=== PATIENT | male | born 1985 | race Caucasian/White ===

== ENCOUNTER 2023-03-12 12:50 | Outpatient (RCR) | payer OTHER, SELFPAY | END 2023-04-21 11:34 | disposition home or self-care (01) | LOC: PT 12:50 | PROVIDERS: PCP Nurse Practitioner Family | DX: M50.30 Other cervical disc degeneration, unspecified cervical region (principal) | CPT/HCPCS: 20561; 97010; 97012; 97014; 97110; 97140; 97162 ==

== ENCOUNTER 2023-05-24 14:00 | Outpatient (OUT) | payer OTHER, SELFPAY ==
--- NOTE | 2023-05-24 15:53 | PM.CN ---
Consult Note: HPI Data of Consult Patient: new to practice Consult date: 05/24/23 Requesting Physician: Christina Martinez MD Primary Care Provider: RAGHAVENDRA [facility] Consult Narrative Reason for consult: Left neck, shoulder, arm pain Narrative: 37yom who presents for evaluation. worsening pain throughout left neck that radiates into left shoulder and arm. began when lifting heavy object at work, felt pain throughout left neck. has tried various conservative measures, including provider directed home exercise program >6 weeks >3x/week, with limited benefit. has been worked up by neurology, with no acute findings on brain mri. cervical mri reviewed, which shows disc herniation at c5-6, as well as spondylosis in lower cervical spine. has utilized medrol dose pack and ibuprofen, with limited benefit. cc:: CC: Christina Martinez MD Review of Systems ROS Status of ROS 10 or more systems reviewed and unremarkable except as noted in history and below Meds Home Medications and Allergies Home Medications Medication Instructions Recorded Confirmed Type celecoxib 200 mg capsule (Celebrex) 200 mg PO BID 05/24/23 05/24/23 History metoprolol tartrate 50 mg tablet 50 mg PO Q12H 05/24/23 05/24/23 History Allergies Allergy/AdvReac Type Severity Reaction Status Date / Time No Known Drug Allergies Allergy Verified 05/24/23 15:34 Exam Narrative Exam Narrative: Psych-alert and oriented x 3.? Attentive and appropriate, constitutionally normal, displays normal mood and affect per situation.? There are no obvious deficits in memory, reasoning, or intellect.? Skin-no obvious rashes, bruising, or erythema noted to the patient's area of pain.? Extremities-upper extremities are warm with minimal edema and palpable pulses. Cervical- tenderness to palpation noted in the cervical spine and paraspinal musculature.? Pain is elicited with flexion, extension, and lateral rotation of the cervical spine.? Range of motion is diminished due to pain. Facet loading maneuvers are positive. Strength-unremarkable and within normal limits with the exception to the left biceps, triceps. Sensory-no notable sensory deficits in the bilateral upper extremities to touch or pinprick with the exception to decreased sensation to the left C5, 6, 7 dermatomal distribution.? Coordination remains intact.? Gait remains non-antalgic. Assessment and Plan Assessment and Plan (1) Cervical radiculopathy: (2) Cervical stenosis of spine: (3) Cervical spondylosis: (4) Cervical disc displacement: Plan 37yom who presents for evaluation. failed conservative measures, as noted. imaging reviewed, as noted. given symptoms and imaging, prudent to attempt left c5-6, c6-7 tfesi x2 under fluoroscopic guidance. he is in agreement. may potentially be candidate for cervical medial branch blocks, given facet inflammation noted. medications reviewed. will trial celebrex 200mg bid prn. follow up after procedure.
== END 2023-05-24 14:01 | disposition home or self-care (01) ==
PROVIDERS: PCP Nurse Practitioner Family; Visit Provider Anesthesiology
DX: M54.12 Radiculopathy, cervical region (principal); M48.02 Spinal stenosis, cervical region; M47.812 Spondylosis without myelopathy or radiculopathy, cervical region; M50.20 Other cervical disc displacement, unspecified cervical region
CPT/HCPCS: G0463

== ENCOUNTER 2023-06-28 07:16 | Day surgery (SDC) | payer OTHER, SELFPAY ==
--- OUTSIDE RECORDS SUMMARY | 2023-06-28 07:19 | XMS_ITS | CCD ---
Author Name Unknown Address [address] [place] [address] Organization [facility] Care Team Providers Care Billing And Accounting Staff Assistant Name Role Phone FLOYD VILLAFANA Primary Care Unavailable PRASANNA, MADELYN Admitting Unavailable PRASANNA, MADELYN Attending Unavailable PRASANNA, MADELYN Primary Care Unavailable FREDDY, DR NAKUL Keating Consulting Unavailable ZIEBER, DR MOE Romero Consulting Unavailable PRASANNA, MADELYN Consulting Unavailable PRASANNA, MADELYN Admitting Unavailable PRASANNA, MADELYN Attending Unavailable PRASANNA, MADELYN Primary Care Unavailable SOHEILA, DR MOE Romero Consulting Unavailable PRASANNA, MADELYN Consulting Unavailable PRASANNA, MADELYN Admitting Unavailable PRASANNA, MADELYN Attending Unavailable PRASANNA, MADELYN Primary Care Unavailable PRASANNA, MADELYN Consulting Unavailable PRASANNA, MADELYN Admitting Unavailable PRASANNA, MADELYN Attending Unavailable PRASANNA, MADELYN Primary Care Unavailable Amado Valladares Admitting Unavailab Amado Go Attending Unavailab Madelyn Jeong Primary Care Unavailable DO Amado Valladares Attending Provider DONNY Mims Primary Care Provider Earle Gore Unavailable Madelyn Raymundo Unavailable Juan BRUNO, Christina Cagle Attending Unavailable Medications Current Medications Medication Drug Class(es) Dates Sig (Normalized) Sig (Original) amoxicillin 875 mg / clavulanate 125 mg oral tablet (1 source) Penicillin-class Antibacterial Start: 05-28-2023 take 1 tablet by mouth every twelve hours Amoxicillin-Pot Clavulanate 875-125 MG 1 tablet Orally every 12 hrs for 10 day(s) May, Active celecoxib 200 mg oral capsule (1 source) Nonsteroidal Anti-inflammatory Drug take 1 capsule by mouth every twenty-four hours CeleBREX 200 MG 1 capsule with food Orally Once a day Active fluticasone propionate 0.05 mg/actuat metered dose nasal spray (1 source) Corticosteroid Start: 05-28-2023 take 2 spray(s) nasal route once daily Fluticasone Propionate 50 MCG/ACT 2 sprays Nasally Once a day for 14 day(s) May, Active metoprolol tartrate 50 mg oral tablet (2 sources) beta-Adrenergic Delgado take 1 tablet by mouth every twelve hours Metoprolol Tartrate 50 MG 1 tablet with food Orally Twice a day Active Completed/Discontinued Medications Medication Drug Class(es) Dates Sig (Normalized) Sig (Original) tiZANidine 4 mg oral tablet (2 sources) Central alpha-2 Adrenergic Agonist take 2 tablets by mouth once daily at bedtime as needed tiZANidine HCl 4 MG 2 tablet as needed Orally once daily at bedtime Not-Taking/PRN Problems Active Problems Problem Classification Problem Date Documented Date Episodic/Chronic Conditions associated with dizziness or vertigo (4 sources) Benign paroxysmal vertigo, unspecified ear; Translations: [BENIGN PAROXYSMAL VERTIGO UNS EAR] Onset: 08-27-2022 Episodic Essential hypertension (2 sources) Elevated blood pressure; Translations: [Essential (primary) hypertension] Chronic Other connective tissue disease (1 source) Other symptoms and signs involving the musculoskeletal system; Translations: [Other symptoms and signs involving the musculoskeletal system] Onset: 01-01-2023 Episodic Other nervous system disorders (2 sources) Chronic pain; Translations: [Other chronic pain] Chronic Other nervous system disorders (1 source) Other chronic pain Chronic Other nervous system disorders (4 sources) Paresthesia of skin; Translations: [PARESTHESIA OF SKIN] Onset: 10-30-2022 Episodic Other upper respiratory infections (1 source) Acute sinusitis, unspecified Episodic Spondylosis; intervertebral disc disorders; other back problems (6 sources) Cervical spondylosis; Translations: [Spondylosis without myelopathy or radiculopathy, cervical region] Chronic Spondylosis; intervertebral disc disorders; other back problems (7 sources) Cervicalgia; Translations: [Cervical radiculopathy] Onset: 10-17-2022 Episodic Unclassified (1 source) Laceration without foreign body of left little finger without damage to nail, initial encounter Onset: 10-16-2018 Past or Other Problems Problem Classification Problem Date Documented Da te Episodic/Chronic Unclassified (1 source) Contact with and (suspected) exposure to covid-19 Z20.822 Results Test Name Value Interpretation Reference Range Facility COVID + FLU Quick Testingon 05-28-2023 SARS-CoV-2 (COVID-19) RNA PEDRO+probe Ql (Unsp spec) Negative [facility] Other COVID + FLU Quick Testing Negative [facility] Other XR pre/post mri xrayon 01-01 XR pre/post mri xray [facility] Main [place] [address] [place] [address] MRI Report Signed Patient: Rosaline Li MR#: [id number] 30 : 1985 Acct:[id number] Age/Sex: 37 / M ADM Date: 01/01/23 Loc: [facility] Room: Type: [facility] Attending Dr: Amado Valladares DO Copies to: Amado Valladares DO Ordering Provider: Amado Valladares DO Date of Service: 01/01/23 MR/MR cervical spine wo con: [id number] ([id number]) XR/XR pre/post mri xray: post MRI cervical MR cervical spine wo con, XR pre/post mri xray 01/01/2023 2:23 PM SIGNS AND SYMPTOMS: Bilateral upper extremity weakness, neck swelling PROTOCOL: Lateral and bilateral oblique radiographs of the cervical spine. Multiplanar multisequence MR images of the cervical spine were obtained without IV contrast COMPARISON: None. FINDINGS: Radiographs of the cervical spine: There is straightening of the normal cervical lordosis. This preservation vertebral body heights and intervertebral discs. The prevertebral soft tissues are within normal limits. No significant neural foraminal stenosis. MRI cervical spine: There is mild straightening of the normal cervical lordosis. There is mild facet edema bilaterally at C6, left greater than right. There is preservation of vertebral body heights and intervertebral disc spaces. The marrow signal is within normal limits, otherwise. The cord is normal in signal. No epidural or paraspinous fluid collection is appreciated. The visualized paraspinous soft tissues are within normal limits. The prevertebral soft tissues are within normal limits. At C2-C3: There is a normal disc, central canal, and neural foramen. At C3-C4: There is a normal disc, central canal, and neural foramen. At C4-C5: There is a normal disc, central canal, and neural foramen. At C5-C6: There is a normal disc, central canal, and neural foramen. At C6-C7: There is a broad-based disc bulge with facet hypertrophy. There is minimal spinal canal narrowing with minimal bilateral neural foraminal narrowing. At C7-T1: There is a normal disc, central canal, and neural foramen. MR/MR cervical spine wo con IMPRESSION: No fracture or subluxation. No cord compression or cord signal abnormality. At C6-C7: There is a broad-based disc bulge with facet hypertrophy. There is minimal spinal canal narrowing with minimal bilateral neural foraminal narrowing. Impression dictated by: Bean Hill M.D.01/01/2023 3:26 PM Dictation Location: [place] [address] Transcribed By: [facility] 01/01/23 1526 Dictated By: Bean Hill II, MD 01/01/23 1523 Signed By: 01/01/23 1526 [facility] CTA NECK WO W CONon 10-31-19 CTA NECK WO W CON EXAMINATION: CTA NECK WO W CON HISTORY: Paresthesia , headaches, neck swelling, arm numbness COMPARISON: No relevant comparison available. TECHNIQUE: Multiplanar CT imaging without and with IV contrast. Multi-planar/3-D imaging to optimize visualization of vascular anatomy. Percent stenosis is based on NASCET criteria. Dose reduction techniques were achieved by using automated exposure control and/or adjustment of mA and/or kV according to patient size and/or use of iterative reconstruction technique. FINDINGS: RIGHT INTERNAL CAROTID: No hemodynamically significant stenosis or dissection. EXTERNAL CAROTID: No hemodynamically significant stenosis or dissection. COMMON CAROTID: No hemodynamically significant stenosis or dissection. VERTEBRAL: No hemodynamically significant stenosis or dissection. LEFT INTERNAL CAROTID: No hemodynamically significant stenosis or dissection. EXTERNAL CAROTID: No hemodynamically significant stenosis or dissection. COMMON CAROTID: No hemodynamically significant stenosis or dissection. VERTEBRAL: No hemodynamically significant stenosis or dissection. OTHER: Slight reversal of normal lordotic curvature of the cervical spine; positioning versus muscle spasm. The visualized soft tissues of the neck are also unremarkable. IMPRESSION: 1. Normal CT angiography of the neck. Electronically authenticated by: MOE PARNELL Date: 2022-10-30 09:17 Normal [facility] MRI BRAIN WO W CONon 023 MRI BRAIN WO W CON EXAMINATION: MRI BRAIN WO W CON HISTORY: Paresthesia , acute facial numbness, dizziness, tinnitus COMPARISON: No relevant comparison available. TECHNIQUE: A variety of imaging planes and parameters were utilized for visualization of suspected pathology. Images were performed without and with ml Dotarem contrast. FINDINGS: CEREBRUM: No edema, hemorrhage, mass, acute infarction, or inappropriate atrophy. CEREBELLUM: No edema, hemorrhage, mass, acute infarction, or inappropriate atrophy. BRAINSTEM: No edema, hemorrhage, mass, acute infarction, or inappropriate atrophy. CSF SPACES: Ventricles, cisterns, and sulci are appropriate for age. No hydrocephalus, subarachnoid hemorrhage, or mass. SKULL: No mass or other significant visible lesion. SINUSES: Limited views demonstrate no significant mucosal thickening or fluid. ORBITS: Limited views are unremarkable. OTHER: No abnormal meningeal or parenchymal enhancement. IMPRESSION: 1. No abnormal or suspicious findings of the brain. Electronically authenticated by: MOE PARNELL Date: 2022-10-28 09:35 Normal [facility] XR CSPINE 2_3 VIEWSon 2022 XR CSPINE 2_3 VIEWS EXAMINATION: XR CSPINE 2_3 VIEWS HISTORY: Paresthesia COMPARISON: No relevant comparison available. FINDINGS: BONES: Loss of normal lordosis. No significant spondylosis, scoliosis, fracture, or visible bony lesion. DISC SPACES: Normal. No significant disc height narrowing, subluxation, or endplate abnormality. PARASPINOUS: Negative. No paraspinous abnormality is seen. OTHER: Negative. IMPRESSION: Loss of normal lordosis Electronically authenticated by: NAKUL HAYES Date: 2022-10-28 07:46 Normal [facility] XR FOREIGN BODY EYEon 2022 XR FOREIGN BODY EYE EXAMINATION: XR FOREIGN BODY EYE HISTORY: Foreign body in eye COMPARISON: No relevant comparison available. FINDINGS: ORBITS: Negative for a metallic foreign body. OTHER: Negative. IMPRESSION: No metallic foreign body in the orbits Electronically authenticated by: NAKUL HAYES Date: 2022-10-28 07:43 Normal [facility] JULIAN DIRECTon 10-19-2022 JULIAN Direct Negative Normal Negative [facility] Comment on above: Performed By: #### A NAD ####[facility] [id number] [place] [address]Dr. Carl Gama ANTISTREPTOLYSIN O AB (ASO)o n 10-18-2022 Antistreptolysin O Ab 86.9 IU/mL Normal 0.0-200.0 [facility] Comment on above: Performed By: #### A SOAB #### [facility] [address] [place] [address] [address] Carl Gama RHEUMATOID FACTORon 10-19-19 RA Latex Turbid. <10.0 Normal <14.0 [facility] Comment on above: Performed By: #### R F ####[facility] [id number] [place] [address]Dr. Carl Gama CBC AUTO DIFFon 10-17-2022 BASO # 0.0 103/ul Normal 0.0-0.1 [facility] Comment on above: Performed By: #### C BC #### [facility] [address] [place] [address] Dr. Carl Gama Basophils/100 WBC (Bld) 0.6 % Normal 0.2-2.0 [facility] Comment on above: Performed By: #### C BC #### [facility] [address] [place] [address] Dr. Carl Gama EO # 0.1 103/ul Normal 0.0-0.7 [facility] Comment on above: Performed By: #### C BC #### [facility] [address] [place] [address] Dr. Carl Gama Eosinophils/100 WBC (Bld) 2.1 % Normal 0.9-7.0 [facility] Comment on above: Performed By: #### C BC #### [facility] [address] [place] [address] Dr. Carl Gama Erythrocyte distribution width (RBC) [Ratio] 13.2 % Normal 11.0-15.0 [facility] Comment on above: Performed By: #### C BC #### [facility] [address] [place] [address] Dr. Carl Gama Hematocrit (Bld) [Volume fraction] 44.9 % Normal 42.0-54.0 [facility] Comment on above: Performed By: #### C BC #### [facility] [address] [place] [address] Dr. Carl Gama Hemoglobin (Bld) [Mass/Vol] 15.2 g/dL Normal 14.0-18.0 [facility] Comment on above: Performed By: #### C BC #### [facility] [address] [place] [address] Dr. Carl Gama IG # 0.02 10e3/ul Normal 0.00-0.03 [facility] Comment on above: Performed By: #### C BC #### [facility] [address] [place] [address] Dr. Carl Gama IG % 0.4 % Normal 0.0-0.5 [facility] Comment on above: Performed By: #### C BC #### [facility] [address] [place] [address] Dr. Carl Gama LYMPH # 1.5 103/ul Normal 1.2-3.8 [facility] Comment on above: Performed By: #### C BC #### [facility] [address] [place] [address] Dr. Carl Gama Lymphocytes/100 WBC (Bld) 32.2 % Normal 20.5-60.0 [facility] Comment on above: Performed By: #### C BC #### [facility] [address] [place] [address] Dr. Carl Gama MANUAL DIFF REQ NO Normal [facility] Comment on above: Performed By: #### C BC #### [facility] [address] [place] [address] Dr. Carl Gama MCH (RBC) [Entitic mass] 28.4 pg Normal 25.9-34.0 [facility] Comment on above: Performed By: #### C BC #### [facility] [address] [place] [address] Dr. Carl Gama MCHC (RBC) [Mass/Vol] 33.9 g/dL Normal 29.9-35.2 [facility] Comment on above: Performed By: #### C BC #### [facility] [address] [place] [address] [address] Carl Gama MCV (RBC) [Entitic vol] 83.9 fL Normal 80.0-94.0 [facility] Comment on above: Performed By: #### C BC #### [facility] [address] [place] [address] [address] Carl Gama MONO # 0.4 103/ul Normal 0.3-0.8 [facility] Comment on above: Performed By: #### C BC #### [facility] [address] [place] [address] Dr. Carl Gama Monocytes/100 WBC (Bld) 9.0 % Normal 1.7-12.0 [facility] Comment on above: Performed By: #### C BC #### [facility] [address] [place] [address] Dr. Carl Gama NEUT # 2.7 103/ul Normal 1.4-6.5 [facility] Comment on above: Performed By: #### C BC #### [facility] [address] [place] [address] Dr. Carl Gama Neutrophils/100 WBC (Bld) 55.7 % Normal 43.0-75.0 [facility] Comment on above: Performed By: #### C BC #### [facility] [address] [place] [address] [address] Carl Gama Platelet mean volume (Bld) [Entitic vol] 8.6 fL Critically low 9.5-13.5 [facility] Comment on above: Performed By: #### C BC #### [facility] [address] [place] [address] Dr. Carl Gama PLT 321 103/ul Normal 150-450 [facility] Comment on above: Performed By: #### C BC #### [facility] [address] [place] [address] Dr. Carl Gama RBC 5.35 106/ul Normal 4.70-6.10 [facility] Comment on above: Performed By: #### C BC #### [facility] [address] [place] [address] [address] Carl aGma WBC 4.8 103/ul Normal 4.0-11.0 [facility] Comment on above: Performed By: #### C BC #### [facility] [address] [place] [address] Dr. Carl Gama CRPon 10-17-2022 CRP [Mass/Vol] mg/L Normal <=1.0 [facility] Comment on above: Performed By: #### U TIBURCIO, CMP, CRP #### [facility] [address] [place] [address] Dr. Carl Gama GLYCOHEMOGLOBIN A1Con 2022 ADA RECOMMENDATION SEE BELOW Normal [facility] Comment on above: Result Comment: ADA RECOMMENDED LIMIT 4.0 - 6.0 ADA THERAPEUTIC TARGET < 7.0 ACTION SUGGESTED > 7.0 Performed By: #### A 1C #### [facility] [address] [place] [address] Dr. Carl Gama HbA1c (Bld) [Mass fraction] 5.7 % Normal 4.5-6.2 [facility] Comment on above: Performed By: #### A 1C #### [facility] [address] [place] [address] Dr. Carl Gama PROF 14(COMP METB)on 023 Albumin [Mass/Vol] 3.8 g/dL Normal 3.4-5.0 [facility] Comment on above: Performed By: #### U TIBURCIO, CMP, CRP #### [facility] [address] [place] [address] Dr. Carl Gama Albumin/Globulin [Mass ratio] 1.1 {ratio} Normal [facility] Comment on above: Performed By: #### U TIBURCIO, CMP, CRP #### [facility] [address] [place] [address] Dr. Carl Gama ALP [Catalytic activity/Vol] 58 U/L Normal 46-116 [facility] Comment on above: Performed By: #### U TIBURCIO, CMP, CRP #### [facility] [address] [place] [address] [address] Carl Gama ALT [Catalytic activity/Vol] 72 U/L Critically high 16-63 [facility] Comment on above: Performed By: #### U TIBURCIO, CMP, CRP #### [facility] [address] [place] [address] [address] Carl Gama Anion gap [Moles/Vol] 13.2 mmol/L Normal [facility] Comment on above: Performed By: #### U TIBURCIO, CMP, CRP #### [facility] [address] [place] [address] [address] Carl Gama AST [Catalytic activity/Vol] 30 U/L Normal 15-37 [facility] Comment on above: Performed By: #### U TIBURCIO, CMP, CRP #### [facility] [address] [place] [address] [address] Carl Gama Bilirubin [Mass/Vol] 0.6 mg/dL Normal 0.2-1.0 [facility] Comment on above: Performed By: #### U TIBURCIO, CMP, CRP #### [facility] [address] [place] [address] [address] Carl Gama Calcium [Mass/Vol] 8.5 mg/dL Normal 8.5-10.1 [facility] Comment on above: Performed By: #### U TIBURCIO, CMP, CRP #### [facility] [address] [place] [address] [address] Carl Gama Chloride [Moles/Vol] 107 mmol/L Normal 98-107 [facility] Comment on above: Performed By: #### U TIBURCIO, CMP, CRP #### [facility] [address] [place] [address] [address] Carl Gama CO2 [Moles/Vol] 25.7 mmol/L Normal 21.0-32.0 [facility] Comment on above: Performed By: #### U TIBURCIO, CMP, CRP #### [facility] [address] [place] [address] [address] Carl Gama Creatinine [Mass/Vol] 0.95 mg/dL Normal 0.70-1.30 [facility] Comment on above: Performed By: #### U TIBURCIO, CMP, CRP #### [facility] [address] [place] [address] [address] Carl Gama EGFR-AF BURUNDIAN >60 Normal >=60 [facility] Comment on above: Performed By: #### U TIBURCIO, CMP, CRP #### [facility] [address] [place] [address] [address] Carl Gama EGFR-NON AF BURUNDIAN >60 Normal >=60 [facility] Comment on above: Performed By: #### U TIBURCIO, CMP, CRP #### [facility] [address] [place] [address] [address] Carl Gama Globulin (S) [Mass/Vol] 3.4 g/dL Normal [facility] Comment on above: Performed By: #### U TIBURCIO, CMP, CRP #### [facility] [address] [place] [address] Dr. Carl Gama Glucose [Mass/Vol] 117 mg/dL Normal [facility] Comment on above: Performed By: #### U TIBURCIO, CMP, CRP #### [facility] [address] [place] [address] [address] Carl Gama Performed By: #### A 1C #### [facility] [address] [place] [address] [address] Carl Gama Potassium [Moles/Vol] 3.9 mmol/L Normal 3.5-5.1 [facility] Comment on above: Performed By: #### U TIBURCIO, CMP, CRP #### [facility] [address] [place] [address] Dr. Carl Gama Protein [Mass/Vol] 7.2 g/dL Normal 6.4-8.2 [facility] Comment on above: Performed By: #### U TIBURCIO, CMP, CRP #### [facility] [address] [place] [address] [address] Carl Gama Sodium [Moles/Vol] 142 mmol/L Normal 136-145 [facility] Comment on above: Performed By: #### U TIBURCIO, CMP, CRP #### [facility] [address] [place] [address] [address] Carl Gama Urea nitrogen [Mass/Vol] 7.0 mg/dL Normal 7.0-18.0 [facility] Comment on above: Performed By: #### U TIBURCIO, CMP, CRP #### [facility] [address] [place] [address] [address] Carl Gama Urea nitrogen/Creatinine [Mass ratio] 7.4 mg/mg Normal [facility] Comment on above: Performed By: #### U TIBURCIO, CMP, CRP #### [facility] [address] [place] [address] [address] Carl Gama URIC ACID SERUMon 10-17-2022 Urate [Mass/Vol] 5.2 mg/dL Normal 3.5-7.2 [facility] Comment on above: Performed By: #### U TIBURCIO, CMP, CRP #### [facility] [address] [place] [address] [address] Carl Gama Semen An/Cnton 02-03-2021 Crista/Transport Prob No Problems Normal [facility] Comment on above: Performed By: #### 1 [id number] #### [facility] [address] [place] [address] Collect. Meth Masturbation Normal [facility] Comment on above: Performed By: #### 1 [id number], [id number] #### [facility] [address] [place] [address] Days Abstained 3 day(s) Normal 2-5 [facility] Comment on above: Performed By: #### 1 [id number], [id number] #### [facility] [address] [place] [address] Graded Motility 2 Abnormal [facility] Comment on above: Result Comment: 0 - Non-Motile 1 - Very sluggis, no forward progression 2 - Forward progression present, but very slow 3 - Good forward progression with tail movements visualized 4 - Rapid forward progression with tail movements difficult to visualize Performed By: #### 1 [id number], [id number] #### [facility] [address] [place] [address] Motile Sperm 13 % Low 60-100 [facility] Comment on above: Result Comment: A lo w motility result of <30% may be the result of non-viable or non-motile sperm. Viability testing is not performed. Further viability assessment may be indicated. Decreased motility may be due to either Non-viable or Non-motile sperm. A low motility result of <30% may be the result of non-viable or non-motile sperm. Viability testing is not performed. Further viability assessment may be indicated. Decreased motility may be due to either Non-viable or Non-motile sperm. Performed By: #### 1 [id number], [id number] #### [facility] [address] [place] [address] Semen Viscosity 810 minute(s) High <=29 [facility] Comment on above: Performed By: #### 1 [id number], [id number] #### [facility] [address] [place] [address] Spec. Container Steril Container Normal [facility] Comment on above: Performed By: #### 1 [id number], [id number] #### [facility] [address] [place] [address] Spec. Temp 23 DegC Normal 20-37 [facility] Comment on above: Performed By: #### 1 [id number], [id number] #### [facility] [address] [place] [address] Sperm Count 24 Million/mL Normal >=20 [facility] Comment on above: Result Comment: A Co ncentration Technique is used to evaluate all sperm counts <20 million. Performed By: #### 1 [id number], [id number] #### [facility] [address] [place] [id number] Sperm pH 8.0 No Units Normal 7.2-8.9 [facility] Comment on above: Performed By: #### 1 [id number] #### [facility] [address] [place] [address] Volume Semen 3.3 mL Normal 0.7-6.5 [facility] Comment on above: Performed By: #### 1 [id number] #### [facility] [address] [place] [address] WBC Semen 1 - 3 Invalid Interpretation Code [facility] Comment on above: Performed By: #### 1 [id number] #### [facility] [address] [place] [address] Sperm Morphon 02-03-2021 Sperm Morph <20% abnormal sperms identified. Invalid Interpretation Code [facility] Comment on above: Order Comment: Order Added by Discern Expert. Performed By: #### 1 [id number], [id number] #### [facility] [address] [place] [address] Coding Summary.on 01-31-2021 Coding Summary. CD:[id number]:[id number] RDl0cLp+PGhlYWQ+PE1 VVCRuY30zzYSslT2GG7 sKZD1XYWZVMHKEMK3UB L1hvOZ2RNxeH4TnmgYe EduqyLCxCM58BNe3SHN 5iXvnEWhclC5keAKfR6 z7InUyCU68wY96VIqbX GOeUyV3EnWbjusefYOn P3xmKtRclHWnHut+PHR hYmxlIHdpZHRoPScxMD DvAmLtmCpqWJ0jCx2dH GVyLWNvbGxhcHNlOiBj n8uwCEWqASwaPA6ldMf kR9LitUC4VPDbi5d0Ni 48dHI+KKRbUQL0eYvbF Mdoa732NjLav7ocSDC4 uYZwSGoqYXR4K00wu0U 4DRYdMUDmBIW6aBU0hX 9paNpzezspX5MyhLZvK pQ9RNS7eVGbfM6mnCap lqnmiW5oDww+U57RXO7 SXWZFQH4OTmw1W0BcSc wvdHI+OU92OBBrXF97l OLnuULye6sczJi0HaTa KTZvUHY5xOubTHsxj9U wRFWdO14xoGPdt4C7JN JruKudjNAfJaIetDZ9w P0hJQjdexefn2pywwml Qicok6truo50pL92B30 pWRvsCMYfMPP8AKUfBE QryGylzq9ciG3bKo1+I Mdfy9kon8lohTd8PeSr AKWcpuThsFlqUMZ1i0S tQb50U3IgvTtkr6XlKe d3sk29nQBtf7W9aWW7Q AdrZBMkgR6qIQgcJfM6 PUPmQeIlgQ59xLUaTTm iFh5uxJchwLraQF9kSQ MycksmERXwsA1jURBtm XGvwAgjDI5eLUOudhyh t820ImFsMEE0DDLwtXU eQ9YxjC0qBmYcCNKuEN StH9IgsPIiLIeiI496O UlgUxR5QNRvuuVoE4Rc SZJxpEusWlP4c4W2Wf4 Sp6ZeskflNLQ8QDkgTA W5CaIlZsKnCcS7B9WfT rh3AMPlySkoZT6nE1Jd AAPvfldkxsyabBL3RMJ zZPDxmT08eYVpLZakWr 9qt4A9l064DMGkOJQcs S25Uq3oaRmpKFNufXZB kD3cezqvs7shichnWdL fVHXwSBy6GSd5AFIakO qwMjHbQEW4QqQ8BRA5b FJutT8xdKdhbthsqV5n Oyc+E81wdF0aNYJ7RIO 1dldvDVPofuBxRS68KB 69A1MlMfrroCHenWB+P MJcucLujCgjCV8bGaTo l3kqn7UfZGiaM4PkCTZ jOFdzUbt7LTGmZLR0bY J1fH3wSUPtYQbxl1W8j ZX5D1RlheMxgl9nt7ij VDPoEWbaA36wlXAva0T 4IPKbqQE9JMDkfGqhFu JjyU11Pzk+PGNvbGdyb 5PkSbnni1dxh5htfKp1 IjMwJSIgdmFsaWduPSJ 5y5HqPr56H09nJUcsMT RoPSIxNSUiIHZhbGlnb h8xdR5xHp1+PGNvbCB3 fPA8zF9nIGGqAvD8NXq fP591EzCubGEqGdgzm6 ati7xpfJh1UeWtZJHuh gVwdKlpGIW3l5FaXy44 F97jOTloISEqGDEpRRH bXFOegBglfi2xxX9bCc 8+OU4yd3ujce62uE53h HI+NKRxWIN3kHguZGkm UQEjxD7fPRarMnX3OPE vZwTblC38aANmOBglWw 0vxTlwrHhvYV2xMGJhp zskq425UnYsk0efAKAa cZRyEQogZVA0Z25rx2P 9LHZiZZGaRCE3lZQ3uP 1hbGlnbjogbGVmdDsgd kDmfWnvJZqqQFeiF760 IHRvcDsnPlBhdGllbnQ sWxEeLHu5O5HxJti9YR UplJrrLZ2zqPXgBNttJ k9fbWyltGovGD8tJFNs tlomh641JqBjk2kqAEE esLMcYXjiSKF3B16qh7 M1QQJaLNFhQBO4zRR5m R5tcLlnwzuoyBCcoDfv zcCreJyiCSpqLMxqM75 6IHRvcDsnPkJpcnRoIE EaiQV4IP39DL62fDPxp 9Z1zYB8X6JfZYJvxtew cbxduSL7XGWnUQUnxN7 2Pc4vuGbpSc1fLJLpBS S7IMIuuESjB0OkjE2qE kKeYFGePXJqM3EefDFe JAnrY081ZYusDnB0SQG nkzHwX2SdWCEurLdwUe R6u6R8Ma0BH5R2OI92Y R44yNUqh3A9oXQ6B6Ah CJJucjyudlgshJF5XHN zLLPjeH94Bs5tgJnfYi 5yMPSrALY4TLTsdXWfQ 8XjqO0dFnPdBOPcWIJk N4QoxQYeKVviN847BUg rHyW4UJInbdLkW8UiTK SvqKwcRpT8u3O1Uy2SC Cz8PL85CD78iLDgp6Q6 mXO3L1PzRBRegvjcmup xyVD1KVElGZDkrI68Zt 4ejXecJk7nYNInGET4S VXmhPPyQ3HzfC0eVjVy YZEfCOLqT1RxlXDdJNt rN441JRkuXcP5TYJtxj DpD6AwKLPzqUsuTjZ7c 8T0Hn5KKDYqJX30IYX5 rIA8VY34SS69D8FlQoc vdGFibGU+PHRhYmxlIH dpZHRoPScxMDAlJyBzd AtuHT1lCx0aRVMjYTHl pUlncISyVsFax3dzZGL kTYyoAS8wzUxzJ4KcbC D5CAQhc6h2Zs28D79mG 3JvdXA+OWJyiHK5zOU8 tC6kZmVbCaJ7YKvgE59 5OyWbhNQjCxjov8zod0 lkaFt9DuB4AFKlctGhi KpoUOX0f0TcFp72S25a IHdpZHRoPSIxNSUiIHZ ysTdxkm6fvD3iQk7+PG OiwXL2gWQ6sW5wNoUrA sP2CLwkO647XcYcwHOk Moagh8bmj1pgjLm9WbZ uXHLnwiLatXxgJME9d5 JhJg62M4TgaRign5OtD pa2qx36dCAqh0E4cOR8 S1NpARUhjxlmeRAcgHq sQH6nAZQrtccvBQQqlF 7yTSAxH7b3XlDeIzI4N YntA5RuvpG8GACcxNJa ELtsSID1C78mw2N4XRG cQMXhHKQ9wBT8vW1fhT lnbjogbGVmdDsgdmVyd NtvPMyhYVynP128SWHi wFsvZXCxkO3uWRZnuEP gdIuxZR1oFTGykynvRe xYH3IBTYowFZpEULP2C 5LmRip4JXWvpKtnAR7s vXZqFElhXv5ksUvjfDv iEN9hUANvkeqtXFRrxB 1iMFBjaBBzfHciFQ4gK QEbmvrjn770GmMbERB7 AKYpePQeE5ThdO0eAbM mKJQcJXKqB5AbsEVfNN wnM810JQesFlN1PRCvj bNqZ0PuYDTksHybIqI4 m7L8Wl4qBj7jLu8iCNr 2RS14LJ16gFWka2Z5jO A0G9RkNKZyvsgffkipg GH0DERiVIZnoN66cJBw BGpaAf2ob7S4g469NEJ oSPPhvJ70Ue2dkXbyTS OqsEWAgZ3qbwbbm1zoz dnkVzPkRHPfHVl1HLu1 BQCulOziOmMbMWL2XzI 9KQG5vXIypI9ybAkpft fjoZ4uMeo+MzMgWWVhc aN4L4UhAyo3KGEzrUat NV4vdEIgZOyeXn5nsNg lbRmvCL9sPHHhlmqxZA DbbS3jSFTsdMNfmCguH K5qYDYzigchs897AaOk WQA2RRSznECzI1EjeQ5 iRkFuJDGfKIOpU2TnvC KlYLckO731GNziJqK2Q XVdurPuJ8FxZFWcuMgc DdX2i5Y5Cm3GGAgdDO7 0OO25jJQej2R7gSL4Z3 SeFOBdhttcnoiqcRV1V QSuIZYsrR81mDOkQEou Ue7lh9K9u098UNLxFYH dhS15Ld2miVscWWFhuT LZzF0jnlwjv0evgqfeU yEtVOVaYSe6MPf2ZSYn bDqtKuVhGUE9KxF3GEE 6dGIjfQ6nnRbwxdsiyJ 9wOyc+O3I2rCT8wPOsr DwvdGQ+OT33oi82R5Wb TlgaOuj8QXJnFHR0hQU 1wO1eRZBjVQknm0H6bE G4Z3AuwwSftx1qr2zuS REoPHjgW46ebJNrd9C7 QMRacAK3DOSiiTczKyX mmN37Eyp+PGNvbGdyb3 RsAuzby2wsj6hdwDc7X jMwJSIgdmFsaWduPSJ0 u8McQh05O75rQBsbYRH oPSIzMCUiIHZhbGlnbj 4tpX9sDy7+LFXzjMY8n FO9zG1hAnXlAgP2QWhd T794LmTfqBYtOebrt0s ox2pqfKr0LpHjOKIrhi MmaKzjHDW1z7PwBc67B 4VmwPnin5OaWbz4af55 uIKyl3U3qHD4R1JcXQV klltwiGQxiYtlJD8iKP MvmsadSAByzE7yFVBiH 6g6IyCfOjO2BOswL3Nx agC1UTHkfDHaCTVimVK TjN2dlpyas0abmkyyLy NbYJIoCXt1YYz5UWIep AkxJeRpYLM1VgW7CRQ6 qOAqaM4zlRpkeiretB0 wOyc+JDp2q7kgsDRyDP 2mkJA1PH04IM43zOVnw 1Z6gZV3X8IrRTPputii pysitJE3NROwFLXemI0 5Sc1ysDoxNp4bVLUmTU K1FLSkbAObV9NqzK8qZ eCaXFUwJXYgR4HzhQCq VMmeG453AZcaAmZ2NPV stdKmG9HzIZBymVqwDo B0k8N0Km0KFG11ZQ72O T69aKRwh4H3kJG4K2Cl OJUbreiefgpaaJL2UAE kUCAhnZ98Oy5gaPjmIu 3tZSFqRYI0FMXklXVcR 7GcdU7kGhGoLTToFNDw G6VpqOEeVQdsU032UDe zDsD0ZZKfysVxY5SeQZ OhnDtaOuV6m7R9Ut6HH k60VO70VS24fNSja1F8 lFW1B7ZfYECgqglymsw toOA2GLFlIFOcoB11Hy 6ivXhsPl2rKFOlHVG2L KXezLFlZ1GstG0dIxDq XFCnRNHoB2XawYFqZNu eQ203LRdsNqB0YTGdta JgN6XuDZSzrHwaVgJ7j 4J4Vz8LTGumokq6V0Kz PjwvdHI+UV08TRWuJW2 6rUBjmSBle3zxnWm9Su JzPUSzKRO7nLiuBYolm 0HoLYPrI00djHTcm9Z1 IGNv (more content not included)... Normal [facility] and [facility] 01-31-2021 Follitropin Qn 6.4 m[IU]/mL Invalid Interpretation Code 1.5-12.4 [facility] Comment on above: Result Comment: Perf ormed at: [facility] [id number] [place], [place] [id number] PhD Vivian Bass Performed By: #### 1 [id number] #### [facility] [address] [place] [address] Lutropin Qn 10.4 m[IU]/mL High 1.7-8.6 [facility] Comment on above: Performed By: #### 1 [id number] #### [facility] [address] [place] [address] Testosterone F&Ton Testosterone [Mass/Vol] 287 ng/dL Invalid Interpretation Code 264-916 [facility] Comment on above: Result Comment: Adul t male reference interval is based on a population of healthy nonobese males (BMI <30) between 19 and 39 years old. katelynn Thompson.al. JCEM 2017,102;4130-3027. PMID: 63009353. Performed By: #### 1 [id number], [id number] #### [facility] [address] [place] [address] Testosterone Free [Mass/Vol] 7.1 pg/mL Low 8.7-25.1 [facility] Comment on above: Result Comment: Perf ormed at: [facility] [address] [id number] PhD Vivian Bass Performed at: [facility] [address] [id number] MD Josef Almazan Performed By: #### 1 [id number], [id number] #### [facility] [address] [place] [address] Consent for Treatmenton Consent for Treatment [id number]#1.00CD:127 Normal [facility] Physician Orderon 01-27-2021 Physician Order [id number]#1.00CD:127 Normal [facility] Prolactinon 01-27-2021 Prolactin [Mass/Vol] 9.62 ng/mL Normal 2.64-13.13 [facility] Comment on above: Performed By: #### 1 [id number] #### [facility] [address] [place] [address] TSHon 01-27-2021 TSH Qn 2.00 m[IU]/L Normal 0.34-5.60 [facility] Comment on above: Performed By: #### 1 [id number], [id number] #### [facility] [address] [place] [address] [place] [address] Coding Summary.on 11-11-2020 Coding Summary. CD:[id number]:[id number] PBk1nIn+PGhlYWQ+PE1 EEAFaG74owFBmkK8PE1 yQMX6HNVEGOXEUUF4EL Q2gyAL8QYknC8LrnoXo ZwmxvDDsVI44BMm7EQN 8jLlnDBamyQ6stBLyL1 k7KwVrVC20qR74CAczW XJyAjN2ZpYeflqylSGf B8tvAlJesMDdDzq+PHR hYmxlIHdpZHRoPScxMD KyXpJgkKctUY9wGw1rK GVyLWNvbGxhcHNlOiBj c2enBBUuSDifBL4osFz yY0WjqOP5BRBts1i5Si 48dHI+AYPpXTF8oUmuY Cbwa331CgPoq8ltVFP3 oGZnKHqfRVW0I06lo6K 2AXCdMTAiNDF9wLU9wR 1zcDwncxohV8VljXWpW dQ7KFT7bWQndH9ynJgm sstfrM0kZck+G45QFT1 HPHYUMO5MZvl5K8BoRd wvdHI+HB01SJVaTV68p DMfzWGna5kzgMs2UxIs WCKmTUW4iTrnGPbwy6T kUGEdW36bcUQvi9Y4BL CokDgyjHOdWuBuhQS2j F1sLUjqsixbf0vagvky Bhydr5lawt68fF74D20 vYEjeWFIvPXB9YBCyNO VaqDbnzh9rfH4oZr4+I Reyn2khb6nlvGi6CvTn KWWkofWrcJnrITB8s7R tUc83L1PpdUfsc8BwFp m1lv13wXArd8V1kOB1K MtdWPVmvQ4qNSzkCrN3 KCKjTnWlrI18jZNoCJs bCd5ppFjuzOqsSP5kWT PwrifzABRyiJ5iOGMfi UYzhKsqFU6qNWOqnuxt q919ThVkPFA6QVWfeMA iH7BjaO8mSjKiKZKbYE MeK5PubFYsYAjsC127I IifHtP8QWWjuaDyC1Yr UJYfqRkbDuP2h1X6Lk0 Xv7KcksncFHX8WXgsXB T4WvS1PyKyEyM1P7MdG ge2DPRujGuuVC9vW7Lw DFKvwpvwagfyfFY7QWQ tJAVkpF03vVJlSUzeQm 1jn7I8m665EXVxXQEvf T27Ky2rvZyuBYGhaVBP pG8dejjge5gvgiopPeU dPXLjRKj1KOi3ICXguZ ykNoFbNDK9ZtI1FDF4t XEfqX3qnSvommpvoW3p Oyc+V02exT4mQPC1CYD 2nqrcIVDbsrWuBH91QW 11T4IxGcyqlMZdaJE+P EHwmjHadDucGO7vUsIh l0ufy7BrCWvgM1YiYQX vJTjyJun7JNGcZAB1bH W9jY7oHGEnGYpfr3L4w BJ3F2QmzlRoov1dj7iv OIAwGSieT79ojFXfo4B 3HUYcuGB7FLDacUwrMu CoyW80Sqj+PGNvbGdyb 5PeJbtwv6oia6opvXf6 IjMwJSIgdmFsaWduPSJ 4z4XpJh16J77eKLcfDC RoPSIxNSUiIHZhbGlnb o5peX7bUz9+PGNvbCB3 vNI1bO8vVUMfTtM5QNx uZ072EnWeyAXkZyxtx5 eid2qtiZx8MuZaCBQiu rRnoIqcFCS7c3GyKi29 P79kEEcyMOBvVFGjQIE xFGLszJdlry4gcI8aLu 8+IR3fq7aosn31kE76h HI+UKMrDPM4jYjeFJmj ODZvbD2vOGfkHaS1DIL gAePhdR75eRLxKRcdZg 3rjTejlBlqVT8nUQJdf ucvc528GvSve2dkZHNb pSZiECbsCVQ6L09qp8K 5VXSoLCHsCCX6aRS5uW 1hbGlnbjogbGVmdDsgd uUdgQhgKWtkMTpgQ405 IHRvcDsnPlBhdGllbnQ qIhTdTKn5U0BiDam5DW JwhHhvSU6jbZJpFPydB t4lmYtikDjxMJ9qPROn bjqii975ZwSpd0geGUH mtRTfAOggKTJ8S47ai1 T9ANZlKTIiOTE1fIX7c Y8ynKnyypxjpLQpmVkv gcNwxWrhQOkbIQvyM23 6IHRvcDsnPkJpcnRoIE NywIO1HV16NH92fTTmj 8A5nGH7F2GjWOOnvpls trdprYV6DINrDWLkpZ9 3Bv0dnJiyYi4nAOFdHO F2SBAhfHUbY7OmlO4uN oQpTPEoARNiI0BukYGt OPqfX746ICjwIsE7SRE llvTwF6McJNSxdIhiMa V7m8K9Di8WL7N0PA60U V59mFBap9Y0qNB1G2Vh PIJoudjbofaimCT9CIU uLBXowC88Bd0tmZzwFy 5vAIFcLJM5OQUahLXwN 8UhpX0yGzFhGCVrEWDy O5XvdKDoMVzzM231GVn yAyU2XXBibcEeG9KkMQ YthPwxFgQ7u9H5Jo4SJ Jp6AH86YF98uSGne9T2 uMS4O9OnKZNgjndgwsp bqLI1OJGrMSElcZ89Xd 4rgIthGp0cJCRhKKK8Q FCijXEgV9AzqH9oQjDn GPVzDFSdK7NwcACuDYg dQ642YRavRpH5WDIfsp ZsU5KkLYRjrRhrYhO7u 9R3Wn1ROWEiAR88ENS5 cWP3SG21JE67L6LoTfv vdGFibGU+PHRhYmxlIH dpZHRoPScxMDAlJyBzd UfgTR0zOs4iSQMaFLAc bOrtrEAeHyMvq2fsGJN pZLqoIV6hbGedD4ZrtG R0EFGyr6d3Cn36P73rN 3JvdXA+PTTzcQK9vHE8 jL7hTcRqOnB8TFfxB93 2ZiPnwWHqEuzug5lef6 tpdSg5FmJ8IAMyyqAvh AoiIWF2v2ZdUu58K66x IHdpZHRoPSIxNSUiIHZ fgPdkhh2svK5lEi0+PG HruNG2fXN2lZ9qHkDfG yD0EVmnF824JqUrvCZr Qkbxo0dbl5mzbWk1XoV lSNXznjYjlWinFDB8f7 IfRr82U6DdpQzfm8KaO ye4mf62iFIfx6V5tJQ8 Q3HzAYRtpnmsnPLdxPq nMP3aRNHflhkyLNShgT 1kIQEnU9a8ZbFaPwY7L QwcP7LkvaQ3YGWbwJLy STxdHJD6S41va6F9PSD eMIFtUUS3cPZ9nU6qxF lnbjogbGVmdDsgdmVyd YotCOeuWErtG401UPIj kAsaXLNbiG2bVSUdhVF mrKppLR8wGPGqkbtyXp nUZ5IBJIswVJrOQLF0V 5DuCap8YKTlbRgwMP7y qMMyKAwtOf0nkFiakXr eHZ7fWCUslbdvWRHvdP 1hFHAlgDMbwRqfCR5iS MZkjmupl261XkXmZGW8 DDLvmAJzP6EkiU9bVzJ iHLRjKJWzT6YpuZBbLQ qaS129JJceXhD8VXSyf hJuM9BkYRAatZzyXsJ9 s3N7Db0zAq8xAa0lSTx 3XD79NG40kCSll4C2jZ X9B4HiQLFpinhmhbnvk QK3CEJrBXRkfB35nAPc AHfrWt5ny1V4x141PFU pXJFxoS32Gv2ofGxoDL DwyWAByE8sasjbo4azp rtnHbJmVWUbJQk2HAd9 XWXemTqqRzVjDEO3KnS 3TVT7sFIirB2hnAtcwe uzaO4gYqy+MzMgWWVhc hM5W7WtAsj4DFTlcOcw KW0msQHaUAlcXv6xzZt chJcvMZ1jEQAtbxykPX IwbO9eQYMeoDAuyUvaP C7sSUNlnqrmm530FsIg TKJ5ADEdxULuS7NszL4 cMcFvIXSuIXVdE5EmtB RoJNnzT131IBljSjO0X FVuiqLnH1RbUOLdiUtx ImU2b4H1Ay8BOPjiVS0 2OC88fOMfu8J4bXN0F9 XnKGAbfqwgbdjodMB3H LPtJTNdoE55fCZeOYev Jn6qi2N1l985JMStKEM liK53Qb4vkDnjKFTyeI JXtJ0wyppzd4vxdtmbS mIyRPMdTQu9QPc8ERVa gRkbYdNvDXO1VmN5JGV 8rUXvzD7ikMjvspxenS 9wOyc+OYXlGDJff7Ajj 9VnON08FB17I6XrUjcm dGFibGU+PHRhYmxlIHd pZHRoPScxMDAlJyBzdH qyYM0yEd5bMVClTBImu OwxiVNjUgCax6yzWYKm XBtvMA2axYxsJ2DetON 8KIGuj4e8Ds92V39uW4 JvdXA+ZDKyxIC6zPM8r H6pCtZyKdK9QLetT804 KnRzuAEkAmetn4byw7z mgJb8RpAcDNNgccTavB rjLNR3c0ZzWy35C08eF HdpZHRoPSIyMCUiIHZh mEeizk3grS6qFe1+PGN dnEJ1yWY6gJ1qRtAmJb A0UFrxL980WwIjjOOjJ eiyZ65nP2TvnIB+PHRy Xxf1DJZzuKcwFW0pqSZ zDVuzIe9hPOU7FyPhDy UeGBjqT4SoSUEzvnzin qceiSV2ZLMdKESkqL52 At2ikMbeAz4nRIIvDLW 8KVXzmBJqY7WekV7oBg NhIJYtJJGwJ1EjsPHiN NhgG647GOzhOuQ7UYAj dbNeT3PuYCJqcFjsMzF 7m1Q6Xf0WoVqlxNUtZU 8sZlFyAKp1A7LoIhr6O URrsBsgCI3ivTKnRIdj Zu4ckVxcxMfrGD2cQGX zccydc300YhIkh3pbXN TkyMJtBWkeQUA7E33dn 9W0XVIqKUZuUFT7vML5 eE5qsSnmvkeidIZqkLr gdmVydGljYWwtYWxpZ2 10EOKnyYdoBuNFIhn1H 5RcJxo2BMUrzZvhBW6y xUUgHWbtKf8ghJnyeCe xZX3hVFEdypeuv543Sx Fgr0azBRSfyDJiGAroZ CL8I02mh0C4MTNePXGz UFE1kQN9pZ6geTosgjo gbGVmdDsgdmVydGljYW ozRXdvW670BTPftPcnO f1LJvp7G2HtAxe0RSNi xDobRE0enIGgNUkzKi7 sdAygvMagYQ9gBSJhlb pfi502CkFxr0taEZDfc YEwRCgrCZJ1S52rc2H8 MWLvHUCwAXS4vQO5yN1 hbGlnbjogbGVmdDsgdm SuoRvpKQhhIVsyK855E HRvcDsnPlBheWVyOjwv dGQ+CX57sg95I6FwQvi zFeg0ZDTfULY4oYP7mE 8kXSXkUVznz8A9xRD2T 4WeiqZofw4aa3fvWSXa ZTog (more content not included)... Normal [facility] Semen An/Cnton 11-05-2020 Crista/Transport Prob No Problems Normal [facility] Comment on above: Performed By: #### 1 [id number] ####[place] [address] Collect. Meth Masturbation Normal [facility] Comment on above: Performed By: #### 1 [id number], [id number] ####[place] [address] Days Abstained 4 day(s) Normal 2-5 [facility] Comment on above: Performed By: #### 1 [id number], [id number] ####[address] [address] Graded Motility 3 Normal [facility] Comment on above: Result Comment: 0 - Non-Motile 1 - Very sluggis, no forward progression 2 - Forward progression present, but very slow 3 - Good forward progression with tail movements visualized 4 - Rapid forward progression with tail movements difficult to visualize Performed By: #### 1 [id number], [id number] ####[address] [place] [address] Motile Sperm 44 % Low 60-100 [facility] Comment on above: Performed By: #### 1 [id number], [id number] ####[facility] [id number] [place] [address] Semen Viscosity MAXIM Normal <=29 [facility] Comment on above: Performed By: #### 1 [id number], [id number] ####[address] [place] [address] Spec. Container Steril Container Normal [facility] Comment on above: Performed By: #### 1 [id number], [id number] ####[address] [place] [address] Spec. Temp 21 DegC Normal 20-37 [facility] Comment on above: Performed By: #### 1 [id number], [id number] ####[place] [id number] Sperm Count 33 Million/mL Normal >=20 [facility] Comment on above: Result Comment: A Co ncentration Technique is used to evaluate all sperm counts <20 million. Performed By: #### 1 [id number], [id number] ####[address] [address] Sperm pH 8.0 No Units Normal 7.2-8.9 [facility] Comment on above: Performed By: #### 1 [id number], [id number] ####[address] [address] Volume Semen 0.9 mL Normal 0.7-6.5 [facility] Comment on above: Performed By: #### 1 [id number], [id number] ####[address] [address] WBC Semen 0 - 2 Invalid Interpretation Code [facility] Comment on above: Performed By: #### 1 [id number], [id number] ####[address] [address] Sperm Morphon 11-05-2020 Sperm Morph <20% abnormal sperms identified. Invalid Interpretation Code [facility] Comment on above: Order Comment: Order Added by Discern Expert. Performed By: #### 1 [id number], [id number] #### [facility] [address] [place] [id number] Physician Orderon 10-31-2020 Physician Order [id number]:127 Normal [facility] Vital Signs Date Time Vital Sign Value Performing Clinician Facility 05-28-2023 15:45-0500 Body height 177.8 cm Madelyn Raymundo [facility] Other 05-28-2023 15:45-0500 Body mass index (BMI) [Ratio] 32.85 kg/m2 Madelyn Hammmond [facility] Other 05-28-2023 15:45-0500 Body temperature 98.6 [degF] Madelyn Hammmond [facility] Other 05-28-2023 15:45-0500 Body weight 103.87 kg Madelyn Hammmond [facility] Other 05-28-2023 15:45-0500 Diastolic blood pressure 111 mm[Hg] Madelyn Hammmond [facility] Other 05-28-2023 15:45-0500 Respiratory rate 18 /min Madelyn Raymundo [facility] Other 05-28-2023 15:45-0500 SaO2% (BldA) [Mass fraction] 99 % Madelyn Hammmond [facility] Other 05-28-2023 15:45-0500 Systolic blood pressure 156 mm[Hg] Madelyn Hammmond [facility] Other 02-08-2023 15:00-0400 Body height 177.8 cm Earle Gore [facility] Other 02-08-2023 15:00-0400 Body mass index (BMI) [Ratio] 32.91 kg/m2 Earle Gore [facility] Other 02-08-2023 15:00-0400 Body weight 104.06 kg Earle Gore [facility] Other 02-08-2023 15:00-0400 SaO2% (BldA) [Mass fraction] 100 % Earle Gore [facility] Other Encounters Encounter Date Encounter Type Care Provider Facility Start: 05-28-2023 End: 05-28-2023 ambulatory Madelyn Raymundo [facility] Start: 05-28-2023 Office outpatient vi sit 15 minutes Madelyn Raymundo [facility] Start: 05-24-2023 End: 05-25-2023 ambulatory Christina Martinez MD Facility:[facility] Start: 02-08-2023 End: 02-08-2023 ambulatory Earle Richterky [facility] Other Start: 02-08-2023 Office consultation new/estab patient 60 min Earle Gore [facility] Start: 01-01-2023 End: 01-01-2023 ambulatory Amado Valladares Facility:[facility] Start: 01-01-2023 End: 01-01-2023 ambulatory MACHINE WORKER-C Madelyn Mims Work Phone: [facility] Work Phone: Start: 01-01-2023 End: 01-01-2023 Patient encounter procedure MACHINE WORKER-C Madelyn iMms Work Phone: [facility] [address] Work Phone: Start: 10-30-2022 End: 10-31-2022 ambulatory MADELYN MIMS Facility:[facility] Start: 10-28-2022 End: 10-29-2022 ambulatory MADELYN MIMS Facility:[facility] Start: 10-17-2022 End: 10-18-2022 ambulatory MADELYN MIMS Facility:[facility] Start: 08-27-2022 End: 09-17-2022 ambulatory MADELYN MIMS Facility:[facility] Start: 10-16-2018 End: 10-16-2018 Emergency department patient visit FLOYD Lisette VILLAFANA [facility] Procedures Date Procedure Procedure Detail Performing Clinician Start: 01-01-2023 XR pre/post mri xray MACHINE WORKER Yessy Mims Work Phone: Start: 01-01-2023 MRI of cervical spin e without contrast MACHINE WORKERAdelaidaC Madelyn Mims Work Phone: Start: 10-16-2018 ED NURSING COMMUNICATION FLOYD DAYAMOSTED Payers Date Payer Category Payer Self-pay 2022 Unknown 1985 Unknown [id number] 2.16.8 [id number] 1987 Unknown [id number] 2.16.84 [id number] 1987 Unknown [id number] 2.16.84 [id number] 1987 Unknown [id number] 2.16.84 [id number] 1987 Unknown [id number] 2.16.84 [id number] 1987 Unknown [id number] 2.16. [id number] 1959 Unknown [id number] Unknown [id number] 2.16.8 [id number] Social History Date Type Detail Facility Tobacco smoking status NHIS Unknown if ever smoked [facility] Work Phone: Start: 1985 Sex Assigned At Male F [facility] Sex Assigned At Sex Assigned At Bir [facility] [employer] Other Evaluation note 05-28-2023 Note Date & Type Note Facility 05-28-2023 Evaluation note Encounter Date Diagnosis Assessment Notes May, Contact with and (suspected) exposure to covid-19 (ICD-10 - Z20.822) May, Acute sinusitis, recurrence not specified, unspecified location (ICD-10 - J01.90) Drink plenty fluids, get plenty of rest. Continue home medications as prescribed. Take the amoxicillin with clavulanate as prescribed until gone. Use the fluticasone nasal spray until your symptoms improve. Take Tylenol or Motrin as needed for aches pains or fevers. Follow-up with your family physician for reevaluation of your elevated blood pressure and also if no improvement in 2 to 3 days May, Elevated blood pressure reading with diagnosis of hypertension (ICD-10 - I10) [facility] Other Evaluation note 02-08-2023 Note Date & Type Note Facility 02-08-2023 Evaluation note Encounter Date Diagnosis Assessment Notes Jan, Cervical radiculopathy (ICD-10 - M54.12) 37 year old male presents with complaints of neck pain with radiation into the anterior aspect of the left shoulder as well as tingling in the left bicep. He states pain started approximately 9 months ago, however more constant since August of this year. During his episodes of pain he experiences confusion, dizziness and blurry vision. Prior to examining the patient I reviewed recent progress notes from the referring provider, Dr. Valladares. I independently reviewed his recent cervical spine MRI which shows mild disc bulging at C6-7 along with facet arthropathy. History, physical examination and available images are consistent with cervical degenerative disc disease and cervical spondylosis. Anatomy of spine discussed in detail with patient in regards to patients condition. Clinically this patients symptoms do not match his imaging. I do not recommend interventional treatment options for him. I would recommend he continue to follow with neurology. Jan, Chronic pain (ICD-10 - G89.29) I recommend he continue with neurology. Jan, Cervical spondylosis (ICD-10 - M47.812) Stable. No interventional options at this time. Jan, DDD (degenerative disc disease), cervical (ICD-10 - M50.30) Follow up with neurology. Please evaluate for other conditions such as TIA or atypical migraines due to intermittent tingling and numbness in his face as well as vertigo and dizziness. Jan, Other Medical decision making shows a new problem to me with further workup planned or suggested with the potential for extensive treatment options that were considered with the most applicable given this patient's situation as noted above. Treatment options considered include a combination of physical therapy approaches, pharmacologic management, and interventional procedures. Those most applicable to the patient were discussed at this time. Risk of complications and/or morbidity and mortality is high given that acute and chronic pain poses a threat to life and bodily function if undertreated, poorly treated or with failure to maintain adequate treatment and timely followup. Given the serious and fluctuating nature of pain with extensive consideration for whenever pain changes, there always remains the possibility of prolonged functional impairment requiring constant patient reassessment and high-level medical decision making. The amount and complexity of data reviewed is high given that patient labs, radiology reports, and other test were obtained, reviewed and summarized as applicable from the physician portal and/or outside medical records. Pertinent positive and negative findings were considered in medical decision-making. [facility] Other Evaluation note Note Date & Type Note Facility Evaluation note No assessment information [facility] Work Phone: History general Narrative - Reported Note Date & Type Note Facility History general Narrative - Reported Type Medical History GERD [facility] Other Summary Purpose Family History No Family History Records FoundNo Family History Records FoundNo Family History Records FoundNo Family History Records FoundNo Family History Records Found Advance Directives No Advanced Directives Records Found Advance Directive Response Recorded Date/ Time Advance Directives No December 18 4:11pm Chief Complaint and Reason for Visit Chief Complaint R29.898 Additional Source Comments (unrecognized sect ion and content) No Status Records FoundNo Status Records FoundNo Status Records FoundNo Status Records FoundNo Status Records Found INFORMATION SOURCE (unrecogn ized section and content) DATE CREATED AUTHOR [facility] DATE CREATED AUTHOR AUTHOR'S ORGANIZ ATION [facility]/03/2021 [facility] DATE CREATED AUTHOR AUTHOR'S ORGANIZ ATION 11/02/[address] [facility] DATE CREATED AUTHOR AUTHOR'S ORGANIZ ATION 01/07/2023 [facility] DATE CREATED AUTHOR AUTHOR'S ORGANIZ ATION 06/04/2023 [facility] Care Teams (unrecognized sec tion and content) Team Status: Active Member Role Status Dates DONNY Ewing Primary Care Provider Active Team Status: Inactive Member Role Status Dates Amado Valladares , Attending Provider Active Madelyn Mims NP-C Primary Care Provider Active Goals (unrecognized section and content) Goals may be documented in a n alternate sectionNo InformationNo Information REASON FOR VISIT (unrecogniz ed section and content) Referred by Dr. Valladares for cervical painSINUS CONGESTION, EARACHE, COUGH, FEVER FOR RECORDS PERTAINING TO PATIENTS WHO ARE OR HAVE BEEN ENROLLED IN A CHEMICAL DEPENDENCY/SUBSTANCEABUSE PROGRAM, SOME INFORMATION MAY BE OMITTED. This clinical summary was aggregated from multiple sources. Caution should be exercised in using it in the provision of clinical care. This summary normalizes information from multiple sources, and as a consequence, information in this document may materially change the coding, format and clinical context of patient data. In addition, data may be omitted in some cases. CLINICAL DECISIONS SHOULD BE BASED ON THE PRIMARY CLINICAL RECORDS. [employer] provides no warranty or guarantee of the accuracy or completeness of information in this document.
[2023-06-28 07:41] VITALS: BP 140/94; PULSE 80; RESP 16; TEMP 37.4; O2SAT 97
[2023-06-28] MEDS: LIDOCAINE HCL 2% PF 100 MG/5 ML VIAL INJ (08:15)
[2023-06-28] MEDS: BUPIVACAINE HCL 0.25% PF 25 MG/10 ML VIAL INJ (08:15)
[2023-06-28] MEDS: IOHEXOL 240 MG/ML - 10 ML VIAL INJ (08:15)
[2023-06-28] MEDS: DEXAMETHASONE SOD PHOS 10 MG/ML VIAL INJ (08:15)
[2023-06-28 08:23] VITALS: BP 128/87; PULSE 70; RESP 16; O2SAT 96
[2023-06-28 08:26] VITALS: BP 129/88; PULSE 68; RESP 18; O2SAT 96
--- NOTE | 2023-06-28 08:30 | P.ON_ITS ---
Date of procedure: 06/28/23 Pre-op diagnosis: Cervical radiculopathy Post-op diagnosis: same as pre-op Procedure: Procedure: Left C5-6, 6-7 transforaminal epidural steroid injection Medications: Bupivacaine 0.25% 2cc, dexamethasone 10mg The patient was seen and examined in the preoperative holding area.? Informed consent was obtained and placed on the chart.? Patient was brought to the medical procedure unit and placed in the prone position where a timeout was completed verifying the correct patient, procedure site, position, and planned special equipment using sterile aseptic technique.? Under direct fluoroscopic visualization a 25-gauge Quincke tipped spinal needle was advanced to the designated neural foramen where contrast dye was injected to show adequate spread.? The needle was inserted at level left C5-6. There was no evidence of vascular or adverse uptake.? Epidural spread was appreciated.? The above- mentioned injectate was then placed in a 1.5 mL aliquot preceded by negative aspiration.? The needle was removed. The needle was inserted and the procedure repeated at level left C6-7.? The surgery site was covered.? Patient was taken to the postprocedural recovery area and monitored for an appropriate length of time before found suitable for discharge in the accompaniment of a responsible adult. Anesthesia: Local Surgeon: Christina Martinez Pathology: none sent Condition: stable Disposition: no change
== END 2023-06-28 08:32 | disposition home or self-care (01) ==
PROVIDERS: PCP Nurse Practitioner Family; Visit Provider Anesthesiology
DX: M54.12 Radiculopathy, cervical region (principal)
CPT/HCPCS: 64479; 64480; J0665; J1100; Q9966

== ENCOUNTER 2023-07-12 06:35 | Day surgery (SDC) | payer OTHER, SELFPAY ==
--- OUTSIDE RECORDS SUMMARY | 2023-07-12 06:38 | XMS_ITS | CCD ---
Author Name Unknown Address [address] [place] [address] Organization [facility] Care Team Providers Care Treasury Specialist Name Role Phone FLOYD VILLAFANA Primary Care [...] Care Unavailable DO Amado Valladares Attending Provider [phone] DONNY Mims Primary Care Provider Earle Gore [...] (COVID-19) RNA PEDRO+probe Ql (Unsp spec) Negative [facility] Other COVID + FLU Quick Testing Negative [facility] Other XR pre/post mri xrayon 01-01 XR pre/post mri xray [facility] Main [facility] [address] [place] [address] MRI Report Signed Patient: Rosaline Li MR#: [id number] 30 : 1985 Acct:[id number] Age/Sex: 37 / M ADM Date: 01/01/23 Loc: [facility] Room: Type: [facility] Attending Dr: Amado Valladares DO Copies to: Amado Valladares DO Ordering Provider: Amado Valladares DO Date of Service: 01/01/23 MR/MR cervical spine wo con: [id number] ([id number]) XR/XR pre/post mri xray: post MRI cervical [...] Bean Hill M.D.01/01/2023 3:26 PM Dictation Location: [place] [address] Transcribed By: [facility] 01/01/23 1526 Dictated By: Bean Hill II, MD 01/01/23 1523 Signed By: 01/01/23 1526 [facility] CTA NECK WO W CONon 10-31-19 CTA [...] MOE PARNELL Date: 2022-10-30 09:17 Normal [facility] MRI BRAIN WO W CONon 023 MRI [...] MOE PARNELL Date: 2022-10-28 09:35 Normal [facility] XR CSPINE 2_3 VIEWSon 2022 XR CSPINE [...] NAKUL HAYES Date: 2022-10-28 07:46 Normal [facility] XR FOREIGN BODY EYEon 2022 XR FOREIGN BODY EYE EXAMINATION: XR FOREIGN BODY EYE HISTORY: Foreign body in eye COMPARISON: No relevant comparison available. FINDINGS: ORBITS: Negative for a metallic foreign body. OTHER: Negative. IMPRESSION: No metallic foreign body in the orbits Electronically authenticated by: NAKUL HAYES Date: 2022-10-28 07:43 Normal [facility] JULIAN DIRECTon 10-19-2022 JULIAN Direct Negative Normal Negative [facility] Comment on above: Performed By: #### A NAD ####[facility] [id number] [place] [address]Dr. Carl Gama ANTISTREPTOLYSIN O AB (ASO)o n 10-18-2022 Antistreptolysin O Ab 86.9 IU/mL Normal 0.0-200.0 [facility] Comment on above: Performed By: #### A SOAB #### [facility] [address] [place] [address] [address] Carl Gama RHEUMATOID FACTORon 10-19-19 RA Latex Turbid. <10.0 Normal <14.[address] [facility] Comment on above: Performed By: #### R F ####[facility] [id number] [place] [address]Dr. Carl Gama CBC AUTO DIFFon 10-17-2022 BASO # 0.0 103/ul Normal 0.0-0.1 [facility] Comment on above: Performed By: #### C BC #### [facility] [address] [place] [address] Dr. Carl Gama Basophils/100 WBC (Bld) 0.6 % Normal 0.2-2.0 [facility] Comment on above: Performed By: #### C BC #### [facility] [address] [place] [address] Dr. Carl Gama EO # 0.1 103/ul Normal 0.0-0.7 [facility] Comment on above: Performed By: #### C BC #### [facility] [address] [place] [address] Dr. Carl Gama Eosinophils/100 WBC (Bld) 2.1 % Normal 0.9-7.0 [facility] Comment on above: Performed By: #### C BC #### [facility] [address] [place] [address] Dr. Carl Gama Erythrocyte distribution width (RBC) [Ratio] 13.2 % Normal 11.0-15.0 [facility] Comment on above: Performed By: #### C BC #### [facility] [address] [place] [address] Dr. Carl Gama Hematocrit (Bld) [Volume fraction] 44.9 % Normal 42.0-54.0 [facility] Comment on above: Performed By: #### C BC #### [facility] [address] [place] [address] Dr. Carl Gama Hemoglobin (Bld) [Mass/Vol] 15.2 g/dL Normal 14.0-18.0 [facility] Comment on above: Performed By: #### C BC #### [facility] [address] [place] [address] Dr. Carl Gama IG # 0.02 10e3/ul Normal 0.00-0.03 [facility] Comment on above: Performed By: #### C BC #### [facility] [address] [place] [address] Dr. Carl Gama IG % 0.4 % Normal 0.0-0.5 [facility] Comment on above: Performed By: #### C BC #### [facility] [address] [place] [address] Dr. Carl Gama LYMPH # 1.5 103/ul Normal 1.2-3.8 [facility] Comment on above: Performed By: #### C BC #### [facility] [address] [place] [address] Dr. Carl Gama Lymphocytes/100 WBC (Bld) 32.2 % Normal 20.5-60.0 [facility] Comment on above: Performed By: #### C BC #### [facility] [address] [place] [address] Dr. Carl Gama MANUAL DIFF REQ NO Normal [facility] Comment on above: Performed By: #### C BC #### [facility] [address] [place] [address] Dr. Carl Gama MCH (RBC) [Entitic mass] 28.4 pg Normal 25.9-34.0 [facility] Comment on above: Performed By: #### C BC #### [facility] [address] [place] [address] Dr. Carl Gama MCHC (RBC) [Mass/Vol] 33.9 g/dL Normal 29.9-35.2 [facility] Comment on above: Performed By: #### C BC #### [facility] [address] [address] [address] Carl Gama MCV (RBC) [Entitic vol] 83.9 fL Normal 80.0-94.0 [facility] Comment on above: Performed By: #### C BC #### [facility] [address] [place] [address] [address] Carl Gama MONO # 0.4 103/ul Normal 0.3-0.8 [facility] Comment on above: Performed By: #### C BC #### [facility] [address] [place] [address] Dr. Carl Gama Monocytes/100 WBC (Bld) 9.0 % Normal 1.7-12.0 [facility] Comment on above: Performed By: #### C BC #### [facility] [address] [place] [address] Dr. Carl Gama NEUT # 2.7 103/ul Normal 1.4-6.5 [facility] Comment on above: Performed By: #### C BC #### [facility] [address] [place] [address] Dr. Carl Gama Neutrophils/100 WBC (Bld) 55.7 % Normal 43.0-75.0 [facility] Comment on above: Performed By: #### C BC #### [facility] [address] [address] [address] Carl Gama Platelet mean volume (Bld) [Entitic vol] 8.6 fL Critically low 9.5-13.5 [facility] Comment on above: Performed By: #### C BC #### [facility] [address] [place] [address] Dr. Carl Gama PLT 321 103/ul Normal 150-450 [facility] Comment on above: Performed By: #### C BC #### [facility] [address] [place] [address] Dr. Carl Gama RBC 5.35 106/ul Normal 4.70-6.10 [facility] Comment on above: Performed By: #### C BC #### [facility] [address] [address] [address] Carl Gama WBC 4.8 103/ul Normal 4.0-11.0 [facility] Comment on above: Performed By: #### C BC #### [facility] [address] [place] [address] Dr. Carl Gama CRPon 10-17-2022 CRP [Mass/Vol] mg/L Normal <=1.0 [facility] Comment on above: Performed By: #### U TIBURCIO, CMP, CRP #### [facility] [address] [place] [address] Dr. Carl Gama GLYCOHEMOGLOBIN A1Con 2022 ADA RECOMMENDATION SEE BELOW Normal [facility] Comment on above: Result Comment: ADA RECOMMENDED LIMIT 4.0 - 6.0 ADA THERAPEUTIC TARGET < 7.0 ACTION SUGGESTED > 7.0 Performed By: #### A 1C #### [facility] [address] [place] [address] Dr. Carl Gama HbA1c (Bld) [Mass fraction] 5.7 % Normal 4.5-6.2 [facility] Comment on above: Performed By: #### A 1C #### [facility] [address] [place] [address] Dr. Carl Gama PROF 14(COMP METB)on 023 Albumin [Mass/Vol] 3.8 g/dL Normal 3.4-5.0 [facility] Comment on above: Performed By: #### U TIBURCIO, CMP, CRP #### [facility] [address] [place] [address] Dr. Carl Gama Albumin/Globulin [Mass ratio] 1.1 {ratio} Normal [facility] Comment on above: Performed By: #### U TIBURCIO, CMP, CRP #### [facility] [address] [place] [address] Dr. Carl Gama ALP [Catalytic activity/Vol] 58 U/L Normal 46-116 [facility] Comment on above: Performed By: #### U TIBURCIO, CMP, CRP #### [facility] [address] [address] [address] Carl Gama ALT [Catalytic activity/Vol] 72 U/L Critically high 16-63 [facility] Comment on above: Performed By: #### U TIBURCIO, CMP, CRP #### [facility] [address] [address] [address] Carl Gama Anion gap [Moles/Vol] 13.2 mmol/L Normal [facility] Comment on above: Performed By: #### U TIBURCIO, CMP, CRP #### [facility] [address] [address] [address] Carl Gama AST [Catalytic activity/Vol] 30 U/L Normal 15-37 [facility] Comment on above: Performed By: #### U TIBURCIO, CMP, CRP #### [facility] [address] [address] [address] Carl Gama Bilirubin [Mass/Vol] 0.6 mg/dL Normal 0.2-1.0 [facility] Comment on above: Performed By: #### U TIBURCIO, CMP, CRP #### [facility] [address] [address] [address] Carl Gama Calcium [Mass/Vol] 8.5 mg/dL Normal 8.5-10.1 [facility] Comment on above: Performed By: #### U TIBURCIO, CMP, CRP #### [facility] [address] [address] [address] Carl Gama Chloride [Moles/Vol] 107 mmol/L Normal 98-107 [facility] Comment on above: Performed By: #### U TIBURCIO, CMP, CRP #### [facility] [address] [address] [address] Carl Gama CO2 [Moles/Vol] 25.7 mmol/L Normal 21.0-32.0 [facility] Comment on above: Performed By: #### U TIBURCIO, CMP, CRP #### [facility] [address] [address] [address] Carl Gama Creatinine [Mass/Vol] 0.95 mg/dL Normal 0.70-1.30 [facility] Comment on above: Performed By: #### U TIBURCIO, CMP, CRP #### [facility] [address] [address] [address] Carl Gama EGFR-AF SURINAMESE >60 Normal >=60 [facility] Comment on above: Performed By: #### U TIBURCIO, CMP, CRP #### [facility] [address] [address] [address] Carl Gama EGFR-NON AF SURINAMESE >60 Normal >=60 [facility] Comment on above: Performed By: #### U TIBURCIO, CMP, CRP #### [facility] [address] [address] [address] Carl Gama Globulin (S) [Mass/Vol] 3.4 g/dL Normal [facility] Comment on above: Performed By: #### U TIBURCIO, CMP, CRP #### [facility] [address] [place] [address] Dr. Carl Gama Glucose [Mass/Vol] 117 mg/dL Normal [facility] Comment on above: Performed By: #### U TIBURCIO, CMP, CRP #### [facility] [address] [address] [address] Carl Gama Performed By: #### A 1C #### [facility] [address] [address] [address] Carl Gama Potassium [Moles/Vol] 3.9 mmol/L Normal 3.5-5.1 [facility] Comment on above: Performed By: #### U TIBURCIO, CMP, CRP #### [facility] [address] [place] [address] Dr. Carl Gama Protein [Mass/Vol] 7.2 g/dL Normal 6.4-8.2 [facility] Comment on above: Performed By: #### U TIBURCIO, CMP, CRP #### [facility] [address] [address] [address] Carl Gama Sodium [Moles/Vol] 142 mmol/L Normal 136-145 [facility] Comment on above: Performed By: #### U TIBURCIO, CMP, CRP #### [facility] [address] [address] [address] Carl Gama Urea nitrogen [Mass/Vol] 7.0 mg/dL Normal 7.0-18.0 [facility] Comment on above: Performed By: #### U TIBURCIO, CMP, CRP #### [facility] [address] [address] [address] Carl Gama Urea nitrogen/Creatinine [Mass ratio] 7.4 mg/mg Normal [facility] Comment on above: Performed By: #### U TIBURCIO, CMP, CRP #### [facility] [address] [address] [address] Carl Gama URIC ACID SERUMon 10-17-2022 Urate [Mass/Vol] 5.2 mg/dL Normal 3.5-7.2 [facility] Comment on above: Performed By: #### U TIBURCIO, CMP, CRP #### [facility] [address] [address] [address] Carl Gama Semen An/Cnton 02-03-2021 Crista/Transport Prob No Problems Normal [facility] Comment on above: Performed By: #### 1 [id number], [id number] #### [facility] [address] [place] [address] Collect. Meth Masturbation Normal [facility] Comment on above: Performed By: #### 1 [id number], [id number] #### [facility] [address] [place] [address] Days Abstained 3 day(s) Normal 2-5 [facility] Comment on above: Performed By: #### 1 [id number], [id number] #### [facility] [address] [place] [address] Graded Motility 2 Abnormal [facility] Comment on above: Result Comment: 0 - Non-Motile 1 - Very sluggis, no forward progression 2 - Forward progression present, but very slow 3 - Good forward progression with tail movements visualized 4 - Rapid forward progression with tail movements difficult to visualize Performed By: #### 1 [id number], [id number] #### [facility] [address] [place] [address] Motile Sperm 13 % Low 60-100 [facility] Comment on above: Result Comment: A [...] or Non-motile sperm. Performed By: #### 1 [id number], [id number] #### [facility] [address] [place] [address] Semen Viscosity 810 minute(s) High <=29 [facility] Comment on above: Performed By: #### 1 [id number], [id number] #### [facility] [address] [place] [address] Spec. Container Steril Container Normal [facility] Comment on above: Performed By: #### 1 [id number], [id number] #### [facility] [address] [place] [address] Spec. Temp 23 DegC Normal 20-37 [facility] Comment on above: Performed By: #### 1 [id number], [id number] #### [facility] [address] [place] [address] Sperm Count 24 Million/mL Normal >=20 [facility] Comment on above: Result Comment: A Co ncentration Technique is used to evaluate all sperm counts <20 million. Performed By: #### 1 [id number], [id number] #### [facility] [address] [id number] Sperm pH 8.0 No Units Normal 7.2-8.9 [facility] Comment on above: Performed By: #### 1 [id number], [id number] #### [facility] [address] [place] [address] Volume Semen 3.3 mL Normal 0.7-6.5 [facility] Comment on above: Performed By: #### 1 [id number], [id number] #### [facility] [address] [place] [address] WBC Semen 1 - 3 Invalid Interpretation Code [facility] Comment on above: Performed By: #### 1 [id number], [id number] #### [facility] [address] [place] [address] Sperm Morphon 02-03-2021 Sperm Morph <20% abnormal sperms identified. Invalid Interpretation Code [facility] Comment on above: Order Comment: Order Added by Discern Expert. Performed By: #### 1 [id number], [id number] #### [facility] [address] [place] [address] Coding Summary.on 01-31-2021 Coding Summary. CD:[id number] GQw7iHx+PGhlYWQ+PE1 NQVRhC04jsEAwdG1XP3 rHEA0QTPEPXWWETC6GD F9ctGA7HFbxW4ZwxhIe WksseITqAS86JCo3EFB 9oMdrLQjexA7vdERyY9 v3HeUsZI95jA02QOdaV XOgEhV6XaKmqaejxMEf O8jaSdZluAVjYbf+PHR hYmxlIHdpZHRoPScxMD IyAlXzzPpfWZ3lZs6cJ GVyLWNvbGxhcHNlOiBj m0xgZFQdKHfjXK0jsFo hO2ZyzTK2WOJgy3r2Tf 48dHI+PYApDQL4kYnyA Peir772VvVcn9mnLWW8 vCPwSKotAHT6N50gp0C 3XHDtYROvTPJ7sYG8rF 5mnWmsnpnzB2SrtUUoF bM2PWG2qHOasQ8vkXyj ejpjfG1cZny+J79GPT3 AJJPIEV0TXin6F2TzRr wvdHI+HH53RVQuIO99i NVruFPjq2fkqQo4OgPb VFLcOTB4sRtxQXstz8T sTRDuE87nbAPpe2N7UQ BneCcooOPcVbEmdBQ2k S2aDHplmtqiw0dgscrc Lnyln2jduo45tR80I26 hAGhmSWYnGRN1EVTwYI RboKzpgw5zcF1aMh5+I Sjbz8hqp6omqCi2FwKw TFMqvxSriHeuDMJ9z9A zUe28C4FtoAvnu9UdBq c7oi38kCVat0D5cLA4E BtnGSVnjS2bDPqbJwP4 ABUrIyLifZ40uSDzOVq zCl6esJzwkDxvNP5oXB NfqftjUDFooT7vFEDfz OGqtQpgBK4sJIHuvecr i327JeCvFYF5YYSggAH uC0IxqU7bXhKhOPLnCI JhL0YrqCQjTJafJ348N QpbCsQ4PCFpirQrQ2By HGBwpXrfXnA3j9H2Kv6 Nr5WogpulSIA8WIsuJH Y1JsCpPyGeTxF2G4ZuJ pc8APHocTsgOM0cF6Ic TTUokgqtycteyFQ8PCH oSGIphT15iAXpUEjuVq 8xo0P8a520NCPgDFZoh K54Ya5vlZqrFRZmmMGR rM7kbnghy5fnvlrjDqY mBPJiWNz0HCb9OFGavF gkHoGhZCS3ZaY8JLC5r NWfoG8kbPslmpokaY4a Oyc+E14ylD7vNXF1IAO 4zasgIFJmqkXcMA34EA 36S9OwXtlzcKIsiGK+P NSmmtBixPlbWB6hNxNc k1ocz0PfJJvrZ1LtOEF zFJxtFot2NYBuVNA7wP J4eH8tLPYlSTnee0U4a OJ9D3FgdhNsqp1ro9ky JGLiHEetS31vqDHyn6P 9HCSzzJY9OZRgcTbiRf QbqE75Xpe+PGNvbGdyb 8XmNbjum4owj2iajUe1 IjMwJSIgdmFsaWduPSJ 8q3PwPh20V83aJAlfXW RoPSIxNSUiIHZhbGlnb y5cuA3cJe9+PGNvbCB3 pBU4hO6xPBVaNsM5HBe dO683BqHzxXMeEvevg6 sdv2ugvXm5OfJvCXZlu hLzkWcfJFY7h6AhWa30 X29sSQgqOSFsQICtCSZ gOMHhhNwskm4ebC9qJn 8+PM8gc5nhhd69lF19i HI+HMTeQRA9rLjdRHdl AXIffI7mPHihEaK6BZS sPiDjmB25eHZdQBfkNn 1jgEpokTkqKI0cCBWgu yyrs128VeWdp1uyIAAe hRBvQLjzHTP2V17uq9I 1XPPfZIZfQSV1aMI7uK 1hbGlnbjogbGVmdDsgd pQaiRzdWRzzUDbzR974 IHRvcDsnPlBhdGllbnQ dYjPpPRe9C6JtNto1FY ZeyPptAF3wkLFbBDzmN g6shGlhqOtbSK2jPZRa qrxto369DbCbl3rkCQY upUBiDBuaLPF7H79js2 S2DRUbFODmNFC8lTC6x A3psErsmcpjqWQffHna hvEokJysEYjcPMphX96 6IHRvcDsnPkJpcnRoIE WxiKZ2VE29TB52mKZgr 0M7cMH8S9TzSMXuseni ywyvtMA9YTHkRBSdfQ7 3Km4uyOevRk3wPEZmYF J3PSAdoRXiI3YffR1xL dDcYVOrNKZhD0NdkLTj NUdcF383MPogBrZ3HCQ bkhChD3HcBOXcoSgcXy B0y1Z4Am9SV1A4CL58U L41lIXsz6I7mZY5B1Nq DXVhnuzdqctvmAL6YCI pBYBcoQ09Yo5scHnwWz 7vIGJyRZJ8LBOazJRvJ 6ZrbT8qQzVkDSJbCBMr N4NgvDOoWZwwU739TCv eAcI7GIOzzaAuA4WaFM IjqHmuNqA1b7H9Do6LG Ud3HF66MF85gFHht2M9 cMS8E4TeUWCjbpswgji emQP1EZCmULRgmF58Rn 1zaQdrEu5tRLXqVQS5R JCwvHPtE2BqoB5hHlDx KUAuVTKgA3KegCDtQFq hL970DWhwGcQ1ABSedg XhK2CoNBHtnZjyQgX8r 8U3Ra0SQIHhTO02ZPJ9 eFH4JL70QI71F9HyMsm vdGFibGU+PHRhYmxlIH dpZHRoPScxMDAlJyBzd UzvFG5nXq2pPAVyKJQv mJvrrGSqNpFtz6nrXEC kXMmlDB9vhIicR8BgwW V8YWLes7k2Zh51R84yV 3JvdXA+XFEtuXJ9fGU9 jN1rXeGbRvH9RNpkC58 4SwDnfZDdWahgp3oow1 uavLa6MjH3JNVuorRcx IyaJCN9t2WnGp54X93r IHdpZHRoPSIxNSUiIHZ tyFyzyi7ozY7bFa8+PG MyrRT9tAM2bK2tXeRjK uD9GTrbE650OfDynCPa Euwzi3cas3dgoMy6KsR oHZBvgiXwoQqoCEH0v8 VyEa28Q6FtkPymk0VxK qq5li09vYKir1X2oPI1 C3UaMAWvnyskhXXnpGs cHP7xAZLokrtqYOQafB 0eZFEkR8o5MdDiMbM1K KpkJ5BxhgA3DJYvjTXj ORiwXEL0Y64qd8H0NDQ bBYZtNGB3oVM9pT9saC lnbjogbGVmdDsgdmVyd BwiKAbgZGahO030BDRp eRspEUFaxG8kMUAmsFT ehEkvQH3gDMZnxlteNs xZS8IJYQreGFpTVRT0R 9JwAlt2ZCGdoEknFA3r cXWrXTyrIz0abPjcpJx tIH5cRJVehnqpXWAffX 8oIVBqpQEpzOyiJJ9kM AGopxsoj137OsCrASV8 LBUtlMUpZ5YpoC0pVuB tLKOhFOMdC6TxbSNvUI qnS980MIeyDjL1GQTsr tQwN3LpVQIpiNslDfN3 m1E1Zc9lCr3zZz8jGTh 5LW75TL83zLDkv1P5rE U9W9BsCCTymdpteyogz JU1KZEmROLtnU92sZFu QJqaSu2ee1N4h116XKI jAKJwqQ71Nc5ekFklTN MbrTXTfK7pemove2knt axmUpNbKHYgWWb6QTc9 NEIxcKuqPtCfCLS0TeU 2NSY1jVWuhM4ioKxtka wuiT8lPtb+MzMgWWVhc iE5D3CaZvk0ZWNmhWsy ZS7kzEBhAYatYm7hbZg cdQyrYT1zMZEbwtuySB BhzN8lPCYsnNObkMqzJ L0vDPBqgvauc104ZvFr ETS6MHGyvUSpR1JuzU1 nMuPiIRXhYJVcR4YaaT JtLMhmM671EXoxPeE5D BWmnsDzQ1FfUXXhnMrq InU7v5I3Bv0GCDebID9 2UM85nTCib5Q8rAZ2M9 OtKOPuxfyhxadogQL2Y ZIyRPMcaU54dRWcFIxk Vn0wh3P4m726ZDPgJZG ldO00Se1isLkkEAXnxF CFwX4fylbfx8ihxwhbU sNzUIMyKOi5AMe1QCRn jCyxAlFvFHZ6TcD6JFV 7eMCwkA1pcAjwqlyrmR 9wOyc+Y3H6zAH5wYNrf DwvdGQ+WU19bd87I6Qu KyboGrt9LTMkAWA6eNJ 1rM6uZWGaTDkdj6N0sX E4T2XvrjZjfc8bz5gaE GEgBHbxC57wkQWox0B7 CRHanKR8MRBhqDkzFlG qdI21Zte+PGNvbGdyb3 BcZhdzd3nkt0vxtJp1Y jMwJSIgdmFsaWduPSJ0 o4LgGa25W81iQEgkZEH oPSIzMCUiIHZhbGlnbj 2ltE1hRz0+PGGblFU8j FT0xK8pEtUwPhL8TIeb X037CbOyoEZkTlmes0s je4lkvCx3LgBeIBBrzd SpyVfnKGC1s3HqSv73P 7PreHkzc1ZoHrz2fz89 nYIhb1G1fHF0I9TkBPG ebjgxgMJbiUgbUI0bKZ HskyqzHTJouK6uJSFlC 7a5UmJiErY1NJtoN5Ml lyK6YXSuwCIvWEJkvWQ MqC5eqclfc7eujivcHe FkZIUkVRg7IEp2XRXei GaaVcNdHPY7PvW5TWB1 tJUsrU9trIcmntberN2 wOyc+WIl2d3rmyWHeQB 9nwMP7HR82QK07bAMud 1N1eSC7S3XkBQJzfjua djzffZG6FUBxIXWwvG0 4Pt8puZdiFu2qEDTiGN W1DFCvrSTdE9MehE6yN eIsOZHlVCFtV4YylFLa PQntR466IHxiYmS6SUW cwtKgQ1AlYZGieJryGx N9z8Y7Wc8PKF03XG58Q M29lOFch3U9oNV6D4Ez FCBetzfoojpjrXG7EXN uZNXqaP04Se6qoAczCk 3zTEDxAME5VWQkoOXzU 9HueS5zLwCcPZEsDZJr Z9QhiZJsNNdlP346KGn dMyL8PMSdubRiS8MeDG MrqCokRkW3n1A8Ma2JP c62NO70UQ19cNFhy9E3 iFY5Y2ZgQJDzadydtnw vqYE2ATXsKNPrkO34Dv 5phHioHr4gOCSnYEN8I QCbxMZsP4DqsN3eCyBy GDSsCDSyJ5VjvXExOUy lC312DJasSlP5JRCndr EfS0LwKIKdlXhmXyW2o 4T1Wh2YFIebqjw5X0Vj PjwvdHI+ZF67ASOvYM7 6lRElyTMkj5vthBw6Pa YeZHJhTRK9fQdjRLols 4VfABZbM63mlVQev8N4 IGNv (more content not included)... Normal [facility] FSH and LHon 01-31-2021 Follitropin Qn 6.4 m[IU]/mL Invalid Interpretation Code 1.5-12.4 [facility] Comment on above: Result Comment: Perf ormed at: [facility] [id number] [place], [place] [id number] PhD Vivian Bass Performed By: #### 1 [id number], [id number], [id number], [id number] #### [facility] [address] [place] [address] Lutropin Qn 10.4 m[IU]/mL High 1.7-8.6 [facility] Comment on above: Performed By: #### 1 [id number], [id number], [id number], [id number] #### [facility] [address] [place] [address] Testosterone F&Ton Testosterone [Mass/Vol] 287 ng/dL Invalid Interpretation Code [id number] [facility] Comment on above: Result Comment: Adul t male reference interval is based on a population of healthy nonobese males (BMI <30) between 19 and 39 years old. katelynn Thompson.al. JCEM 2017,102;9471-2934. PMID: 43546569. Performed By: #### 1 [id number], [id number], [id number], [id number] #### [facility] [address] [place] [address] Testosterone Free [Mass/Vol] 7.1 pg/mL Low 8.7-25.1 [facility] Comment on above: Result Comment: Perf ormed at: [facility] [address] [id number] PhD Vivian Bass Performed at: [facility] [address] [id number] MD Josef Almazan Performed By: #### 1 [id number], [id number], [id number], [id number] #### [facility] [address] [place] [address] Consent for Treatmenton Consent for Treatment [id number]#[id number]:127 Normal [facility] Physician Orderon 01-27-2021 Physician Order [id number]#1.00CD:127 Normal [facility] Prolactinon 01-27-2021 Prolactin [Mass/Vol] 9.62 ng/mL Normal 2.64-13.13 [facility] Comment on above: Performed By: #### 1 [id number], [id number], [id number], [id number] #### [facility] [address] [place] [address] TSHon 01-27-2021 TSH Qn 2.00 m[IU]/L Normal 0.34-5.60 [facility] Comment on above: Performed By: #### 1 [id number], [id number], [id number], [id number] #### [facility] [address] [place] [address] [place] [address] Coding Summary.on 11-11-2020 Coding Summary. CD:[id number] XXn8lLa+PGhlYWQ+PE1 SDDWeF92bbWMvjA1GR4 eBXJ8XCHCNXVLMBJ3BS P2arLF1DQllP2JuurFq MojabWGpQC51MAe3QIX 1yMwkAIgumQ0bnYZaY0 q1AfRnCT29bU28MBfdN CWiItK7FpVuggrhhJFk C4vbOzZgjITeFiu+PHR hYmxlIHdpZHRoPScxMD XdVrRjmHsbML3mYi7pA GVyLWNvbGxhcHNlOiBj g4taURNzSHyrUD3eqCp sR6NazEJ4KHEgy0w8Vu 48dHI+BJZaLFX0oOzoB Ngng005RvXar9ovWIH0 zNZxQNvlYUM9B34vu9O 1JPPuJIQhKHY4sDA3iD 6noYhsylziS2DxrHRdT hX4CLD3hKKuqQ0iuVtn bifzeH0oHib+N88OEA9 TBFUOFM4CYyl8F3QbNp wvdHI+DY71YXIaSN57y DRqkQUnq4anmOp3YwXb USQuWXZ2oMzfBUbjd6G cFVHcN76hnVAnm7Z9JK MxeCffrNZcEqDpzHI9z E6hKMxsxrlfs2xwrgsk Msxma1ivhu18rO67I08 lXMozRYItYJB9VWHoAN NiyQrysb9viJ3vIt1+I Vstn9mvt4zbdQd1VoYb CBVcqnZqsMicHST3a7H dZd15Y8AebKrfq5RgFc o0xz37aSQkj9U4jIY2H GrsWRHlsS5ySWhvYwM4 HAPhMyDugZ41nOWqPGx hOh0kgBaeuBjsVR2kEY VhpqvpBCSdqC2mRZEct VYglMhbEV3xMOUzltvv z889NtFlREX0YJHcsNF gZ9NjkH3gZoDdGMAwVM VyI2HjiMAgDQdxR175Y GfwYnI5HCDnixKcI0Uj WSRxeJcqOcC9w1R8Wh6 Uj4PtekmqHVR5RIweRX E2MbC4QbOuBzP0T0JuL vt6MELoiZrfOP9tC2Tk TMNkwhkfyqwhoWA9LRT xSYNllG11mCAfQAvgQz 0nc6V7b370ROKkUISbn B61Ig1ufLkdODHjvECJ rX0xajhfz9wlwohgZlL aVAIjNIh3YYr9XTYnwL lwYeCyQHM9JjQ6PMX7y YWuvO9noVpiejzvmL1q Oyc+H80yaN7pCVV9VTP 9ntwkSUVmuqAzQD68XY 07K1QpFzsyyUOqbBU+P UJuybVzpYimRA1zCtYk j8ine3BnSSsbO7XgWHC eZHgeWye7WQVcVCO2mS V5aR7iNXQmUYknn5X1j US3Z3LhufNoqe7za7zn BXPoFGcpK87tzBOej0L 4TTOdxBE6TBQioPykLc KivJ00Jvs+PGNvbGdyb 5ArImkhl2hjo6ykvJx3 IjMwJSIgdmFsaWduPSJ 3p0HxQc72C24sXGnsVA RoPSIxNSUiIHZhbGlnb w2ixZ2yGa5+PGNvbCB3 bAQ6cD3gCTQpJaG1RJp bE877TgLkvGEsQjjgd9 dik0aefWb2DzDuQSRzr lAxeJyfXTC0n5YwMx83 X10vGMxsAZOtUCUsUKZ hKJFhpOcnqg5hbI8lFb 8+KE7fy8jtxd75mS78m HI+MIMrZSJ5gWuwNChu FLYevH1dRCliEvY9BGB mKzHovE26jVFtINnaAj 7kcRkdbNhtCJ4aJCEst mtux743MiZtc4zuEYYp fIRcAYosHYF8S34ws0Z 7QGZrKTAuZIP4uFO0aF 1hbGlnbjogbGVmdDsgd tFtfGtfGHqhHDovO764 IHRvcDsnPlBhdGllbnQ qJyEkSFd7B6QvSfb6IH TdlOabHN9xnMPhNXaqO e0heQzwnTnuMF6cAVQm lwtae758VoZyd8svYYN htBNwXXolKSH1B06fu7 D6CNEbBKMnOOG8xCZ6r V5nxFlgzfrhaKOdiQso rqXecUbxYRyoOEcgU05 6IHRvcDsnPkJpcnRoIE HvhXD6MQ48MJ11pXFtk 3T2aKX9F8SqYPQilpqv rwuojAD1YDPnXIAisL3 2Yp6pvDthEe7oLKZnUD D5HRBujHMtI2OfmD6rS tHaOZDdXTTrI1HrjMGx IAhjZ694URikGpA0BPJ okwDfU3LpRHAfoVxcPg N0s6Q7Km5AE7S9LG33S T58iFQjz9D8wPL4A6Wk SGMuxgnctlcxeJM7RXP fYKUvyS62Lg5mbEdqKq 6zMCYwEBF0YGDivILjT 7PpiR7lLnEgXZIkLPXw D2MgyUMmJEttV351ZSb vJvV8FKMtlcMiI1XrSH SniEhpNvZ2b6P7Xd7QM Ci0JY05WF77rOYyj8Z1 iFJ3S0SmPWPqgkhgrgz qtGN2LFCtFZYlbY61Qc 3gvFzcQd8uJKCfNKD7B CKqvWRgH4FmnR1xBaZa CPWqUBCmC4MkrGCwAKx uL519WJomNaW5OVEpgn MzJ7IoTRIcmRtyGfM2e 3C9Jc2PTHGtGX60XMH2 rUY5RL83QA69U8WsNtu vdGFibGU+PHRhYmxlIH dpZHRoPScxMDAlJyBzd SkjFS6fGs7tJOWlQDPh fJvzxNWjQtWaj4guESA tJHdvTO7pdAqkB6SeiW E6AMRhv7v1Pn76E08pK 3JvdXA+UOGegZQ0iAP8 wK8lTwLfQnB7QZjrH81 7FiVyiUEgTwqvw9jwm9 nwlKd3DkW5ZZAmfdGia KbcEZC4x7FtTv46B20r IHdpZHRoPSIxNSUiIHZ ehTlotd9nhC9rJa3+PG JrnLV6uDB5yD4mWsCtV gP7IQahY915DeMzgQBj Lgcli9yfh1izwIi2NhZ qNYUznoAerQszHLX9o5 BdYq77K6PcdYgon6NaH tp0hy41rMUys9Z9ySO3 V3IrRKLhrpwniOQxnUm tUW3rBCCnoxeoKUIkpQ 3rIIPyQ4d1HgRgKfN3M YmpV7NeobI0STRsnLQl CRfoDVI7W45ns3H7ZJG oKGArWTN0hQH9gW9nwE lnbjogbGVmdDsgdmVyd NmkQQfqDJtaG984NTIh qHxeLWNayY2oLWHolTH ndApkZR2kXIKpybonOy xDX2JBPPqyFRxMEIC7W 2EjEdl5UXOvjLfgSS5y jIFyJCcsTt5gnMwlqBp vQT2qKZEqwwscEZExbV 2pSOZmaVXybPlsRI3yY UXkqyqdx257StAdQQV9 PHFctJBgG1HsvJ6hNcR mJLAfWQRmQ8ChvGLkJU utX117FSqdXeP7QTYnr ySnM6YuCYImvVjcCsE9 x8H0Dj0wEl2mCf3mZWs 5SY75VX44dZBvx1I2fJ V4V3VoUAAjdkfwybfwk FM6OLFnCJCxzI22pBYn VFwsSf0pr6Q2f267JFW aTUCtzL85Dy3tnEqzWF WfxGGCuF2sfqklj0acb izsOrKvPALsPYz0AZa4 ZCEzgNybVvLfULF8QxN 0XUA5fLKszM8ioXhzwm kppS0zUzl+MzMgWWVhc fR0Z2CrYfm9AAQovOcf AV6qbCPbACkiLf5gkEx caApkUJ1gQIQhvocmKP IelI9zDSWsjAIdnGdkT A9kBDNfcuxnj507OfQc AKV8ZGGqxKJgP3YdzP0 xVuMzFFDkWQImE8XetL MfWJqrR921EKibIhK3A YYtuyBdO0EwZMMomUob GqS9c8P2Xi2WALycBS8 6ZW54eNTib7Q6tQN9P7 JoQOQdbhywbqpyfCX4G HLxDNMgpS29uDPnBClv Tr0pv6Y4f984PLTrLWW pqY41Os7ywFcbBFQxmT DXfV5qzkjqj2fbmhbyW jIfXTZxESn0WFu0CYYs aZymZrXjSLT8XjT2OJL 1mCTonW0hjNveboddkH 9wOyc+ZLZfQKVfk7Nwj 9LwBG54BP38D5XbPpas dGFibGU+PHRhYmxlIHd pZHRoPScxMDAlJyBzdH ruPA3kZn1dZMFgKNIus TribQIxCnXzg5boBQLk VKdmZP0dqXobF9TbqYN 1LQDxd7c3Jx18K14kQ6 JvdXA+AYDpbQX7iTH5m M6nPkIyZxT4DHwiE516 DjZckQPmJuofi7ccz9b nlPw2SqWkDFTxahNscX esMRW0b7OvXa55U07nT HdpZHRoPSIyMCUiIHZh fYzfdh8efQ5gQt7+PGN qmEH0gNF7lL2kYdMmGr I1IOojK392HwOonKUuO ekmA41bT7IgbOK+PHRy Uba8AXXrfYgaAB9wqVZ hLFvmYj8tXRN2ObFtAb HgYDteG7OyQNYhtarab vbsbPN8PQXuOIFodS63 Kp7psRkpSi9rZUSzFON 4BHHplNLuD2JncG9xSq JkNSHsBUDdO7QpbFLqV GidL626OAxuAfQ6XQNh qmXyR8VcJJRujJypKdW 0h2Z5Zo9BeKgkvEVmXH 7aKyApGEv3B0AnHay5A EYtaWoyFQ1kmMFaXHnp Ec3mxJzxyNnrVB8aWJD dtcynp797RdSah4jkZN GpbIBiBRyaHTH9B48oq 6J1XJIcUFAbBKP0xZB8 iQ3ceMfhclesiOQcnVs gdmVydGljYWwtYWxpZ2 31LXHoxUhgZzAZSom4Q 8ZhVuk2SDBzrVwvUV2o gQSyDRkyQm7wvUuayFq rWW5yYDPwngbmf615Ln Vtt5cgGBSeaSJcWLijH HN8S41zu0J4UJBsFPCl DWH4pYI9yB1ydKogtcs gbGVmdDsgdmVydGljYW aaIOubR288LMDvlIajL e5WZhj2K7EcEku5LHYh yCqcIY4pxLMyHQjwVx1 seRvauWslOP6ySDGhbi uvz722IeIap3eyWVHjt SFzREefBDV2O36tm4W0 VNOnGRZkPSH4nOH2uW1 hbGlnbjogbGVmdDsgdm KotHwlIWrbBOpxA042B HRvcDsnPlBheWVyOjwv dGQ+NN82id46D7MaMio eQkz5JRXhQWQ0oNN8gO 4oEZIeYSkmn9V4jPQ7F 3TdudMngf4je3kzEYZb ZTog (more content not included)... Normal [facility] Semen An/Cnton 11-05-2020 Crista/Transport Prob No Problems Normal [facility] Comment on above: Performed By: #### 1 [id number], [id number] ####[place] [address] Collect. Meth Masturbation Normal [facility] Comment on above: Performed By: #### 1 [id number], [id number] ####[place] [address] Days Abstained 4 day(s) Normal 2-5 [facility] Comment on above: Performed By: #### 1 [id number], [id number] ####[address] [address] Graded Motility 3 Normal [facility] Comment on above: Result Comment: 0 - Non-Motile 1 - Very sluggis, no forward progression 2 - Forward progression present, but very slow 3 - Good forward progression with tail movements visualized 4 - Rapid forward progression with tail movements difficult to visualize Performed By: #### 1 [id number], [id number] ####[address] [place] [address] Motile Sperm 44 % Low 60-100 [facility] Comment on above: Performed By: #### 1 [id number], [id number] ####[facility] [id number] [place] [address] Semen Viscosity MAXIM Normal <=29 [facility] Comment on above: Performed By: #### 1 [id number], [id number] ####[address] [place] [address] Spec. Container Steril Container Normal [facility] Comment on above: Performed By: #### 1 [id number], [id number] ####[address] [place] [address] Spec. Temp 21 DegC Normal 20-37 [facility] Comment on above: Performed By: #### 1 [id number], [id number] ####[place] [id number] Sperm Count 33 Million/mL Normal >=20 [facility] Comment on above: Result Comment: A Co ncentration Technique is used to evaluate all sperm counts <20 million. Performed By: #### 1 [id number], [id number] ####[address] [address] Sperm pH 8.0 No Units Normal 7.2-8.9 [facility] Comment on above: Performed By: #### 1 [id number], [id number] ####[address] [address] Volume Semen 0.9 mL Normal 0.7-6.5 [facility] Comment on above: Performed By: #### 1 [id number], [id number] ####[address] [address] WBC Semen 0 - 2 Invalid Interpretation Code [facility] Comment on above: Performed By: #### 1 [id number], [id number] ####[address] [address] Sperm Morphon 11-05-2020 Sperm Morph <20% abnormal sperms identified. Invalid Interpretation Code [facility] Comment on above: Order Comment: Order Added by Discern Expert. Performed By: #### 1 [id number], [id number] #### [facility] [address] [place] [address] Physician Orderon 10-31-2020 Physician Order [id number] Normal [facility] Vital Signs Date Time Vital Sign Value Performing Clinician Facility 05-28-2023 15:45-0500 Body height 177.8 cm Madelyn Raymundo Other [facility] Other 05-28-2023 15:45-0500 Body mass index (BMI) [Ratio] 32.85 kg/m2 Madelyn Hammmond Other [facility] Other 05-28-2023 15:45-0500 Body temperature 98.6 [degF] Madelyn Hammmond Other [facility] Other 05-28-2023 15:45-0500 Body weight 103.87 kg Madelyn Hammmond Other [facility] Other 05-28-2023 15:45-0500 Diastolic blood pressure 111 mm[Hg] Madelyn Hammmond Other [facility] Other 05-28-2023 15:45-0500 Respiratory rate 18 /min Madelyn Raymundo Other [facility] Other 05-28-2023 15:45-0500 SaO2% (BldA) [Mass fraction] 99 % Madelyn Hammmond Other [facility] Other 05-28-2023 15:45-0500 Systolic blood pressure 156 mm[Hg] Madelyn Hammmond Other [facility] Other 02-08-2023 15:00-0400 Body height 177.8 cm Earle Gore Other [facility] Other 02-08-2023 15:00-0400 Body mass index (BMI) [Ratio] 32.91 kg/m2 Earle Gore Other [facility] Other 02-08-2023 15:00-0400 Body weight 104.06 kg Earle Gore Other [facility] Other 02-08-2023 15:00-0400 SaO2% (BldA) [Mass fraction] 100 % Earle Gore Other [facility] Other Encounters Encounter Date Encounter Type Care Provider Facility Start: 05-28-2023 End: 05-28-2023 ambulatory Madelyn Raymundo Other [facility] Other Start: 05-28-2023 Office outpatient vi sit 15 minutes Madelyn Raymundo [facility] Start: 05-24-2023 End: 05-25-2023 ambulatory Christina Martinez MD Facility:[facility] Start: 02-08-2023 End: 02-08-2023 ambulatory Earle Richterky Other [facility] Other Start: 02-08-2023 Office consultation new/estab patient 60 min Earle Gore [facility] Start: 01-01-2023 End: 01-01-2023 ambulatory Amado Valladares Facility:[facility] Start: 01-01-2023 End: 01-01-2023 ambulatory PBX MANAGER-C Madelyn Mims Work Phone: [facility] Work Phone: Start: 01-01-2023 End: 01-01-2023 Patient encounter procedure PBX MANAGER-C Madelyn Mims Work Phone: [facility] [address] Work Phone: Start: 10-30-2022 End: 10-31-2022 ambulatory MADELYN MIMS Facility:[facility] Start: 10-28-2022 End: 10-29-2022 ambulatory MADELYN MIMS Facility:[facility] Start: 10-17-2022 End: 10-18-2022 ambulatory MADELYN MIMS Facility:[facility] Start: 08-27-2022 End: 09-17-2022 ambulatory MADELYN MIMS Facility:[facility] Start: 10-16-2018 End: 10-16-2018 Emergency department patient visit FLOYD Lisette VILLAFANA [facility] Procedures Date Procedure Procedure Detail Performing Clinician Start: 01-01-2023 XR pre/post mri xray PBX MANAGER Yessy Mims Work Phone: Start: 01-01-2023 MRI of cervical spin e without contrast PBX MANAGERAdelaidaC Madelyn Mims Work Phone: Start: 10-16-2018 ED NURSING COMMUNICATION FLOYD DAYAMOSTED Payers Date Payer Category Payer Self-pay 2022 Unknown 1985 Unknown [id number] 2.16.8 [id number] 1987 Unknown [id number] 2.16.84 [id number] 1987 Unknown [id number] 2.16.84 [id number] 1987 Unknown [id number] 2.16.84 [id number] 1987 Unknown [id number] 2.16.84 [id number] 1987 Unknown [id number] 2.16. [id number] 1959 Unknown [id number] Unknown [id number] 2.16.8 [id number] Social History Date Type Detail Facility Tobacco smoking status NHIS Unknown if ever smoked [facility] Work Phone: Start: 1985 Sex Assigned At Male F [facility] Sex Assigned At Sex Assigned At Bir [facility] Other Evaluation note 05-28-2023 Note Date & [...] with diagnosis of hypertension (ICD-10 - I10) [facility] Other Evaluation note 02-08-2023 Note Date & [...] negative findings were considered in medical decision-making. [facility] Other Evaluation note Note Date & Type Note Facility Evaluation note No assessment information [facility] Work Phone: History general Narrative - Reported Note Date & Type Note Facility History general Narrative - Reported Type Medical History GERD [facility] Other Summary Purpose Family History No Family [...] and content) DATE CREATED AUTHOR 10/19/2018 [facility] DATE CREATED AUTHOR AUTHOR'S ORGANIZ ATION 02/03/2021 [facility] DATE CREATED AUTHOR AUTHOR'S ORGANIZ ATION 11/02/2022 [facility] DATE CREATED AUTHOR AUTHOR'S ORGANIZ ATION 01/07/2023 [facility] DATE CREATED AUTHOR AUTHOR'S ORGANIZ ATION 06/04/2023 [facility] Care Teams (unrecognized sec tion and [...] BE BASED ON THE PRIMARY CLINICAL RECORDS. [employer] provides no warranty or guarantee of the accuracy or completeness of information in this document.
[2023-07-12 06:50] VITALS: BP 137/92; PULSE 67; RESP 16; TEMP 36.7; O2SAT 97
[2023-07-12 07:34] VITALS: BP 126/81; PULSE 62; RESP 18; O2SAT 98
[2023-07-12 07:37] VITALS: BP 127/83; PULSE 60; RESP 18; O2SAT 98
[2023-07-12] MEDS: IOHEXOL 240 MG/ML - 10 ML VIAL 12 MG INJ (07:39)
[2023-07-12] MEDS: BUPIVACAINE HCL 0.25% PF 25 MG/10 ML VIAL INJ (07:39)
[2023-07-12] MEDS: DEXAMETHASONE SOD PHOS 10 MG/ML VIAL INJ (07:39)
--- NOTE | 2023-07-12 07:39 | P.ON_ITS ---
Date of procedure: 07/12/23 Pre-op diagnosis: M54.12 Post-op diagnosis: same as pre-op Procedure: Procedure: Left C5-6, 6-7 transforaminal epidural steroid injection Medications: Bupivacaine 0.25% 1cc, lidocaine 2% 1cc, dexamethasone 10mg The patient was seen and examined in the preoperative holding area.? Informed consent was obtained and placed on the chart.? Patient was brought to the medical procedure unit and placed in the prone position where a timeout was completed verifying the correct patient, procedure site, position, and planned special equipment using sterile aseptic technique.? Under direct fluoroscopic visualization a 25-gauge Quincke tipped spinal needle was advanced to the designated neural foramen where contrast dye was injected to show adequate spread.? The needle was inserted at level left C5-6. There was no evidence of vascular or adverse uptake.? Epidural spread was appreciated.? The above- mentioned injectate was then placed in a 1.5 mL aliquot preceded by negative aspiration.? The needle was removed. The needle was inserted and the procedure repeated at level left C6-7.? The surgery site was covered.? Patient was taken to the postprocedural recovery area and monitored for an appropriate length of time before found suitable for discharge in the accompaniment of a responsible adult. Anesthesia: Local Surgeon: Christina Martinez Pathology: none sent Condition: stable Disposition: no change
[2023-07-12] MEDS: LIDOCAINE HCL 2% PF 100 MG/5 ML VIAL 2 ML INJ (07:40)
== END 2023-07-12 07:41 | disposition home or self-care (01) ==
PROVIDERS: PCP Nurse Practitioner Family; Visit Provider Anesthesiology
DX: M54.12 Radiculopathy, cervical region (principal)
CPT/HCPCS: 64479; 64480; J0665; J1100; Q9966

== ENCOUNTER 2023-07-29 14:02 | Outpatient (OUT) | payer OTHER, SELFPAY ==
--- OUTSIDE RECORDS SUMMARY | 2023-07-29 14:07 | XMS_ITS | CCD ---
Author Name Unknown Address [address] [facility] [address] [place] [address] Organization [facility] Care Team Providers Care Animal Keeper Name Role Phone FLOYD VILLAFANA Primary Care Unavailable PRASANNA, MADELYN Admitting Unavailable PRASANNA MADELYN Attending Unavailable PRASANNA, MADELYN Primary Care Unavailable FREDDY, DR NAKUL Keating Consulting Unavailable RTUHEBTHOMAS, DR MOE Romero Consulting Unavailable PRASANNA, MADELYN Consulting Unavailable PRASANNA, MADELYN Admitting Unavailable PRASANNA, MADELYN Attending Unavailable PRASANNA, MADELYN Primary Care Unavailable SOHEILA, DR MOE Romero Consulting Unavailable PRASANNA, MADELYN Consulting Unavailable PRASANNA, MADELYN Admitting Unavailable PRASANNA, MADELYN Attending Unavailable PRASANNA, MADELYN Primary Care Unavailable PRASANNA, AMDELYN Consulting Unavailable PRASANNA, MDAELYN Admitting Unavailable PRASANNA, MADELYN Attending Unavailable PRASANNA, MADELYN Primary Care Unavailable Amado Valladares Admitting Unavailab Amado Go Attending Unavailab Madelyn Jeong Primary Care Unavailable DO Amado Valladares Attending Provider DONNY Mims Primary Care Provider Earle Gore Unavailable Madelyn Raymundo Unavailable Juna BRUNO, Christina Cagle Attending Unavailable Gijeff BRUNO, Christina Cagle Attending Unavailable Juan BRUNO, Christina Cagle Attending Unavailable [...] (COVID-19) RNA PEDRO+probe Ql (Unsp spec) Negative [facility] Other COVID + FLU Quick Testing Negative [facility] Other XR pre/post mri xrayon 01-01 XR pre/post mri xray [facility] Main [place] [address] [place] [address] MRI Report Signed Patient: Andreas Hernandes MR#: [id number] [birth year] : 1985 Acct:[id number] Age/Sex: 37 / M ADM Date: 01/01/23 [facility] Room: Type: [facility] Attending Dr: Amado Valladares DO Copies to: Amado Valladares DO Ordering Provider: Amado Valladares DO Date of Service: 01/01/23 MR/MR cervical spine wo con: [id number] ([id number]) XR/XR pre/post mri xray: post MRI cervical [...] Bean Hill M.D.01/01/2023 3:26 PM Dictation Location: [place] [address] Transcribed By: [facility] 01/01/23 152 Dictated By: Bean Hill II, MD 01/01/23 152 Signed By: 01/01/23 1526 [facility] CTA NECK WO W CONon [...] by: MOE PARNELL Date: 2022-10-30 09:17 Normal [facility] MRI BRAIN WO W CONon 023 MRI [...] MOE PARNELL Date: 2022-10-28 09:35 Normal [facility] XR CSPINE 2_3 VIEWSon 2022 XR [...] by: NAKUL HAYES Date: 2022-10-28 07:46 Normal [facility] XR FOREIGN BODY EYEon 2022 XR FOREIGN BODY EYE EXAMINATION: XR FOREIGN BODY EYE HISTORY: Foreign body in eye COMPARISON: No relevant comparison available. FINDINGS: ORBITS: Negative for a metallic foreign body. OTHER: Negative. IMPRESSION: No metallic foreign body in the orbits Electronically authenticated by: NAKUL HAYES Date: 2022-10-28 07:43 Normal [facility] JULIAN DIRECTon 10-19-2022 JULIAN Direct Negative Normal Negative [facility] Comment on above: Performed By: #### A NAD ####[facility] [address] [place] [address]Dr. Carl Gama ANTISTREPTOLYSIN O AB (ASO)o n 10-18-2022 Antistreptolysin O Ab 86.9 IU/mL Normal 0.0-200.0 [facility] Comment on above: Performed By: #### A SOAB #### [facility] [address] [place] [address] Dr. Carl Gama RHEUMATOID FACTORon 10-19-19 23 RA Latex Turbid. <10.0 Normal <14.0 [facility] Comment on above: Performed By: #### R F ####[facility] [address] [place], [place] [address]Dr. Carl Gama CBC AUTO DIFFon 10-17-2022 BASO # 0.0 103/ul Normal 0.0-0.1 [facility] Comment on above: Performed By: #### C BC #### [facility] [address] [place] [address] Dr. Carl Gama Basophils/100 WBC (Bld) 0.6 % Normal 0.2-2.0 [facility] Comment on above: Performed By: #### C BC #### [facility] [address] [place] [address] Dr. Carl aGma EO # 0.1 103/ul Normal 0.0-0.7 [facility] Comment on above: Performed By: #### C BC #### [facility] [address] [place] [address] Dr. Carl Gama Eosinophils/100 WBC (Bld) 2.1 % Normal 0.9-7.0 [facility] Comment on above: Performed By: #### C BC #### [facility] [address] [place] [address] Dr. Carl Gama Erythrocyte distribution width (RBC) [Ratio] 13.2 % Normal 11.0-15.0 [facility] Comment on above: Performed By: #### C BC #### [facility] [address] [place] [address] Dr. Carl Gama Hematocrit (Bld) [Volume fraction] 44.9 % Normal 42.0-54.0 [facility] Comment on above: Performed By: #### C BC #### [facility] [address] [place] [address] Dr. Carl Gama Hemoglobin (Bld) [Mass/Vol] 15.2 g/dL Normal 14.0-18.0 [facility] Comment on above: Performed By: #### C BC #### [facility] [address] [place] [address] Dr. Carl Gama IG # 0.02 10e3/ul Normal 0.00-0.03 [facility] Comment on above: Performed By: #### C BC #### [facility] [address] [place] [address] Dr. Carl Gama IG % 0.4 % Normal 0.0-0.5 [facility] Comment on above: Performed By: #### C BC #### [facility] [address] [place] [address] Dr. Carl Gama LYMPH # 1.5 103/ul Normal 1.2-3.8 [facility] Comment on above: Performed By: #### C BC #### [facility] [address] [place] [address] Dr. Carl Gama Lymphocytes/100 WBC (Bld) 32.2 % Normal 20.5-60.0 [facility] Comment on above: Performed By: #### C BC #### [facility] [address] [place] [address] Dr. Carl Gama MANUAL DIFF REQ NO Normal [facility] Comment on above: Performed By: #### C BC #### [facility] [address] [place] [address] Dr. Carl Gama MCH (RBC) [Entitic mass] 28.4 pg Normal 25.9-34.0 [facility] Comment on above: Performed By: #### C BC #### [facility] [address] [place] [address] [address] Carl Gama MCHC (RBC) [Mass/Vol] 33.9 g/dL Normal 29.9-35.2 [facility] Comment on above: Performed By: #### C BC #### [facility] [address] [place] [address] [address] Carl Gama MCV (RBC) [Entitic vol] 83.9 fL Normal 80.0-94.0 [facility] Comment on above: Performed By: #### C BC #### [facility] [address] [place] [address] Dr. Carl Gama MONO # 0.4 103/ul Normal 0.3-0.8 [facility] Comment on above: Performed By: #### C BC #### [facility] [address] [place] [address] Dr. Carl Gama Monocytes/100 WBC (Bld) 9.0 % Normal 1.7-12.0 [facility] Comment on above: Performed By: #### C BC #### [facility] [address] [place] [address] Dr. Carl Gama NEUT # 2.7 103/ul Normal 1.4-6.5 [facility] Comment on above: Performed By: #### C BC #### [facility] [address] [place] [address] Dr. Carl Gama Neutrophils/100 WBC (Bld) 55.7 % Normal 43.0-75.0 [facility] Comment on above: Performed By: #### C BC #### [facility] [address] [place] [address] Dr. Carl Gama Platelet mean volume (Bld) [Entitic vol] 8.6 fL Critically low 9.5-13.5 [facility] Comment on above: Performed By: #### C BC #### [facility] [address] [place] [address] Dr. Carl Gama PLT 321 103/ul Normal 150-450 [facility] Comment on above: Performed By: #### C BC #### [facility] [address] [place] [address] Dr. Carl Gama RBC 5.35 106/ul Normal 4.70-6.10 [facility] Comment on above: Performed By: #### C BC #### [facility] [address] [place] [address] Dr. Carl Gama WBC 4.8 103/ul Normal 4.0-11.0 [facility] Comment on above: Performed By: #### C BC #### [facility] [address] [place] [address] Dr. Carl Gama CRPon 10-17-2022 CRP [Mass/Vol] mg/L Normal <=1.0 [facility] Comment on above: Performed By: #### U TIBURCIO, CMP, CRP #### [facility] [address] [place] [address] Dr. Carl Gama GLYCOHEMOGLOBIN A1Con 2022 ADA RECOMMENDATION SEE BELOW Normal [facility] Comment on above: Result Comment: ADA RECOMMENDED LIMIT 4.0 - 6.0 ADA THERAPEUTIC TARGET < 7.0 ACTION SUGGESTED > 7.0 Performed By: #### A 1C #### [facility] [address] [place] [address] Dr. Carl Gama HbA1c (Bld) [Mass fraction] 5.7 % Normal 4.5-6.2 [facility] Comment on above: Performed By: #### A 1C #### [facility] [address] [place] [address] Dr. Carl Gama PROF 14(COMP METB)on 023 Albumin [Mass/Vol] 3.8 g/dL Normal 3.4-5.0 [facility] Comment on above: Performed By: #### U TIBURCIO, CMP, CRP #### [facility] [address] [place] [address] Dr. Carl Gama Albumin/Globulin [Mass ratio] 1.1 {ratio} Normal [facility] Comment on above: Performed By: #### U TIBURCIO, CMP, CRP #### [facility] [address] [place] [address] Dr. Carl Gama ALP [Catalytic activity/Vol] 58 U/L Normal 46-116 [facility] Comment on above: Performed By: #### U TIBURCIO, CMP, CRP #### [facility] [address] [place] [address] [address] Carl Gama ALT [Catalytic activity/Vol] 72 U/L Critically high 16-63 [facility] Comment on above: Performed By: #### U TIBURCIO, CMP, CRP #### [facility] [address] [place] [address] [address] Carl Gama Anion gap [Moles/Vol] 13.2 mmol/L Normal [facility] Comment on above: Performed By: #### U TIBURCIO, CMP, CRP #### [facility] [address] [place] [address] [address] Carl Gama AST [Catalytic activity/Vol] 30 U/L Normal 15-37 [facility] Comment on above: Performed By: #### U TIBURCIO, CMP, CRP #### [facility] [address] [place] [address] [address] Carl Gama Bilirubin [Mass/Vol] 0.6 mg/dL Normal 0.2-1.0 [facility] Comment on above: Performed By: #### U TIBURCIO, CMP, CRP #### [facility] [address] [address] [address] Carl Gama Calcium [Mass/Vol] 8.5 mg/dL Normal 8.5-10.[address] [facility] Comment on above: Performed By: #### U TIBURCIO, CMP, CRP #### [facility] [address] [address] [address] Carl Gama Chloride [Moles/Vol] 107 mmol/L Normal 98-107 [facility] Comment on above: Performed By: #### U TIBURCIO, CMP, CRP #### [facility] [address] [address] [address] Carl Gama CO2 [Moles/Vol] 25.7 mmol/L Normal 21.0-32.0 [facility] Comment on above: Performed By: #### U TIBURCIO, CMP, CRP #### [facility] [address] [place] [address] [address] Carl Gama Creatinine [Mass/Vol] 0.95 mg/dL Normal 0.70-1.30 [facility] Comment on above: Performed By: #### U TIBURCIO, CMP, CRP #### [facility] [address] [place] [address] [address] Carl Gama EGFR-AF YEMENI >60 Normal >=60 [facility] Comment on above: Performed By: #### U TIBURCIO, CMP, CRP #### [facility] [address] [place] [address] [address] Carl Gama EGFR-NON AF YEMENI >60 Normal >=60 [facility] Comment on above: Performed By: #### U TIBURCIO, CMP, CRP #### [facility] [address] [address] [address] Carl Gama Globulin (S) [Mass/Vol] 3.4 g/dL Normal [facility] Comment on above: Performed By: #### U TIBURCIO, CMP, CRP #### [facility] [address] [address] [address] Carl Gama Glucose [Mass/Vol] 117 mg/dL Normal [facility] Comment on above: Performed By: #### U TIBURCIO, CMP, CRP #### [facility] [address] [place] [address] Dr. Carl Gama Performed By: #### A 1C #### [facility] [address] [address] [address] Carl Gama Potassium [Moles/Vol] 3.9 mmol/L Normal 3.5-5.1 [facility] Comment on above: Performed By: #### U TIBURCIO, CMP, CRP #### [facility] [address] [address] [address] Carl Gama Protein [Mass/Vol] 7.2 g/dL Normal 6.4-8.2 [facility] Comment on above: Performed By: #### U TIBURCIO, CMP, CRP #### [facility] [address] [place] [address] Dr. Carl Gama Sodium [Moles/Vol] 142 mmol/L Normal 136-[address] [facility] Comment on above: Performed By: #### U TIBURCIO, CMP, CRP #### [facility] [address] [address] [address] Carl Gama Urea nitrogen [Mass/Vol] 7.0 mg/dL Normal 7.0-18.0 [facility] Comment on above: Performed By: #### U TIBURCIO, CMP, CRP #### [facility] [address] [address] [address] Carl Gama Urea nitrogen/Creatinine [Mass ratio] 7.4 mg/mg Normal [facility] Comment on above: Performed By: #### U TIBURCIO, CMP, CRP #### [facility] [address] [place] [address] [address] Carl Gama URIC ACID SERUMon 10-17-2022 Urate [Mass/Vol] 5.2 mg/dL Normal 3.5-7.2 [facility] Comment on above: Performed By: #### U TIBURCIO, CMP, CRP #### [facility] [address] [address] [address] Carl Gama Semen An/Cnton 02-03-2021 Crista/Transport Prob No Problems Normal [facility] Comment on above: Performed By: #### 1 [id number], [id number] #### [facility] [address] [place] [address] Collect. Meth Masturbation Normal [facility] Comment on above: Performed By: #### 1 [id number], [id number] #### [facility] [address] [place] [id number] Days Abstained 3 day(s) Normal 2-5 [facility] Comment on above: Performed By: #### 1 [id number], [id number] #### [facility] [address] [place] [address] Graded Motility 2 Abnormal [facility] Comment on above: Result Comment: 0 - Non-Motile 1 - Very sluggis, no forward progression 2 - Forward progression present, but very slow 3 - Good forward progression with tail movements visualized 4 - Rapid forward progression with tail movements difficult to visualize Performed By: #### 1 [id number], [id number] #### [facility] [address] [place] [address] Motile Sperm 13 % Low 60-100 [facility] Comment on above: Result Comment: A lo [...] or Non-motile sperm. Performed By: #### 1 [id number], [id number] #### [facility] [address] [place] [address] Semen Viscosity 810 minute(s) High <=29 [facility] Comment on above: Performed By: #### 1 [id number], [id number] #### [facility] [address] [place] [address] Spec. Container Steril Container Normal [facility] Comment on above: Performed By: #### 1 [id number], [id number] #### [facility] [address] [place] [address] Spec. Temp 23 DegC Normal 20-37 [facility] Comment on above: Performed By: #### 1 [id number], [id number] #### [facility] [address] [place] [address] Sperm Count 24 Million/mL Normal >=20 [facility] Comment on above: Result Comment: A Co ncentration Technique is used to evaluate all sperm counts <20 million. Performed By: #### 1 [id number], [id number] #### [facility] [address] [id number] Sperm pH 8.0 No Units Normal 7.2-8.9 [facility] Comment on above: Performed By: #### 1 [id number], [id number] #### [facility] [address] [place] [address] Volume Semen 3.3 mL Normal 0.7-6.5 [facility] Comment on above: Performed By: #### 1 [id number], [id number] #### [facility] [address] [place] [address] WBC Semen 1 - 3 Invalid Interpretation Code [facility] Comment on above: Performed By: #### 1 [id number], [id number] #### [facility] [address] [place] [address] Sperm Morphon 02-03-2021 Sperm Morph <20% abnormal sperms identified. Invalid Interpretation Code [facility] Comment on above: Order Comment: Order Added by Discern Expert. Performed By: #### 1 [id number], [id number] #### [facility] [address] [place] [address] Coding Summary.on 01-31-2021 Coding Summary. CD:[id number] QOx2cTy+PGhlYWQ+PE1 ROJFeQ37axJLedJ7GI7 dNUK9PEGNQHOLORR2PZ L3kzUT3TIokR1BjdfRe OgluqIQyPD78XIs8GRZ 8oXavQNhqvU6kwRLfD6 v9CzGfWE90hY80VZggS AIrLjH5WzGnroqblNFf I1ldWlFheGOtMly+PHR hYmxlIHdpZHRoPScxMD FkRlYgcNfiUK8yOt9mH GVyLWNvbGxhcHNlOiBj w4itFABjVNciBI5enMz uM0EipXK5APKgh0b6Kc 48dHI+XTUpICG1uSegQ Cwtf324ByJjr9dgJCF9 bYNfKMhnWIA8Y90hy4Q 8TNJaHMHxGSO9dUU8oN 5xvEotnhouT1RdbIFnV fT7HWJ9yXNjzN2xuRtv forlrY6tXoc+P41WMY8 BSOEVLS4BLdj0S0LxGa wvdHI+WD78IMPbZI37j QPlkSRjq6yrcGt1ZlQi MEFpJOX9dYrgQJntl5M iPTNqC65hySJzo6S5OT JnxWbmiOJpXpMgoXF7x H7hHReduwwwk2glllkc Dnxkn9vpxe24kQ62W14 vXWsvRZGgFHK7ISUtVR VgxRweef1wjJ4kSv1+I Kulm5lkm6wooAt3XuQj DRJokbMlkPgdJZJ6u5E mBk39C8OgtJyqp5NkPm k9nf57dWYld2C1rYZ0U OhbWLUyuM7zLKppDvO2 CQXhRqCvcY66kFGqBPd jRy5jwJedlGovEG6kWV WmoizcJLTjaC0jVLWvw QPboAhhNU0tVDEjgnoa l352WyUpKNX4MWYlbOR cM5JseD0mWvHgDFKwRY RqD6KvbAPsVFvcX367G GooLaC1HXVblyKfE6El RGAhyRfoDdM0r6N7Ap5 Dw6CdhzyrHQU5CPbkYR J8PfXbPjGmSaE0O4GhR dq2DFYemVhdBB8hH1Bt HRAohieketuksYO5OYA yEIWwaH34aPYmIKigQt 4sv4U6o660OQDyVGShg W04Ts4vgXnxUMNfvWLO qF3fievtg3szdmneDfR yVKEbQLk2TVo5DUIzbY icSbHyHQU4EvJ5MYN4u TFpqQ9hgIavublbpF1k Oyc+R84ebT1pXDQ6MYM 3rbbgZVCvmeApKE98LU 58T5PuMdhleUSnxPC+P LAxbdFbpVkyXT0qLqRz l9reu5GaBPzeZ9JuOMX dDRznJlk9OKZvUHJ6bB V3sZ1iAJVyUPzhu2K7z RL4V3KmenIkos1ep6xr RJUmMGcwV82qcYFfa1J 3VNVvjDU3LIEtkQjdBb BwsS51Btw+PGNvbGdyb 7ZfIypzm8hnh2hhzXf5 IjMwJSIgdmFsaWduPSJ 2t5NgUb99G55yGAvlHJ RoPSIxNSUiIHZhbGlnb p5plN1jLr9+PGNvbCB3 zRT5tT8zPNHwOyS9IQy rO198ZoRjxAUmPbuhq8 mmo8vgeUn7LeUvKSCzt eExbZwjTTF4g3RsPn86 N41vQOtuLRByRNIcIMK bOVCejGwbee2alH7qVc 8+JO7jh0bxzo13vW69v HI+QGPyXIZ8xYsxJTfs IFQbxA2tWBijSzW5HAH yLoOacX77uIHfWIrhPd 7laWjffStrMW8bCHCfv kwxa618MpAep2nvJFZc lEGtMMezXXG3M75to6E 5JESfIWPzRKW6bFH2mR 1hbGlnbjogbGVmdDsgd nFohRubCLujKYwsT997 IHRvcDsnPlBhdGllbnQ pMmIuZOt3V3ZhYci9RE MmuIjhUX4ihTUoFFgpT a8wkJscxHmtPI8mFHSn gcyfk439CeQdr2bdWVR ebZMhTIkvMVT9H04wv5 D5QMXmDZGlLSK7lQN9u F9pnLaiufcsyIQgxKpq caWdhTfjOZuoJEdlO93 6IHRvcDsnPkJpcnRoIE ZxaBG9HR53EM45xWNoc 5R2gIZ6P3HgBHNfhtyz acugxSF0EYCxOGNnfK8 0Fw0ukCbiVh2gSBOtYJ B0VRQjdVCgM0LqvZ1vH dQnRMFoLZNxD4WetWEn HFlzR362LKmkHeF3YXN baoLkD0JpDACkmKjcAi L7p9B0Kr0FA3M8IK73M W99jBWbv8D0vEY6E6Ho OLJckzqfknlyjDU8VNM vRRKzmW73Lb4qoTmkSm 3xGWZvKTY1ZUXmtUWcI 1KceL6gTvBmBKXpIKXk E6FgvQAkETbdZ868DZe aLqV0GKHypoRfD9ZzJF QuhIhwMqI4s7X7Td5UN Cl3YB08LI46xVSnd6Q4 pYA0X3LtMBVxmeulsji shPV3DQPjQLJrhL24Hj 7phIssTz8oHUMkDUX9U GUtnCRuF9GuvY6dBjLe PKAhSBDhG8GbcVIrZXy yY665MBhyJjU3PXXudx XdS6RvFCAolDrpEoO5m 7H1Yf2FDQNaZH12JDA9 yRS5OH18GO53M2WyMgn vdGFibGU+PHRhYmxlIH dpZHRoPScxMDAlJyBzd TfcQL2dIl7oVHNhIXYc iQjsjNBiMqSng8myAYD pCYheNT8xmKnoL8WacP B9STZuc6l7Xa10S23gM 3JvdXA+CSCorAW0nBW6 aV1mDbIgTbC3EAsdZ08 3RsBobQOzXkyqb3ncb7 shqAa6LvW1JPTydeLsc QteALB4g8KnWo86M39q IHdpZHRoPSIxNSUiIHZ eqQberp1odQ9mCp2+PG ItoEG4wDU4pJ4hOpEwF aW3ERvmC665RtFbdVTv Fghlu5mrv4ajrPu0RvE uKGYxcsWkyZnuGRS4o7 GpFp37A4JztDwkc8EqO nr1fi82eFLsq2X4rBN7 X1FvCYUfslcqpHCnzUl nKZ0rPTIoyqtdNTOktB 8cJZZjC4l8TqQtUoP3B LzrR3VgzbU8ULXwfRXd FCnwSFM5M17wv7G6HVM cYJKqCWD9gUU8mE1smE lnbjogbGVmdDsgdmVyd CkbYVobDGguE526NLMe qMzlGHDtrH6pXYZalAH mkIejOQ6cVWPctefdLt sHU7RJFXquASkKRZT5C 0YrDrn2ISJhuFguRU2z kEFrIHngWn4jjElbmDv rTX4gBPLotnabWBOpwR 3sKDVawHMqpVveYA7bQ XTxfoxei472UvOqYEX5 QPOvwAAkF1DdmW2hXzK bCKEvKBArH0TuzZLkKH zvR887XKzwTnC6EPYkq lIcR4GwUDAkqBuwIjE9 z0F3Yr7jXj3eJs2gMGb 5MX82KC93nEMdr7V5fT T2K0OoOLXgmpdosvehx TJ7IMJoSVYzpM88bEBf ACgeUp9oo8Y0j534GRF uXEKbyN37Yj0mwXfdIB DnbDMUeV6qbvozx1snu vytGpReXYLjTAn9JTj8 NPUpjYasPoQmSEZ1JkC 2MGQ2bLZyrU8apZedfp abbW0yQix+MzMgWWVhc uD1R7WxLyy9SWBtrMkd KA3abOJyPYljPu9ogSy fpDtrEA4nISXuxypjDA ZbhW5kNWAnpVMenCleX U2hBUCprgaqh530IvGp XKO2AFWtyCQaA0DssT9 cScNmOJBcJLTsS4SamU HuWVtfU228HZlmUfD1J IHrxpCsG4QeIIKobGpo BzL9e7P6Qx1IAVvlOR8 2XP20pTLub3H1oNE0I0 PbVPDuvnilunxykEC8X GDoXEQdaB94nDZnFSqi Rp1ds5Q6t669BWXcXAT eqM43Po1sgLzfBWYigB SEmX1esmwhd6voyorrB iHdFOYiHHw6AZo9BFGu nVueKzLlAHB5EsO9JOH 3jRSkcX2vlEdgunnafL 9wOyc+J8G0sRC4rLFdp DwvdGQ+II06kf09J2Fl CwjeEqe3HMKjFZP5fDF 6gX4wCBUaGHooq9B5hS H0T0FlkxActb6um6zdA RQwIQpkA13agJZwo7L2 BEWviRC3EYBwrXuuKaT cmN81Bdm+PGNvbGdyb3 KgBaybi1oil7ttuZy5B jMwJSIgdmFsaWduPSJ0 t5ExZv25K91yQMktCXZ oPSIzMCUiIHZhbGlnbj 0dnK6nXp8+ZEDfnUV6r AV7xP9zFoYxKtZ8UXda R391UzLuiUTtHfwip7w kk1johIf9JuDbOBBorx RrhOluKWS5w8AgMv48B 0BnsKcgb5SlDjb2op76 hUHtd9U6aAL3M9WiVEQ qmxvecZAktEamQJ7sKA OzqgqdNYMocR8cXCZzU 2q3HfBpFaC6PScqM5Te xjV9DFXhzYSvGQUscOV YjR3lqflcu8tvsxrxYl PeNBKaCPf1SYx5YJSng SsvItYaPPZ0VbC5PQH4 dTDydK1yrRaotanufQ8 wOyc+UWx9i6aylUBkFG 1knNO4HI18OU15mAFur 4P0yJZ1R1OfMBTbaowh udaeoYM4OSRsPYCqxY5 9Mb1sbZlpSw0uWUQvLJ H5GTMevMSmJ3NmqK2dO tVeECStILKcA8ZnfGNk JVktN483GUvgZiZ5FFT mtmNwH3UmDGKipWflSx W6w5P7Mq6TZB04QE83I E85zPJul9B2lIB1X8Vz PLDnqiuunjcbmUO0UAW aAKGnxD32Pv1rnHhbVu 4uPAVuOWU7ZGBomWViB 5RqiY0fEtSsLHFaOMBo H3HjnZNpEMmyY765RNk bEsN2CWSuotSiW3ZoBD TctCrqYiH4b8S4Oi2NY p43RG61MW50eEPkv1N8 oLI0M8VyZMIzmdmegrj qaUY0NHKoLMKjlJ46Gf 0msFxpFy4mUAAvJUG0R UBzxNYfT6JsaV9jQeVm JRVnZOVoN0GmlUZqRUp tQ191CBezAwD5IYVlym ShV7JqSVJufIiiVeQ2n 0Y0Si2DOWudshb2T8Lj PjwvdHI+YC87YXVgBS5 6xHMdmWDmq2fnzGt5Bn BaTJBnODQ8iKcdLUjvr 2KcBKRrF26ndKKav7L4 IGNv (more content not included)... Normal [facility] 01-31-2021 Follitropin Qn 6.4 m[IU]/mL Invalid Interpretation Code 1.5-12.4 [facility] Comment on above: Result Comment: Perf ormed at: [facility] [address] [place], [place] [id number] PhD Vivian Bass Performed By: #### 1 [id number] #### [facility] [address] [place] [id number] Lutropin Qn 10.4 m[IU]/mL High 1.7-8.6 [facility] Comment on above: Performed By: #### 1 [id number] #### [facility] [address] [place] [address] Testosterone F&Ton Testosterone [Mass/Vol] 287 ng/dL Invalid Interpretation Code 264-916 [facility] Comment on above: Result Comment: Adul t male reference interval is based on a population of healthy nonobese males (BMI <30) between 19 and 39 years old. katelynn Thompson.al. JCEM 2017,102;4529-5147. PMID: [id number]. Performed By: #### 1 [id number] #### [facility] [address] [place] [address] Testosterone Free [Mass/Vol] 7.1 pg/mL Low 8.7-25.1 [facility] Comment on above: Result Comment: Perf ormed at: [facility] [address] [id number] PhD Vivian Bass Performed at: [facility] [address] [id number] MD Josef Almazan Performed By: #### 1 [id number], [id number] #### [facility] [address] [place] [address] Consent for Treatmenton Consent for Treatment [id number]#[id number]:127 Normal [facility] Physician Orderon 01-27-2021 Physician Order [id number]#[id number]:127 Normal [facility] Prolactinon 01-27-2021 Prolactin [Mass/Vol] 9.62 ng/mL Normal 2.64-13.[address] [facility] Comment on above: Performed By: #### 1 [id number] #### [facility] [address] [place] [address] TSHon 01-27-2021 TSH Qn 2.00 m[IU]/L Normal 0.34-5.60 [facility] Comment on above: Performed By: #### 1 [id number], [id number], [id number], [id number] #### [facility] [address] [place] [address] Coding Summary.on 11-11-2020 Coding Summary. CD:[id number] NSr7qYu+PGhlYWQ+PE1 WKVGoD05ahDMitH9PB7 yYEK0LJWWAHEHSJK6IQ K2laVM5OGyrK7GygmIa AmqseKNcBC73JZj8PHG 0mIjyCPjynO1uwTMkB6 s4PnBaPI18lB40CWlkS LXxTfT6AhBljtauxHDa D6ugPsIjrSVpTer+PHR hYmxlIHdpZHRoPScxMD DeLjQvbKcdBD1gQc2iG GVyLWNvbGxhcHNlOiBj g4rbMCUtBQlqSY4gcKz fZ4RyeDW9KPUki8j7Wt 48dHI+MSHkGPO5qHfvO Jmnz340AwSfz7caYEB3 nXUqOHevAJZ3N65nq0Y 5CCLlZQMtCUX1xOP6gU 2qdOwoekzeC6BonPZaQ aB2JQB9kJYocV5dvIsk nqehmW7wXxd+X65QTU3 RUSFYKF3EGiy2P1QbXw wvdHI+PM64UKHnYG33d XXqvZKkq6nrgLc2PySo TEEvIAP8oGbfZYjdl8Q aPHPsG68hzPFpb5U8NN DhhFdppCOzDvKsjSB2s X2cZIufqbuhn6oduchc Gblje7akqa36eP43O75 iKUjzPFNiTVB0DAYlNX EeeSurld8adF9jLd0+I Xfhr6gam3nluOi6QqDd RYNmppYdhTgoZQN2y1Q wVx50K3IpqFxzk4MgAy o0sk83vWIje5N6fBA5R DmgROGupD2cVBbjCrB8 ZYRxYoQpkC85qKNcNLg rXw5krTzbrXrdFH3jGT MpidklNBBemJ8iVJXlx PKiyUurMI2mZJRlalye e988ZpEgZSH0UZKixAJ sW1VksW3sTjAyITTvNX CjT1TlgGUdRZsiT442U VvaZgJ2WQEosrXvO1Mf BTOxxEaaIaY5l7P2Pw3 Fr4MxtkvbDNG2LNreQA J2IlB4KkBsOhF3Y5ZhK vz7FYGseCmzZR3aW7Yu MRWnlhbasosksFH1WWT fXELqnY79aNKwETvcDa 5ks8X4i755KXQbRUYzl K58Xg8vgPmqLBFgpWOL bY1enhjsn4bdoslvOvH cNFTyHCh2LAg7QPPcsH bsHbUlTYA2PdE6ZWE1r SNnnF1exJjqartpuT4p Oyc+M30zgU1cTDA6THJ 6qspjJFNacvCjCJ30NC 42P8AcQlvlnKBjsFL+P RKcytNubXmwDG2fNoEk r3lhm1SeGFudL8PqNDP vCMdhLvm1VVFdPRC7wP S4cV2xIZGzZXgpj8O0a EY6T4OlatLzoe9zc8zt RSIaNUkzI38niDPqa0M 9XCNjdTE2STGmzCetMv QlhD32Zjw+PGNvbGdyb 1GqIuatq6pdc9gaoPz5 IjMwJSIgdmFsaWduPSJ 1d4PdKf30Q31kZSjbUG RoPSIxNSUiIHZhbGlnb i0ubG6uOi2+PGNvbCB3 mTL2yW6qQQIcBhP3AGi qV496CeNaxHMlNcczu3 pbn3bvdBx2YcHsFELrw eKzfHrhYGC4l8AjNk62 B52dGUxmKMEyBBVeMVR aFWMygYdvyk3yvB1xHt 8+YI9on9fido37aF70i HI+CRXyIZU0mSzsWOso OFGtvV8qMLmzKpC9VKX xEbZqsQ25uUTwOTxrGh 0bzEjzgHiaLZ1xGHEss dtsa544WmBph9mnJCIv bMXcMPotSZR2O54vo6M 7NFXiISDhVAO5vXT7dG 1hbGlnbjogbGVmdDsgd sTegYtpSHipAClcY713 IHRvcDsnPlBhdGllbnQ nOrRwQHv3E6OeZnq4KR IpzNxkIT6brRUkVFolM a9gpLrfuEuhYM8eBVQm qxukr938GyDxc1zlOIQ pdVZzHYytYAB3B89wb7 V5IQAnVFFtATK1jVT4i J8nlUyxaylndAYtgUjx kiQtqInnHIkkEQxkP38 6IHRvcDsnPkJpcnRoIE HilRV9JA33SQ33pKFok 0M0qZK7T4VpWGJttlhs bogsnNN2NMZjTDDyzW0 3Dh5uqVwqJr3wDODrAV R6EIXffPLoO9WuvE5dY rChXIIuLOMgH4NfqFKp AOgyY327IShfIzT7KCN toaKgK8HmYCPctRgxXw Y0s3V3Dh6IQ7T7BJ58L U13tRKhk0W6pYU2Z2Ob VMApqhosaqhdoFC4AWH jOSSduV97Tk3qnMaaCp 1vMCXnUGZ7IFOndEBiD 8VwzR7yFnKwONFlAINj S4TgbRDhJFdoW936GMy tJqP3GNTdfbKzT3WeZD IykRjqByX0t6C4Ik5WJ Hy7FE44FH05fPFwl3B8 eUF1N6IsUYFpcedcyej dnGR1XDEtNPKlpG99Dc 3dnWijOf9aASJsJLQ8X YHybHOaO6KiqZ6vIlBu MHWaUBZoP4ArvUStLWg dV028PHwzXnG1XDJjrn WfR1QoVKRsfClwToV2s 9V8Ab9SJXZdXJ30ZMZ6 oHJ1RD07UA71Z6SfMgt vdGFibGU+PHRhYmxlIH dpZHRoPScxMDAlJyBzd XhwXY9fVd4rWGEjLGIb oOghvAIyMqLye3qoZLJ qIUiqQQ6bhGtjV8WksK J9VTGiw1t5Wc66F73zR 3JvdXA+UHYolFT1oFQ6 wE3eWtQjKxC4BHpgG44 5TjOgtGFaLlshq8hoe3 vfdYt6YiB6VGVnveFpn SjeURZ8x3LnLu86A91n IHdpZHRoPSIxNSUiIHZ nsSbcbs0ejT3vTf6+PG MrvYI3qQM4vF1gChSpC tM5LSmmH002AgOutOCw Rfati6eyy9hnxBr7DuN xINAnaqYrpElzHRU7y3 AfWy35O0BisDigx3QkQ re7iz91kXRxe3V5zUS8 A6UdMDPrjaeirAZrqTw wMS5hDYMbqvyeDYMffF 2cRKEnV2a8QcAzWaY4Q TpxL1DfwrK8HEFmuAQb AFzfDHQ9T20ok9U8RZI kQVAuPNK8uLH7wY1eqG lnbjogbGVmdDsgdmVyd GwrOUyiZJmaU135YTLe cOrzTBQaaP0gBFAbwTJ mnTfpHN3tQJCofmguEc rNM9RBOMwjRMrQDXO6W 9DuNyk6FJKttCjwEY8r qIAgBAdkUv1hhZzlnPz pLY6vOUVvwysvBMTpzW 7fIZObuBEosMlhQF8tF GWzazxkc197UaZkPCW2 ZNEpiBLmS0WpvQ9uDhZ lOSPdPHAvO0JfpECyEZ iwP309EVkgXiZ6SDVpf sJsB3PdCWIabEmgFlW1 u7V9Mb6rCl3uFf8zJMh 6LY33GZ79vSLyt5P4cS N5E0PsRYGzdnvynwzpi JQ5NAHnWANkhV85uFOm DVnwYs5wc1P2w561QQT eACHcyO38Rh0zwWjzTB GvsOJNkE6pnvxll5rvn wefOfYkVLOqONe9MCi2 ZSNifVecWgVjPGO9EbW 1ZWY3hFOwvN4jxZvrgd twxE1cIfs+MzMgWWVhc uH4P8HnOyd9PKFloDdd WJ8vaYKlLKtyBn8hqGi wbSvcJB3xIJEhowpdET NzyG7dLVKvzVNkoWimP S6yKQComnmgt128PdBn TJD5ZWWakIMaJ1IksS0 fAoLwZRWxLMLsQ7HzxI RjEXokA805YGbeMkS6L HTtepEuV5EcXDKxzUjm AlQ8u0Z7Yg7NDZhzII5 8QQ58vHDzu7H8pOQ1M2 BaGWRmxbgtbkhfhZL7F RXhTFBfhO32zOHiVXad Zr5py2G2j599OOSsLKE yfV54Lz1rmSioCSUmeO ULcN1tznnjf3agkynfO bFgWLWxXIf5YNk3EOBz aNbgLgFiGOC5HcJ9TLZ 0oFIpcM8lcWrzzffhcU 9wOyc+EZNrEZWjx6Oeg 5LpEX90QV39X6GyAmkm dGFibGU+PHRhYmxlIHd pZHRoPScxMDAlJyBzdH mgBF0mTu0sLZQcHIOst IqzgBXbOiGgx9hlETYi XJlvRL2fsIkzC9TflYO 6LDXox2x5Km77B88gG1 JvdXA+KBPnlDP4dKN7o F9bEiXsVjJ2XVupU398 TbPnwXDfBvecq9jlw1o wrXn5FmOmELMctiSsfT rwBCU1u9TqBh41T79tP HdpZHRoPSIyMCUiIHZh yWzebc9qmD7aLy9+PGN gjTR3dKA7eE3dKgVdNm H2EWejG364UyCagPGkB zbqG32lD7CexOY+PHRy Qvk6BHBrgBskEW9bmAF jMVpzKy6bPHK1JnFxWn IjDXstH3JkIAYdlbgqv hpaeXZ7AMKlZXZpoF45 On5unGfxBr3mXKFjVMS 8PDBfgOZcT5SxgM1vGo WtZJTgUQSnG2OwiCGeU GtvF911ATkqUpX3CCFu edDeB0PiLRZsoOruTfH 7g0E6Nv9DfHkduRAlFW 4uAdNgYGg7I7AgRsd7X QJjoBvvZH9smIPcQLsz Eb8vlCsujEncXT3fFTQ ecesrf183ItTkv9ltWO HyqFYqAVlfKHA9A02aq 5B7BFMfDZZtIQA6sMB8 rG1xtUtqrgiwoVTnzJv gdmVydGljYWwtYWxpZ2 41ZADjkCsvGlLEGjc6O 0VuYzl7LILrvBoiYO5d aFIjSUpoJa8qhDhllUe kVM1oYJKjavtyv744Po Feq9akYGTyiKPnXMbzE WT5R59qv5X9QWLcMZQz LMW6mBU6gZ1mfImnbmn gbGVmdDsgdmVydGljYW geRVheB645OLJrjCeyH c7UJej4N8WnNzz2TVKd gVcvMW6jpQOzYAmcKj6 ooXvwtZutPB0yWUMfwm tos664GkNow4ndOTBrx BNgUGhuKLQ5K74le5X5 KPXyTPIjKLV0sXF5nK0 hbGlnbjogbGVmdDsgdm YerLxcWSfmCKaqR202C HRvcDsnPlBheWVyOjwv dGQ+MU77ln52U7CvVtc wJkq5IIOuVPO1lUC6rT 4qUKTpWJxrl3S2lIW8A 6JjyoKwhp0tm7jtEVSw ZTog (more content not included)... Normal [facility] Semen An/Cnton 11-05-2020 Crista/Transport Prob No Problems Normal Fish er [facility] Comment on above: Performed By: #### 1 [id number], [id number] ####[place] [address] Collect. Meth Masturbation Normal [facility] Comment on above: Performed By: #### 1 [id number], [id number] ####[place] [address] Days Abstained 4 day(s) Normal 2-5 [facility] Comment on above: Performed By: #### 1 [id number], [id number] ####[place] [id number] Graded Motility 3 Normal [facility] Comment on above: Result Comment: 0 - Non-Motile 1 - Very sluggis, no forward progression 2 - Forward progression present, but very slow 3 - Good forward progression with tail movements visualized 4 - Rapid forward progression with tail movements difficult to visualize Performed By: #### 1 [id number], [id number] ####[address] [address] Motile Sperm 44 % Low 60-100 [facility] Comment on above: Performed By: #### 1 [id number], [id number] ####[place] [id number] Semen Viscosity MAXIM Normal <=29 [facility] Comment on above: Performed By: #### 1 [id number], [id number] ####[place] [id number] [place] [address] Spec. Container Steril Container Normal [facility] Comment on above: Performed By: #### 1 [id number], [id number] ####[address] [address] Spec. Temp 21 DegC Normal 20-37 [facility] Comment on above: Performed By: #### 1 [id number], [id number] ####[place] [id number] Sperm Count 33 Million/mL Normal >=20 [facility] Comment on above: Result Comment: A Co ncentration Technique is used to evaluate all sperm counts <20 million. Performed By: #### 1 [id number], [id number] ####[place] [id number] Sperm pH 8.0 No Units Normal 7.2-8.9 [facility] Comment on above: Performed By: #### 1 [id number], [id number] ####[place] [id number] Volume Semen 0.9 mL Normal 0.7-6.5 [facility] Comment on above: Performed By: #### 1 [id number], [id number] ####[address] [address] WBC Semen 0 - 2 Invalid Interpretation Code [facility] Comment on above: Performed By: #### 1 [id number], [id number] ####[address] [address] Sperm Morphon 11-05-2020 Sperm Morph <20% abnormal sperms identified. Invalid Interpretation Code [facility] Comment on above: Order Comment: Order Added by Discern Expert. Performed By: #### 1 [id number], [id number] #### [facility] [address] [place] [address] Physician Orderon 10-31-2020 Physician Order [id number]#1.00CD:127 [facility] Vital Signs Date Time Vital Sign Value Performing Clinician Facility 05-28-2023 15:45-0500 Body height 177.8 cm Madelyn Breanne Other [facility] 05-28-2023 15:45-0500 Body mass index (BMI) [Ratio] 32.85 kg/m2 Madelyn Breanne Other [facility] 05-28-2023 15:45-0500 Body temperature 98.6 [degF] Madelyn Breanne Other [facility] Other 05-28-2023 15:45-0500 Body weight 103.87 kg Madelyn Breanne Other [facility] Other 05-28-2023 15:45-0500 Diastolic blood pressure 111 mm[Hg] Madelyn Breanne Other [facility] Other 05-28-2023 15:45-0500 Respiratory rate 18 /min Madelyn Breanne Other [facility] 05-28-2023 15:45-0500 SaO2% (BldA) [Mass fraction] 99 % Madelyn Breanne Other [facility] 05-28-2023 15:45-0500 Systolic blood pressure 156 mm[Hg] Madelyn Breanne Other [facility] Other 02-08-2023 15:00-0400 Body height 177.8 cm Earle Gore Other [facility] Other 02-08-2023 15:00-0400 Body mass index (BMI) [Ratio] 32.91 kg/m2 Earle Sofía Other [facility] Other 02-08-2023 15:00-0400 Body weight 104.06 kg Earle Gore Other [facility] Other 02-08-2023 15:00-0400 SaO2% (BldA) [Mass fraction] 100 % Earle Sofía Other [facility] Other Encounters Encounter Date Encounter Type Care Provider Facility Start: 07-12-2023 End: 07-13-2023 ambulatory Christina Martinez MD [facility] Start: 06-28-2023 End: 06-29-2023 ambulatory Christina Martinez MD [facility]: [facility] Start: 05-28-2023 End: 05-28-2023 ambulatory Madelyn Raymundo Other [facility] Start: 05-28-2023 Office outpatient vi sit 15 minutes [facility] Start: 05-24-2023 End: 05-25-2023 ambulatory Christina Martinez MD Facility: [facility] Start: 02-08-2023 End: 02-08-2023 ambulatory Earle Gore Other [facility] Start: 02-08-2023 Office consultation new/estab patient 60 min Earle Gore [facility] Start: 01-01-2023 End: 01-01-2023 ambulatory Amado Valladares Facility:[facility] Start: 01-01-2023 End: 01-01-2023 ambulatory PRODUCE SPECIALIST-C Madelyn Mims Work Phone: [facility] Work Phone: Start: 01-01-2023 End: 01-01-2023 Patient encounter procedure PRODUCE SPECIALIST-C Madelyn Mims Work Phone: [facility] [address] Work Phone: Start: 10-30-2022 End: 10-31-2022 ambulatory MADELYN MIMS Facility:[facility] Start: 10-28-2022 End: 10-29-2022 ambulatory MADELYN MIMS Facility:[facility] Start: 10-17-2022 End: 10-18-2022 ambulatory MADELYN MIMS Facility:[facility] Start: 08-27-2022 End: 09-17-2022 ambulatory MADELYNCORAL MIMS Facility:[facility] Start: 10-16-2018 End: 10-16-2018 Emergency department patient visit FLOYD VILLAFANA [facility] Procedures Date Procedure Procedure Detail Performing Clinician Start: 01-01-2023 XR pre/post mri xray PRODUCE SPECIALIST -C Madelyn Mims Work Phone: Start: 01-01-2023 MRI of cervical spin e without contrast PRODUCE SPECIALIST-C Madelyn Mims Work Phone: Start: 10-16-2018 ED NURSING COMMUNICATION FLOYD VILLAFANA Payers Date Payer Category Payer Self-pay 2022 Unknown 1987 Unknown [id number] 2.16.8 [id number] 1987 Unknown [id number] 2.16.84 [id number] 1987 Unknown [id number] 2.16.84 [id number] 1987 Unknown [id number] 2.16.84 [id number] 1987 Unknown [id number] 2.16.84 [id number] 1987 Unknown [id number] 2.16. [id number] 1987 Unknown [id number] 2.16. [id number] 1987 Unknown [id number] 2.16. [id number] 1959 Unknown [id number] Unknown [id number] 2.16.8 [id number] Social History Date Type Detail Facility Tobacco smoking status NMIS Unknown if ever smoked [facility] Work Phone: Start: 1985 Sex Assigned At Male F [facility] Sex Assigned At Sex Assigned At Bir th [facility] Evaluation note 05-28-2023 Note Date & [...] with diagnosis of hypertension (ICD-10 - I10) [facility] [employer] Other Evaluation note 02-08-2023 Note Date & [...] negative findings were considered in medical decision-making. [facility] Other Evaluation note Note Date & Type Note Facility Evaluation note No assessment information availa [facility] Work Phone: History general Narrative - Reported Note Date & Type Note Facility History general Narrative - Reported Type Medical History GERD [facility] Other Summary Purpose Family History No Family [...] and content) DATE CREATED AUTHOR 10/19/2018 [facility] DATE CREATED AUTHOR AUTHOR'S ORGANIZ ATION 02/03/2021 Lacho Tanner [facility] DATE CREATED AUTHOR AUTHOR'S ORGANIZ ATION 11/02/2022 [facility] DATE CREATED AUTHOR AUTHOR'S ORGANIZ ATION 01/07/2023 [facility] DATE CREATED AUTHOR AUTHOR'S ORGANIZ ATION 07/16/2023 [facility] Care Teams (unrecognized sec tion and content) Team Status: Active Member Role Status Dates DONNY Ewing Primary Care Provider Active Team Status: Inactive Member Role Status Dates Amado Valladares , Attending Provider Active Madelyn Mims NP-[place] Primary Care Provider Active Goals (unrecognized section [...] BE BASED ON THE PRIMARY CLINICAL RECORDS. [facility] [employer] [facility]. provides no warranty or guarantee of the accuracy or completeness of information in this document.
--- NOTE | 2023-07-29 14:32 | P.CN_ITS ---
Consult Note: HPI Data of Consult Patient: known to practice within the last 3 years Consult date: 05/24/23 Requesting Physician: Ofe Higgins NP Primary Care Provider: RAGHAVENDRA MIMS Consult Narrative Reason for consult: Left neck, shoulder, arm pain Narrative: 37yom who presents for evaluation. worsening pain throughout left neck that radiates into left shoulder and arm. began when lifting heavy object at work, felt pain throughout left neck. has tried various conservative measures, including provider directed home exercise program >6 weeks >3x/week, with limited benefit. has been worked up by neurology, with no acute findings on brain mri. cervical mri reviewed, which shows disc herniation at c5-6, as well as spondylosis in lower cervical spine. has utilized medrol dose pack and ibuprofen, with limited benefit. patient recently underwent left C5/6 C6/7 TFESI x 2 with 90% ongoing improvement cc:: CC: Ofe Higgins NP Review of Systems ROS Status of ROS 10 or more systems reviewed and unremark able except as noted in history and below Musculoskeletal Reports: neck pain Meds Home Medications and Allergies Home Medications Medication Instructions Recorded Confirmed Type metoprolol tartrate 50 mg tablet 50 mg PO Q12H 05/24/23 07/12/23 History Allergies Allergy/AdvReac Type Severity Reaction Status Date / Time No Known Drug Allergies Allergy Verified 07/12/23 06:55 Exam Narrative Exam Narrative: Psych-alert and oriented x 3.? Attentive and appropriate, constitutionally normal, displays normal mood and affect per situation.? There are no obvious deficits in memory, reasoning, or intellect.? Skin-no obvious rashes, bruising, or erythema noted to the patient's area of pain.? Extremities-upper extremities are warm with minimal edema and palpable pulses. Cervical- tenderness to palpation noted in the cervical spine and paraspinal musculature.? very mild pain is elicited with flexion, extension, and lateral rotation of the cervical spine.? improved ROM and negative facet loading Strength-unremarkable and within normal limits with the exception to the left biceps, triceps. Sensory-no notable sensory deficits in the bilateral upper extremities to touch or pinprick Coordination remains intact.? Gait remains non-antalgic. Constitutional Documenting provider has reviewed patient's vital signs: yes Common normals: no apparent distress, oriented x3, healthy appearing, alert and well nourished General appearance: cooperative HENMT Common normals: normocephalic, hearing grossly normal bilaterally and moist oral mucous membranes Head and scalp: normocephalic Eye Common normals: PERRL Pupil: PERRL Neck & C-Spine Common normals: full ROM General: normal visual inspection Chest Common normals: inspection of chest normal Respiratory Common normals: normal respiratory effort, no retractions and no use of accessory muscles Neuro Common normals: oriented x3, CN's II-XII intact bilaterally, moves all extremities, no focal motor deficits, no sensory deficits noted and deep tendon reflexes 2+ bilaterally Sensorium/orientation: alert Motor exam: strength 5/5 throughout and no movement abnormalities noted Psych Common normals: mental status grossly normal, thought process normal, cooperative, affect normal, speech normal and activity/motor behavior normal Speech: normal speech Thought process: normal thought process Results Additional Findings Additional findings: I have checked an OARRS report on this patient today and there are no aberrancies noted in the prescribing history.?? A drug screen was completed and reviewed within the last year, and if there has not been a drug screen completed we ordered one today to monitor higher risk, state monitored pain medication use. As part of providing excellent, safe, comprehensive care, the following was completed at our patient's visit: 1. A medication reconciliation and review to ensure accurate knowledge of current/active medications, including asking our patients to inform us about any pbyu-fsu-ckakkze medications or herbal remedies/nutritional supplements/alternative remedies. 2. A review to specifically ensure our patients have had annual screening for: elevated body mass index (BMI), tobacco use, screening for depression, and screening for unhealthy alcohol use. When screening is concerning, patients are provided with education and the specific recommendation to discuss the concerning health issue and treatment options with their primary care provider. Assessment and Plan Assessment and Plan (1) Cervical radiculopathy: (2) Cervical stenosis of spine: (3) Cervical spondylosis: (4) Cervical disc displacement: Plan DC celebrex, experienced dizziness continue heat PRN and NSAIDS PRN continue f/u with neurology f/u as needed
== END 2023-07-29 14:03 | disposition home or self-care (01) ==
LOC: PM 14:02
PROVIDERS: PCP Nurse Practitioner Family; Visit Provider Nurse Practitioner
DX: M54.12 Radiculopathy, cervical region (principal); M48.02 Spinal stenosis, cervical region; M47.812 Spondylosis without myelopathy or radiculopathy, cervical region; M50.20 Other cervical disc displacement, unspecified cervical region
CPT/HCPCS: G0463

== ENCOUNTER 2024-08-31 13:00 | Emergency (ER) | payer OTHER, SELFPAY ==
[2024-08-31 13:12] VITALS: BP 135/92; PULSE 76; TEMP 36.8; O2SAT 96; BMI 33.0
--- NOTE | 2024-08-31 13:18 | ED_ITS ---
HPI - Wound/Laceration General Chief Complaint: Wound/Laceration Stated Complaint: LACERATION - FINGER Time Seen by Provider: 08/31/24 13:05 Mode of arrival: walk-in History of Present Illness HPI narrative: Patient is a 38-year-old male who presents to the emergency department for crush injury to the left fifth finger. He states he smashed his fingertip with a hammer. He is right-hand dominant. This occurred at work. Bleeding is well- controlled at this time. No medications taken prior to arrival. He sustained a small laceration to the fingernail, dried blood noted to the ulnar aspect of the nailbed Related Data Home Medications ?Medication ?Instructions ?Recorded ?Confirmed metoprolol tartrate 50 mg tablet 50 mg PO Q12H 05/24/23 07/12/23 Previous Rx's ?Medication ?Instructions ?Recorded cephalexin 500 mg capsule 500 mg PO Q8H 5 days #15 caps 08/31/24 ketorolac 10 mg tablet 10 mg PO TID PRN pain #10 tabs 08/31/24 Allergies Allergy/AdvReac Type Severity Reaction Status Date / Time No Known Drug Allergies Allergy Verified 07/12/23 06:55 Review of Systems ROS Constitutional Denies: fever or chills Ears, nose, mouth, and throat Denies: throat pain or nasal congestion Cardiovascular Denies: chest pain Respiratory Denies: shortness of breath or cough Gastrointestinal Denies: nausea or vomiting Musculoskeletal Reports: extremity pain; Denies: back pain or neck pain Integumentary/Breast Denies: rash Neurological Denies: numbness in extremities or weakness in extremities Hematologic/Lymphatic Denies: easy bruising or easy bleeding PFSH PFS Social History Little interest or pleasure in doing things: not at all Feeling down, depressed, or hopeless: not at all Exam Narrative Exam Narrative: Gen.: Awake, alert, in no distress Head: Normocephalic, atraumatic ENT: Moist mucous membranes Respiratory: No respiratory distress Extremities: Normal flexion and extension at the DIP and PIP joints of the left fifth finger. Distal fingernail with a small area of dried blood laterally, no deep laceration or subcutaneous tissue exposure noted. No subungual hematoma of the fingernail. Nailbed is well adhered proximally. Psych: Normal mood and affect Neuro: No focal neuro deficit Skin: Warm, dry Constitutional Vital Signs, click to edit/add: Last Vital Signs Temp 98.2 F 08/31/24 13:12 Pulse 76 08/31/24 13:12 Resp 18 08/31/24 13:12 BP 135/92 H 08/31/24 13:12 Pulse Ox 96 08/31/24 13:12 O2 Del Method Room Air 08/31/24 13:12 Course Vital Signs Vital signs: Vital Signs Temperature 98.2 F 08/31/24 13:12 Pulse Rate 76 08/31/24 13:12 Respiratory Rate 18 08/31/24 13:12 Blood Pressure 135/92 H 08/31/24 13:12 Pulse Oximetry 96 08/31/24 13:12 Oxygen Delivery Method Room Air 08/31/24 13:12 Temperature 98.2 F 08/31/24 13:12 Pulse Rate 76 08/31/24 13:12 Respiratory Rate 18 08/31/24 13:12 Blood Pressure 135/92 H 08/31/24 13:12 Pulse Oximetry 96 08/31/24 13:12 Oxygen Delivery Method Room Air 08/31/24 13:12 MDM - Wound/Laceration MDM Narrative Medical decision making narrative: X-ray with possible debris noted at the surface of the skin, no evidence of fracture or dislocation. The finger was cleansed, no indication for suture placement. Patient placed on antibiotics for prophylaxis, short course of analgesics. He is neurovascularly intact pre and post dressing application. Follow-up with occupational health and return to the emergency department if symptoms change or worsen SUPERVISED APC VISIT, PHYSICIAN ATTESTATION: Based on the medical record the care appears appropriate. ? Medical Records Attestation: I reviewed the patient's medical records. Imaging Data XR finger: Attestation: I have reviewed the pertinent imaging results. Discharge Plan Discharge Chief Complaint: Wound/Laceration Clinical Impression: Crush injury to finger Patient Disposition: Home, Self-Care Time of Disposition Decision: 13:44 Condition: Good Prescriptions / Home Meds: New ketorolac 10 mg tablet 10 mg PO TID PRN (Reason: pain) Qty: 10 0RF cephalexin 500 mg capsule 500 mg PO Q8H 5 Days Qty: 15 0RF No Action metoprolol tartrate 50 mg tablet 50 mg PO Q12H Print Language: Kiswahili Instructions: Crush Injury (ED), Acute Wounds (ED) Referrals: [facility] [Outside] - As soon as possible
--- OUTSIDE RECORDS SUMMARY | 2024-08-31 13:30 | XMS_ITS | CCD ---
Author Organization [facility] CliniSyky Care Team Providers Care Computer System Validation Specialist Name Role Phone FLOYD VILLAFANA Primary Care Unavailable PRASANNA, MADELYN Admitting Unavailable PRASANNA, MADELYN Attending Unavailable PRASANNA, MADELYN Primary Care Unavailable FREDDY, DR NAKUL Keating Consulting Unavailable ZIEBER, DR MOE Romero Consulting Unavailable PRASANNA, MADELYN Consulting Unavailable PRASANNA, MADELYN Admitting Unavailable PRASANNA, MADELYN Attending Unavailable PRASANNA, MADELYN Primary Care Unavailable ZIJANEE, DR MOE Romero Consulting Unavailable PRASANNA, MADELYN Consulting Unavailable PRASANNA, MADELYN Admitting Unavailable PRASANNA, MADELYN Attending Unavailable PRASANNA, MADELYN Primary Care Unavailable PRASANNA, MADELYN Consulting Unavailable PRASANNA, MADELYN Admitting Unavailable PRASANNA, MADELYN Attending Unavailable PRASANNA, MADELYN Primary Care Unavailable Amado Valladares Admitting Unavailab Amado Go Attending Unavailab Madelyn Jeong Primary Care Unavailable DO Amado Valladares Attending Provider [phone] DONNY Mims Primary Care Provider [phone] Earle Gore Unavailable Madelyn Raymundo Unavailable Juan BRUNO, Christina Cagle Attending Unavailable Prasanna CUSTOMER GREETER-WET MIXER, Madelynaquilino Guardado Primary Car e Unavailable Juan BRUNO, Christina Cagle Attending Unavailable Juan BRUNO, Christina Cagle Attending Unavailable Chinedu CUSTOMER GREETER-WET MIXER, Mary Tate Attending Unavailable Prasanna CUSTOMER GREETER-WET MIXER, Madelyn Ariela Debby Primary Car e Unavailable Michael Martin MD Primary Care Provider [phone] Burt HANLEY, Ariel Unavailable Mirna Masterson Unavailable MIRNA CORONADO Attending Unavailable ARIEL MURPHY Referring Unavailable KAYLENE MORALES Attending Unavailable ARIEL MURPHY Attending Unavailable ARIEL MURPHY Attending Unavailable Medications Current Medications Medication Drug Class(es) Dates Sig (Normalized) Sig (Original) acetaminophen 325 mg oral tablet (3 sources) take 2 tablets by mouth every six hours as needed acetaminophen (Tylenol) 325 MG tablet Take 650 mg by mouth every 6 (six) hours if needed Active amoxicillin 875 mg / clavulanate 125 mg oral tablet (1 source) Penicillin-class Antibacterial Start: 05-28-2023 take 1 tablet by mouth every twelve hours Amoxicillin-Pot Clavulanate 875-125 MG 1 tablet Orally every 12 hrs for 10 day(s) May, Active celecoxib 200 mg oral capsule (4 sources) Nonsteroidal Anti-inflammatory Drug Start: 05-28-2023 take 1 capsule by mouth in the morning celecoxib (CeleBREX) 200 MG capsule Take 200 mg by mouth in the morning and 200 mg before bedtime. 05/28/2023 Active fluticasone propionate 0.05 mg/actuat metered dose nasal spray (4 sources) Corticosteroid Start: 05-28-2023 take 2 spray(s) nasal route once daily fluticasone (Flonase) 50 MCG/ACT nasal spray USE 2 SPRAYS IN EACH NOSTRIL ONCE DAILY FOR 14 DAYS 05/28/2023 Active metoprolol tartrate 50 mg oral tablet (5 sources) beta-Adrenergic Delgado Start: 07-27-2023 take 1 tablet by mouth twice daily at mealtime metoprolol tartrate (Lopressor) 50 MG tablet TAKE 1 TABLET BY MOUTH TWICE A DAY WITH FOOD FOR 30 DAYS 07/27/2023 Active take 1 tablet by yvonne th every twelve hours Metoprolol Tartrate 50 MG 1 tablet with food Orally Twice a day Active tiZANidine 4 mg oral tablet (5 sources) Central alpha-2 Adrenergic Agonist Start: 03-10-2023 take 2 tablets by mouth once daily at bedtime tiZANidine (Zanaflex) 4 MG tablet TAKE 2 TABLETS BY MOUTH EVERY DAY AT BEDTIME 03/10/2023 Active Problems Active Problems Problem Classification Problem Date Documented Date Episodic/Chronic Adjustment disorders (3 sources) Stress; Translations: [Reaction to severe stress, unspecified] Onset: 12-03-2023 12-03-2023 Chronic Conditions associated with dizziness or vertigo (4 sources) Benign paroxysmal vertigo, unspecified ear; Translations: [BENIGN PAROXYSMAL VERTIGO UNS EAR] Onset: 08-27-2022 Episodic Essential hypertension (7 sources) Elevated blood pressure; Translations: [Essential (primary) hypertension] Onset: 12-03-2023 Chronic Other connective tissue disease (1 source) Other symptoms and signs involving the musculoskeletal system; Translations: [Other symptoms and signs involving the musculoskeletal system] Onset: 01-01-2023 Episodic Other ear and sense organ disorders (5 sources) Bilateral tinnitus; Translations: [Tinnitus, bilateral] Onset: 12-03-2023 12-03-2023 Episodic Other nervous system disorders (2 sources) Chronic pain; Translations: [Other chronic pain] Chronic Other nervous system disorders (1 source) Other chronic pain Chronic Other nervous system disorders (4 sources) Paresthesia of skin; Translations: [PARESTHESIA OF SKIN] Onset: 10-30-2022 Episodic Other upper respiratory infections (1 source) Acute sinusitis, unspecified Episodic Residual codes; unclassified (2 sources) Transient alteration of awareness; Translations: [Transient alteration of awareness] 05-29-2024 Episodic Spondylosis; intervertebral disc disorders; other back problems (11 sources) Cervical spondylosis; Translations: [Spondylosis without myelopathy or radiculopathy, cervical region] Onset: 12-03-2023 Chronic Spondylosis; intervertebral disc disorders; other back problems (18 sources) Cervicalgia; Translations: [Cervical radiculopathy] Onset: 10-17-2022 Episodic Unclassified (1 source) Laceration without foreign body of left little finger without damage to nail, initial encounter Onset: 10-16-2018 Past or Other Problems Problem Classification Problem Date Documented Da te Episodic/Chronic Other connective tissue disease (3 sources) Bilateral weakness of upper limbs; Translations: [Other symptoms and signs involving the musculoskeletal system] Onset: 12-03-2023 12-03-2023 Episodic Other gastrointestinal disorders (3 sources) Irritable bowel syndrome; Translations: [Irritable bowel syndrome without diarrhea] Onset: 11-29-2023 Resolved: 11-29-2023 11-29-2023 Chronic Other gastrointestinal disorders (3 sources) Chronic constipation; Translations: [Other constipation] Onset: 11-29-2023 Resolved: 11-29-2023 11-29-2023 Episodic Other nervous system disorders (3 sources) Paresthesia; Translations: [Paresthesia of skin] Onset: 12-03-2023 12-03-2023 Episodic Other upper respiratory disease (3 sources) Allergic rhinitis; Translations: [Allergic rhinitis, unspecified] Onset: 11-29-2023 Resolved: 11-29-2023 11-29-2023 Chronic Substance-related disorders (3 sources) Substance abuse; Translations: [Other psychoactive substance abuse, uncomplicated] Onset: 11-29-2023 Resolved: 11-29-2023 11-29-2023 Chronic Unclassified (1 source) Contact with and (suspected) exposure to covid-19 Z20.822 Results Test Name Value Interpretation Reference Range Facility ED Clinical Summaryon 2023 ED Clinical Summary [address] [address] ED Clinical Summary Person Information Name: Andreas Hernandes/[facility] Age: 37 Years : 1985 Sex: Male PCP: Madelyn Dinh Marital Status: Phone: Race: White Ethnicity: Not or Language: Romanian Visit Reason: Eye pain; eye oain Acuity: 4 Enc Type: Emergency Med Service: Emergency Medicine Arrival: 09/09/2023 07:29:57 Discharge: 09/09/2023 09:07:00 LOS: 000 01:38 Checkin: 09/09/2023 07:29:57 Checkout: 09/09/2023 09:07:00 Dispo Type: Home or Self Care Address: [address] [place] [phone] Provider Notes: History of Present Illness Patient is an alert, oriented 37-year-old male presenting to the emergency department with complaint of an injury to his right eye. ?Patient reports he was pulling stuff out of the back of his truck and he thinks the ladder came?out catching his right eye.? Patient reports that actually busted out the lens of his glasses as well. Review of Systems As reviewed in the HPI. All other systems reviewed are negative or normal. Physical Exam CONSTITUTIONAL: [well appearing in no acute distress] SKIN: [Warm, dry, and intact without rash?with exception to a?approximate 1 cm?laceration?to the medial aspect of the right eyelid.] EYES: [extraocular movements are grossly intact, clear conjunctiva] HENT: [Normocephalic, atraumatic, moist mucus membranes] NECK: [no obvious swelling, normal range of motion] PULMONARY: [normal chest rise and fall, no respiratory distress or stridor CARDIOVASCULAR: [regular rate, distal extremities are warm and well perfused] GASTROINSTESTINAL: [nondistended, non-tender] GENITOURINARY: [deferred] NEUROLOGIC: [normal speech, moves all extremities] MUSCULOSKELETAL: [no gross deformities, atraumatic] PSYCHIATRIC: [normal mood and affect] ED Physician Procedures Entered On: 09/09/2023 8:54 EDT Performed On: 09/09/2023 8:54 EDT by Mary Rose Laceration Repair Laceration Wound/Simple : Face/Ears/Eyelids/N ose/Lips, <2.5cm Mary Rose - 09/09/2023 8:54 EDT Presedation Patient Assessment Procedurist Managing Sedation : No sedation planned Mary Rose - 09/09/2023 8:54 EDT Diagnosis: 1:Laceration of eyelid Problems No Problems Documented Smoking Status: Smoking Status Never (less than 100 in lifetime) Functional Status: Sensory Deficits: History of Falls: Mobility Assistance Prior to Admission: ADLs: Current Level of Assistance for Self-Care/Mobility: Cognitive Status: Allergies No Known Allergies Laboratory or Other Results This Visit (last charted value for your 09/09/2023 visit) No Laboratory or Other Results This Visit Measurements: Height: Weight: 105.3 kg Blood Pressure: /105 mmHg BMI: Procedures No Procedures Documented Immunizations No Immunizations Documented This Visit Final Med List: No Medications Documented Care Team Members: Attending Physician: Mary Rose Consulting Physician: Referring Physician: Provider Role Assigned Unassigned Mary Rose ED MidLevel 09/09/2023 08:31:19 Lindsay Hodges ED Nurse 09/09/2023 08:40:08 Follow up: With: Address: When: Him Assistant or child support investigator Comments: Keep wound clean and dry. Do not pick at the skin glue as it will dissolve and fall off on its own. If you start seeing signs of infection including redness, swelling, purulent drainage, and/or fever please return to the emergency department or go to your primary care provider. If your blurred vision continues I would definitely follow-up with your airplane cleaner or child support investigator for reevaluation. You can apply an ice pack to the eye to help with some of the swelling. He can also take Tylenol and/or ibuprofen for any pain/discomfort. Please return to the emergency department for new or worsening symptoms. Discharge Orders: Discharge Patient 09/09/23 8:50:00 EDT, Discharge to Home, Self Patient Education Information: Laceration, Face: Skin Glue [facility] Poison Help line: . [facility] Hotline: [place] Tobacco Quit Line: [place], [place]) [address]: [phone] [place], [place]) [address]: [phone] [facility] [address] [place], [place]: [phone] [facility] ED Note-Physicianon 09-09-19 ED Note-Physician Chief Complaint Pt complains of eye pain. Pt states he was getting a ladder out of truck and ladder went through glasses and something cut his eyelid History of Present Illness Patient is an alert, oriented 37-year-old male presenting to the emergency department with complaint of an injury to his right eye. Patient reports he was pulling stuff out of the back of his truck and he thinks the ladder came out catching his right eye. Patient reports that actually busted out the lens of his glasses as well. Review of Systems As reviewed in the HPI. All other systems reviewed are negative or normal. Physical Exam CONSTITUTIONAL: [well appearing in no acute distress] SKIN: [Warm, dry, and intact without rash with exception to a approximate 1 cm laceration to the medial aspect of the right eyelid.] EYES: [extraocular movements are grossly intact, clear conjunctiva] HENT: [Normocephalic, atraumatic, moist mucus membranes] NECK: [no obvious swelling, normal range of motion] PULMONARY: [normal chest rise and fall, no respiratory distress or stridor CARDIOVASCULAR: [regular rate, distal extremities are warm and well perfused] GASTROINSTESTINAL: [nondistended, non-tender] GENITOURINARY: [deferred] NEUROLOGIC: [normal speech, moves all extremities] MUSCULOSKELETAL: [no gross deformities, atraumatic] PSYCHIATRIC: [normal mood and affect] Vitals & Measurements T: 36.9 ?C (Oral) HR: 74 (Peripheral) RR: 16 BP: 155/105 SpO2: 96% HT: 177 cm WT: 105.3 kg (Dosing) Additional Vitals No qualifying data available. Procedure No qualifying data available. ASA Documentation Laceration Repair Procedure Laceration length/type: [_1 cm/linear__] After inspection and cleaning, the laceration was repaired with sterile skin adhesive. There was no evidence of nerve, vessel, tendon injury or foreign body. There was no evidence of foreign body. There was adequate skin approximation and cosmetic result without complication. Medical Decision Making MEDICAL DECISION MAKING Number and Complexity of Problems Differential Diagnosis: _Including but not limited to laceration of eyelid Treatment and Disposition ED Course: _ Patient is an alert, oriented 37-year-old male presenting to the emergency department with complaint of an injury to his right eye. Patient reports he was pulling stuff out of the back of his truck and he thinks the ladder came out catching his right eye. Patient reports that actually busted out the lens of his glasses as well. On evaluation I do note that the right eyelid has an approximate 1 cm superficial laceration towards the medial aspect. EOM's grossly intact. Good pupillary response noted. Sclera and conjunctiva are without erythema or edema. That upper eyelid however is beginning to swell because of the trauma. I did give patient the option to allow it to just heal on its own versus applying skin glue. Patient's concern is that it may get dirty or infected so he wanted to be able to have it covered. I did recommend to use the skin glue at this time. Patient was very agreeable. Please refer to procedure note above. Patient tolerated well. Plan to discharge home with the following discharge instructions: Keep wound clean and dry. Do not pick at the skin glue as it will dissolve and fall off on its own. If you start seeing signs of infection including redness, swelling, purulent drainage, and/or fever please return to the emergency department or go to your primary care provider. If your blurred vision continues I would definitely follow-up with your airplane cleaner or child support investigator for reevaluation. You can apply an ice pack to the eye to help with some of the swelling. He can also take Tylenol and/or ibuprofen for any pain/discomfort. Please return to the emergency department for new or worsening symptoms. Patient verbalized understanding had no further questions or concerns. All were agreeable with this plan of care. Shared decision making: _The results of pertinent diagnostic studies and exam findings were discussed. The patient?s provisional diagnosis and plan of care were discussed with the patient and present family. The patient and/or present family expressed understanding of the diagnosis and plan. The nurse was instructed to provide written instructions and appropriate follow-up information. The patient understands their need and responsibility to obtain additional follow-up as instructed. The risks of medications administered and prescribed were discussed with the patient and family present. Code status: _Full code Assessment/Plan 1. Laceration of eyelid Orders: Discharge Patient Refresh vitals and sections below: Problem List/Past Medical History Ongoing No qualifying data Historical No qualifying data Medications Inpatient No active inpatient medications Home No active home medications Allergies No Known Allergies Social History Tobacco Never (less than 100 in lifetime) Use:. Diagnostic Results (more content not included)... Normal [facility] COVID + FLU Quick Testingon 05-28-2023 SARS-CoV-2 (COVID-19) RNA PEDRO+probe Ql (Unsp spec) Negative [facility] Other COVID + FLU Quick Testing Negative [facility] Other XR pre/post mri xrayon 01-01 XR pre/post mri xray [facility] [place] [address] [place], [place] [id number] MRI Report Signed Patient: Andreas Hernandes MR#: [id number] 30 : 1985 Acct:[id number] Age/Sex: 37 / M ADM Date: 01/01/23 Loc: [facility]CM[facility] Room: Type: [facility] Attending Dr: Amado Valladares DO Copies to: Amado Valladares DO Ordering Provider: Amado Valladares DO Date of Service: 01/01/23 MR/MR cervical spine wo con: [id number] ([id number]) XR/XR pre/post mri xray: post MRI cervical [...] [place] M.D.01/01/2023 3:26 PM Dictation Location: [facility]14 Transcribed By: [facility] 01/01/23 152 Dictated By: Bean Hill II, MD 01/01/23 152 Signed By: 01/01/23 152 [facility] CTA NECK WO W CONon 10-31-19 23 CTA NECK WO W CON EXAMINATION: CTA [...] by: MOE PARNELL Date: 2022-10-30 09:17 Normal [facility] MRI BRAIN WO W CONon 023 MRI [...] MOE PARNELL Date: 2022-10-28 09:[address] [facility] XR CSPINE 2_3 VIEWSon 2022 XR [...] NAKUL HAYES Date: 2022-10-28 07:[address] [facility] XR FOREIGN BODY EYEon 2022 XR FOREIGN BODY EYE EXAMINATION: XR FOREIGN BODY EYE HISTORY: Foreign body in eye COMPARISON: No relevant comparison available. FINDINGS: ORBITS: Negative for a metallic foreign body. OTHER: Negative. IMPRESSION: No metallic foreign body in the orbits Electronically authenticated by: NAKUL HAYES Date: 2022-10-28 07:[address] [facility] JULIAN DIRECTon 10-19-2022 JULIAN Direct Negative Normal Negative [facility] Comment on above: Performed By: #### A NAD ####[facility] [address] [address]Dr[address] Carl Gama ANTISTREPTOLYSIN O AB (ASO)o n 10-18-2022 Antistreptolysin O Ab 86.9 IU/mL Normal 0.0-200.0 [facility] Comment on above: Performed By: #### A SOAB #### [facility] [address] [address] [address] Carl Gama RHEUMATOID FACTORon 10-19-19 RA Latex Turbid. <10.0 Normal <14.0 [facility] Comment on above: Performed By: #### R F ####[facility] [address] [address]Dr. Carl Gama CBC AUTO DIFFon 10-17-2022 BASO # 0.0 103/ul Normal 0.0-0.1 [facility] Comment on above: Performed By: #### C BC #### [facility] [address] [place] [address] Dr. Carl Gama Basophils/100 WBC (Bld) 0.6 % Normal 0.2-2.0 [facility] Comment on above: Performed By: #### C BC #### [facility] [address] [place] [address] Dr. Carl Gama EO # 0.1 103/ul Normal 0.0-0.7 [facility] Comment on above: Performed By: #### C BC #### [facility] [address] [place] [address] Dr. Carl Gama Eosinophils/100 WBC (Bld) 2.1 % Normal 0.9-7.0 [facility] Comment on above: Performed By: #### C BC #### [facility] [address] [place] [address] Dr. Carl Gama Erythrocyte distribution width (RBC) [Ratio] 13.2 % Normal 11.0-15.0 [facility] Comment on above: Performed By: #### C BC #### [facility] [address] [place] [address] Dr. Carl Gama Hematocrit (Bld) [Volume fraction] 44.9 % Normal 42.0-54.0 [facility] Comment on above: Performed By: #### C BC #### [facility] [address] [place] [address] Dr. Carl Gama Hemoglobin (Bld) [Mass/Vol] 15.2 g/dL Normal 14.0-18.[address] [facility] Comment on above: Performed By: #### C BC #### [facility] [address] [place] [address] Dr. Carl Gama IG # 0.02 10e3/ul Normal 0.00-0.03 [facility] Comment on above: Performed By: #### C BC #### [facility] [address] [place] [address] Dr. Carl Gama IG % 0.4 % Normal 0.0-0.5 [facility] Comment on above: Performed By: #### C BC #### [facility] [address] [place] [address] Dr. Carl Gama LYMPH # 1.5 103/ul Normal 1.2-3.8 [facility] Comment on above: Performed By: #### C BC #### [facility] [address] [place] [address] Dr. Carl Gama Lymphocytes/100 WBC (Bld) 32.2 % Normal 20.5-60.0 [facility] Comment on above: Performed By: #### C BC #### [facility] [address] [place] [address] Dr. Carl Gama MANUAL DIFF REQ NO Normal [facility] Comment on above: Performed By: #### C BC #### [facility] [address] [place] [address] Dr. Carl Gama MCH (RBC) [Entitic mass] 28.4 pg Normal 25.9-34.0 [facility] Comment on above: Performed By: #### C BC #### [facility] [address] [place] [address] Dr. Carl Gama MCHC (RBC) [Mass/Vol] 33.9 g/dL Normal 29.9-35.2 [facility] Comment on above: Performed By: #### C BC #### [facility] [address] [place] [address] Dr. Carl Gama MCV (RBC) [Entitic vol] 83.9 fL Normal 80.0-94.0 [facility] Comment on above: Performed By: #### C BC #### [facility] [address] [place] [address] Dr. Carl Gama MONO # 0.4 103/ul Normal 0.3-0.8 [facility] Comment on above: Performed By: #### C BC #### [facility] [address] [place] [address] Dr. Carl Gama Monocytes/100 WBC (Bld) 9.0 % Normal 1.7-12.0 [facility] Comment on above: Performed By: #### C BC #### [facility] [address] [place] [address] Dr. Carl Gama NEUT # 2.7 103/ul Normal 1.4-6.5 [facility] Comment on above: Performed By: #### C BC #### [facility] [address] [place] [address] Dr. Carl Gama Neutrophils/100 WBC (Bld) 55.7 % Normal 43.0-75.0 [facility] Comment on above: Performed By: #### C BC #### [facility] [address] [place] [address] Dr. Carl Gama Platelet mean volume (Bld) [Entitic vol] 8.6 fL Critically low 9.5-13.5 [facility] Comment on above: Performed By: #### C BC #### [facility] [address] [place] [address] Dr. Carl Gama PLT 321 103/ul Normal 150-[address] [facility] Comment on above: Performed By: #### C BC #### [facility] [address] [place] [address] Dr. Carl Gama RBC 5.35 106/ul Normal 4.70-6.[address] [facility] Comment on above: Performed By: #### C BC #### [facility] [address] [place] [address] Dr. Carl Gama WBC 4.8 103/ul Normal 4.0-11.[address] [facility] Comment on above: Performed By: #### C BC #### [facility] [address] [place] [address] Dr. Carl Gama CRPon 10-17-2022 CRP [Mass/Vol] mg/L Normal <=1.0 [facility] Comment on above: Performed By: #### U TIBURCIO, CMP, CRP #### [facility] [address] [place] [address] Dr. Carl Gama GLYCOHEMOGLOBIN A1Con 04-29- 2023 ADA RECOMMENDATION SEE BELOW Normal [facility] Comment on above: Result Comment: ADA RECOMMENDED LIMIT 4.0 - 6.0 ADA THERAPEUTIC TARGET < 7.0 ACTION SUGGESTED > 7.0 Performed By: #### A 1C #### [facility] [address] [place] [address] Dr. Carl Gama HbA1c (Bld) [Mass fraction] 5.7 % Normal 4.5-6.2 [facility] Comment on above: Performed By: #### A 1C #### [facility] [address] [address] [address] Carl Gama PROF 14(COMP METB)on 023 Albumin [Mass/Vol] 3.8 g/dL Normal 3.4-5.0 [facility] Comment on above: Performed By: #### U TIBURCIO, CMP, CRP #### [facility] [address] [place] [address] Dr. Carl Gama Albumin/Globulin [Mass ratio] 1.1 {ratio} Normal [facility] Comment on above: Performed By: #### U TIBURCIO, CMP, CRP #### [facility] [address] [place] [address] Dr. Carl Gama ALP [Catalytic activity/Vol] 58 U/L Normal 46-116 [facility] Comment on above: Performed By: #### U TIBURCIO, CMP, CRP #### [facility] [address] [place] [address] Dr. Carl Gama ALT [Catalytic activity/Vol] 72 U/L Critically high 16-63 [facility] Comment on above: Performed By: #### U TIBURCIO, CMP, CRP #### [facility] [address] [address] [address] Carl Gama Anion gap [Moles/Vol] 13.2 mmol/L Normal [facility] Comment on above: Performed By: #### U TIBURCIO, CMP, CRP #### [facility] [address] [address] [address] Carl Gama AST [Catalytic activity/Vol] 30 U/L Normal 15-37 [facility] Comment on above: Performed By: #### U TIBURCIO, CMP, CRP #### [facility] [address] [address] [address] Carl Gama Bilirubin [Mass/Vol] 0.6 mg/dL Normal 0.2-1.0 [facility] Comment on above: Performed By: #### U TIBURCIO, CMP, CRP #### [facility] [address] [address] [address] Carl Gama Calcium [Mass/Vol] 8.5 mg/dL Normal 8.5-10.1 [facility] Comment on above: Performed By: #### U TIBURCIO, CMP, CRP #### [facility] [address] [address] [address] Cral Gama Chloride [Moles/Vol] 107 mmol/L Normal 98-107 [facility] Comment on above: Performed By: #### U TIBURCIO, CMP, CRP #### [facility] [address] [address] [address] Carl Gama CO2 [Moles/Vol] 25.7 mmol/L Normal 21.0-32.0 [facility] Comment on above: Performed By: #### U TIBURCIO, CMP, CRP #### [facility] [address] [address] [address] Carl Gama Creatinine [Mass/Vol] 0.95 mg/dL Normal 0.70-1.30 [facility] Comment on above: Performed By: #### U TIBURCIO, CMP, CRP #### [facility] [address] [address] [address] Carl Gama EGFR-AF SAO TOMEAN >60 Normal >=[address] [facility] Comment on above: Performed By: #### U TIBURCIO, CMP, CRP #### [facility] [address] [address] [address] Carl Gama EGFR-NON AF SAO TOMEAN >60 Normal >=60 [facility] Comment on above: Performed By: #### U TIBURCIO, CMP, CRP #### [facility] [address] [address] [address] Carl Gama Globulin (S) [Mass/Vol] 3.4 g/dL Normal [facility] Comment on above: Performed By: #### U TIBURCIO, CMP, CRP #### [facility] [address] [address] [address] Carl Gama Glucose [Mass/Vol] 117 mg/dL Normal [facility] Comment on above: Performed By: #### U TIBURCIO, CMP, CRP #### [facility] [address] [place] [address] Dr. Carl Gama Performed By: #### A 1C #### [facility] [address] [address] [address] Carl Gama Potassium [Moles/Vol] 3.9 mmol/L Normal 3.5-5.1 [facility] Comment on above: Performed By: #### U TIBURCIO, CMP, CRP #### [facility] [address] [place] [address] Dr. Carl Gama Protein [Mass/Vol] 7.2 g/dL Normal 6.4-8.2 [facility] Comment on above: Performed By: #### U TIBURCIO, CMP, CRP #### [facility] [address] [place] [address] Dr. Carl Gama Sodium [Moles/Vol] 142 mmol/L Normal 136-145 [facility] Comment on above: Performed By: #### U TIBURCIO, CMP, CRP #### [facility] [address] [place] [address] Dr. Carl Gama Urea nitrogen [Mass/Vol] 7.0 mg/dL Normal 7.0-18.0 [facility] Comment on above: Performed By: #### U TIBURCIO, CMP, CRP #### [facility] [address] [place] [address] Dr. Carl Gama Urea nitrogen/Creatinine [Mass ratio] 7.4 mg/mg Normal [facility] Comment on above: Performed By: #### U TIBURCIO, CMP, CRP #### [facility] [address] [place] [address] Dr. Carl Gama URIC ACID SERUMon 10-17-2022 Urate [Mass/Vol] 5.2 mg/dL Normal 3.5-7.2 [facility] Comment on above: Performed By: #### U TIBURCIO, CMP, CRP #### [facility] [address] [place], [place] [address] Dr. Carl Gama Semen Ashley/Derrick 02-03-2021 Crista/Transport Prob No Problems Normal [facility] Comment on above: Performed By: #### 1 [id number], [id number] #### [facility] [address] [place] [address] Collect. Meth Masturbation Normal [facility] Comment on above: Performed By: #### 1 [id number], [id number] #### [facility] [address] [id number] Days Abstained 3 day(s) Normal 2-5 [facility] Comment on above: Performed By: #### 1 [id number], [id number] #### [facility] [address] [place] [address] Graded Motility 2 Abnormal [facility] Comment on above: Result Comment: 0 - Non-Motile 1 - Very sluggis, no forward progression 2 - Forward progression present, but very slow 3 - Good forward progression with tail movements visualized 4 - Rapid forward progression with tail movements difficult to visualize Performed By: #### 1 [id number], [id number] #### [facility] [address] [place] [address] Motile Sperm 13 % Low 60-100 [facility] Comment on above: Result Comment: A [...] or Non-motile sperm. Performed By: #### 1 [id number], [id number] #### [facility] [address] [place] [address] Semen Viscosity 810 minute(s) High <=29 [facility] Comment on above: Performed By: #### 1 [id number], [id number] #### [facility] [address] [place] [address] Spec. Container Steril Container Normal [facility] Comment on above: Performed By: #### 1 [id number], [id number] #### [facility] [address] [place] [address] Spec. Temp 23 DegC Normal 20-37 [facility] Comment on above: Performed By: #### 1 [id number], [id number] #### [facility] [address] [place] [address] Sperm Count 24 Million/mL Normal >=20 [facility] Comment on above: Result Comment: A Co ncentration Technique is used to evaluate all sperm counts <20 million. Performed By: #### 1 [id number], [id number] #### [facility] [address] [place] [address] Sperm pH 8.0 No Units Normal 7.2-8.9 [facility] Comment on above: Performed By: #### 1 [id number], [id number] #### [facility] [address] [place] [address] Volume Semen 3.3 mL Normal 0.7-6.5 [facility] Comment on above: Performed By: #### 1 [id number], [id number] #### [facility] [address] [place] [address] WBC Semen 1 - 3 Invalid Interpretation Code [facility] Comment on above: Performed By: #### 1 [id number], [id number] #### [facility] [address] [place] [address] Sperm Morphon 02-03-2021 Sperm Morph <20% abnormal sperms identified. Invalid Interpretation Code [facility] Comment on above: Order Comment: Order Added by Discern Expert. Performed By: #### 1 [id number], [id number] #### [facility] [address] [place] [address] Coding Summary.on 01-31-2021 Coding Summary. CD:[id number] ZTn8vXl+PGhlYWQ+PE1 VWVJsE79okQAuzI7SC7 rSWQ6PXQKRURKTYP1BW T5qrYW7JDdlX1TpibFa EgarwTYcXD86YIs5KHJ 1gIbzXKlbdT3lnNOhL9 s3HxMwDA55hR39NPqqS FLtLlW2TaDwntagdMNi U9tlZnWvwYJpBgw+PHR hYmxlIHdpZHRoPScxMD KvExSjoTpqLZ1sXf8vE GVyLWNvbGxhcHNlOiBj r6cpBAFcWOqlNC6jxHi vN5UinAM3LNXcd4k3Iz 48dHI+XNRyVWN2gXwcP Obss407DoZrw4ceZDB9 qOCkASfdBHG7C55yo5Q 6WEDdXOYwMNE8cZA7lL 6mfQgmnzpzM0NlkMKgQ qS7YUX5zDGktJ1jkZgv aoctfU8yZqo+B78LCT7 GMMQQZD4LVnq2K0FsTh wvdHI+IR95MKQnGP71r DSunRUah2vqmKp8KvPt JLRuSFG0cIvaBWpsl4B qRNMbL80rbBHul3D7EE EoxOdrwOFeDcGxqPM7q A7aWJrcporxd5sozcoa Clglc9udsh62hS98Z08 vTXhrDAVoYAN6OMCuRE PazBtwck1zzQ2fKo5+I Mydq3owm2uwcUr9VrCp ORQzkrAevVueFWQ6z1C kPn19A8GwkLbyq5UbDd g1ym35vIAdv3E5cSD9K IsuUHJjxE9yFIzpWxG8 ZSFiCdMiwX20xBGnHRg fZh9gaCijjNieNO2rEB GgnxvqAVKchQ0lZDGnd JHuyGpoHF3lSTHyhgpo h629UiNnUXC7ICCcqAE fT2NcxP9yNjPhZLFnEI MmE6DsgPJaZXydA745P RwzGiR6UVJmqnLoX1Jc VLJcoDlkKdB6s5E2Ub7 Yp1QoydqiZQT8XNloIP Z4PvMlGeYpTdW1R1RmQ ok7KKBtzOhlRZ2tI7Ld BRSuktwyqxvmhLO4HWZ oXPQscL23oODrENnsOc 3cn1M7x027VZUiHJDcd D29Zp5ynPbcPGFzjOMJ aK4cpbeae7lnezzhTuP xNQOyDAq0FGz7CWIvvX ynOjJwVTB2LcM2RTM2f JJmfL3mkQhlczlwhC1x Oyc+J02kmK0cRUL2SZP 4etvfSMBbyfReHI41ZC 77P9RrIibbyIXruOX+P NMhgnJerWycLL1jOxVp f4hpn9VjIZszU3NcMFQ pVJttGke4UNMcETH2mN V8eJ2pAGVdANdpj3W1n SX8D9FuesPlvd6gz4ts DZToHCpwJ89qhPAsv7G 9APYelUD0NFUnkQgkQl OxuH01Awe+PGNvbGdyb 0JyKjhtk8smv0uqtRl2 IjMwJSIgdmFsaWduPSJ 3m9OpWj59H95zUIndNJ RoPSIxNSUiIHZhbGlnb u2snX4bEc3+PGNvbCB3 jAA4dK4lZQXcMuQ6VAj wX450IwIrqYWkFsxeq0 ozt6rhtRw2OoLaYLLtp uSbdHjyHRF8c2JaTk39 U55jOErvAAHrZQVzYTZ pNRAnwKeypx3wvY0pFx 8+NQ3ix4htsz03zN42r HI+FKAkFCH8uKzpOHev TNZcaI2pXOguEwG2UKP gZzCybP78bZJnEJqoRy 7bmIdrvAjdNK4fURRch nnnn971TsXqu2ehNRXt yOKnNCepBVJ5O43ip8Q 9KYLdNEPhJUZ3jNW4fG 1hbGlnbjogbGVmdDsgd aFcvTfsWLihLLqmM685 IHRvcDsnPlBhdGllbnQ zAjIpJAt6U2YrAed1MB IszFayWR1huXYlYMhkM f8ziIvtlYrxVN9vZSHv mudye885FqOvc0urWFF raBFwWYdfATK7E50gm4 K2VGTeUKMsIDN3iPH1g S4ruSmcielizSKnoLul vqGyhBymPLweSAskE59 6IHRvcDsnPkJpcnRoIE UumUZ5LT05IY33uCEme 8I9sVJ8Z2TrNNCefuts dlysiCZ5JKJaUDClrF2 9Sc5ysJbvBj7xFOCrKK J2LJNarKXqZ6CypL7bP zTmSDJdXXDyD7LieLJr HHazD421VQhnOhA0RYV xciUeH1LpYLVigWkyOa I9v2W8Dk0FI7Z0BY64N W97cIQgs0L6eBL4K4Xw KIJugeqqhijnjRN0ICM yDMAqqZ98Kc9jqOcwBi 0qPWEoZDO2OURmsYQiB 6FmuP9rNcNqHZYiCBYo T8OoiGUkNSvfV588HLu qNtJ6DMNfrjXyL1ThSX TtaUxsAcP1k0U5Hu6CP Iv4ZC97OA86aUHmo8R8 gJA2X9DtZAKxdytnlfr uaMT4TBQwJUZriA35Ko 9xnStrOl6cXERwDHH3L RJtcEFaN8ExcS2uJqGq XDRfTGGhC1VzbGVqCNe iQ570EDwuObT1VJCgha OeE2DtKQKzbAhdXqI9i 7E0Fz9HDUUpBF74BTQ6 gLR2BV18SE13Q4JfUvx vdGFibGU+PHRhYmxlIH dpZHRoPScxMDAlJyBzd BprPO4nFu2xTEWoLOSm fTbuqYSyWfIzq8keSPD bCGlyWW7lgNhlH7GniJ R7YAJqx8j8Qq58A80aE 3JvdXA+BJEndUC3tQX7 dM4hJfDhMsA4RXuyI50 8CaBfeIMyRlobv8tsv2 zraSz8RfZ1LJXmdbJix UkiVFZ9c3CmXg56K04o IHdpZHRoPSIxNSUiIHZ ejDurcb7xlM2zAz2+PG ForME6pOO2lY6rOpEnT dX2LEtpF513OdSpoGYf Jsivx6cem9gkaEi0AjH jMQGopqNesNabRHD3d3 YxAg59C6EbvDzzf4JmQ hu1mj93yXTsj9D8xXD9 E4OqLQLjeyxkgRCtzUb sZM6eGEMxgwgdINXidT 3yCOMcL2k4AqWhKvB4Y HciV0SkmkP0DZEtyBJo KXfpDBN7L93uq1X0YLW yNFMpIEQ4mAJ7lO1nkA lnbjogbGVmdDsgdmVyd CchTMfrZMzdZ684FQSb mZhrGWGyaV5bZWIuhHX piYpmHB2tAXSqzfutYk wUU1XFCQnpCQoXQVN1B 2SrBvq5KVDcsXzdHB6x lVSgZDgeBw8uuAuvtDh zEI8fSABwhobaEJQnmY 0kZJRdoJRlcPpxSB6gJ AYsupnle251AoYxCIJ6 BDApdBZmM9XcyT6pObC aUXWyNPGeC3UsiKZiAY ufF857KKouIeH0SDGco gPqU0UnONZhrSbaXtF0 w1H7Hi6vGr2rRg3aIWv 6GC13QX38gKZmt6U1cL W2Y5ZmCWYhdsjwanrei JH9KLHmDCMjvN04lEGp ZQcqLe9uc7V4u441BHI rPYCkvJ47Da5jvAqtGU PrmSOQaL7ztcueb3xbb kvpZiMbSCTmOGx4IPr5 KKQahBoxWrHnKRF9LkX 9TET0kGRorZ0jzZkgze kgzD6wKrw+MzMgWWVhc xP5L2DdQau6SSLkqSwa LG6yjSLnIFhfVi6ahEu quPyvHH4rGJQgnhrpYR NapQ3tVMQbfVWniUtfB S7rFHQzmuaki991QgAg IMN7JSBacFMyH2AmxV2 xJcLkCJOuDUNpB2GxgL WmEIwuY916YGsdFeA2M ZWajaCsY2WaARWmjLer BzL3t4G2Hi2FJJjxYH9 8MR99yELrv3J3yRE1M1 KqXLJjocijinpvsUZ4Z DOkVWTkmJ32uAFdMYxo Kh2om8Z7g178ZSKjPEV soP93Qq6wzTmrWZPrsL IGsD4tfrqea6pmajfsS cToMXLmHRb1GPz2QDSh tYqjStVyFLJ8DoT9VNS 5zPQgkZ4clBftdvzotH 9wOyc+F0Y3cWK5iBPpw DwvdGQ+WA04up32Z8Ac AebtOqf9FXEdWEF7ySR 8jN4gCNBjPFzrq2G9cE Q6B5LptkOmrf5sv2ccG JCaGIyxV57gtWUli3V3 BFIelSH4RJUesEdhEcR nbC93Xpt+PGNvbGdyb3 GmWhiay6kpt8yrvKw8T jMwJSIgdmFsaWduPSJ0 k9EcNk31U32ePEorXRD oPSIzMCUiIHZhbGlnbj 5peM0mFy8+DEHqfFV2p LK9bI1cZpAfQeW3WFcp Z898VlQgtRRkXtfbp4p iv4rpuVk9LaSdKLRpqc LznZhmTHQ5j2EhXd45L 8XwaGgvk9MbAai6pv94 uXVog0Q5pGJ4K9KwBQL dsdwheJGxrHpuDC1iVZ TuqxhbSJPsmY9cCBGiA 4m1ScPrGgZ7HWotC4Cr yxQ4BIZacTFoMUJqoQM VaF9ahfvjj3svmqrdTi NoPTYrURo4EYz1HPAir SdiDjYqSZC8ReJ6YFZ2 uSKxjE2pwAaebgbmuE2 wOyc+DBq0k2scmXXdFW 0dsHL2BZ79SV02xHJqx 4V5uCR8L4YbFUKtwjot uvwpcSI0IJBmMFPanN3 2Ev4qoZsdJf0rOSJqNB J0EIMzpKQqY3BeiB8lS xAiMNChRPLvQ6EzcVMf XQjbW247FZzxDaG7GDS qxeCnI1HxBGWvzMygIb L3i6F1Md1CPK19VJ03D S66aUXyk1L2zOH3Y2Qh BVEwkkabzsvvlAU8AXW pEXGmlU38Jb2rrDxpWx 8eVSKaYEH8AESljKTwG 8AcjT0yOlAlMMJmRNNf Q9DikXSoTFejD143LOk fTsX5NNAoyzOiJ7SsLN PsfPfzNcO7l8R7Zo9RI m11BX64DF62mKLgl1S7 vKW2G5JbAXFkeqxhlud igSW0LNUhIYOowG43Vb 7mdJgsYk5oFTSpWNU9Q OKtrMSbH7HgvF7rEvPj PXTqOTBvL2XfsSSrJAh wB427VJouVsY2BTDcdu FjW1SfVCCegIfuPxW3d 4I3Qw6FTPkpcah7N4Dl PjwvdHI+QT32DKUqRS0 3yGXmpZKth4etcJb5Le HgIMIjDDH5hUbsIMmwk 4LiAFIyZ91xhLEms5M6 IGNv (more content not included)... Normal [facility] FSH and LHon 01-31-2021 Follitropin Qn 6.4 m[IU]/mL Invalid Interpretation Code 1.5-12.4 [facility] Comment on above: Result Comment: Perf ormed at: [employer] [id number] PhD Vivian Bass Performed By: #### 1 [id number], [id number], [id number] #### [facility] [address] [place] [address] Lutropin Qn 10.4 m[IU]/mL High 1.7-8.6 [facility] Comment on above: Performed By: #### 1 [id number], [id number], [id number] #### [facility] [address] [place] [address] Testosterone F&Ton Testosterone [Mass/Vol] 287 ng/dL Invalid Interpretation Code 264916 [facility] Comment on above: Result Comment: Adul t male reference interval is based on a population of healthy nonobese males (BMI <30) between 19 and 39 years old. katelynn Thompson.al. JCEM 2017,102;5206-2617. PMID: 97558991. Performed By: #### 1 [id number], [id number], [id number], [id number] #### [facility] [address] [place] [address] Testosterone Free [Mass/Vol] 7.1 pg/mL Low 8.7-25.1 [facility] Comment on above: Result Comment: Perf ormed at: [facility] [address] [place], [place] [id number] PhD Vivian Bass Performed at: [facility] [address] [place], [place] [id number] MD Josef Almazan Performed By: #### 1 [id number], [id number], [id number], [id number] #### [facility] [address] [place] [address] Consent for Treatmenton Consent for Treatment [id number] [id number]#[id number]:127 Normal [facility] Physician Orderon 01-27-2021 Physician Order [id number]#1.00CD:127 Normal [facility] Prolactinon 01-27-2021 Prolactin [Mass/Vol] 9.62 ng/mL Normal 2.64-13.13 [facility] Comment on above: Performed By: #### 1 [id number], [id number], [id number], [id number] #### [facility] [address] [place] [address] TSHon 01-27-2021 TSH Qn 2.00 m[IU]/L Normal 0.34-5.60 [facility] Comment on above: Performed By: #### 1 [id number], [id number], [id number], [id number] #### [facility] [address] [place] [address] Coding Summary.on 11-11-2020 Coding Summary. CD:[id number] UQm4jVt+PGhlYWQ+PE1 GWTMeA39keJQipO1PE2 qRYF1QKJPNIYOHVP2TF Q4gtBD5DBocM2FnxaXr LdgspQKqRF69HZi2BMN 3oCbqAZunpE3ovWTnH0 z5SdJmPD36aP66QYzkS XFfItG7VqDkfmmcsRCo F5rwQeMaeBNlEmd+PHR hYmxlIHdpZHRoPScxMD KhCaDllFuaPY0hCd4mM GVyLWNvbGxhcHNlOiBj m5ffBHTmNEkuEG3myIb oG1AroOF1KGEjb9l7Wg 48dHI+LBSkQCI2jJmxE Cgiq522LlHqs2shQWC1 kNDxZZttZKV0O16ii9P 9ZNVrTVUhCRB7qNP1nS 2ngYwicsrhS1AktFKmV kK1NZI1dMSynE8yzVdh xxlgcT9oZlm+T19BLP0 CSZFRSJ9PWjg6E4FrWm wvdHI+VP45BOPuYX13d JJmfXZem2veuRd5YfZz WNNvOFP0rZgbLEtxg5K jMRGxP09bwNQvh9E7DD IhuDnjuIHtDfMgnLQ6y A5tUFccgomfm1temjkg Ufdnr1gcxq42uF98C98 xPKioRCKjQXB1YSLlEN SxdZfkkh7ffS2jUb0+I Ptje6ior8byeKp8TtPc NZGemzGdwLlvMBK9k6F nAr47H9GwzVpth7TnDt o8rf41eMMaa4J7eXL9U RsyBCRmhX7tZBzfGeS5 PIDrYjZhqW68hEZyIJu yVp1fiEavqAckTR6kYY NccithAVLjvT2kGGHyy DBxnGthNO2cTCXgwmhe o660AoAqDUC1OXGzcAC cU1FkqE9kXbSiSGEcDF MyV0IraYNlXOeiS919S RzuEaS2QQDpjyYbJ0Mi FISvsTxqVzZ0o8O7Mr1 Ol1QoyjukDKO3XKvcTU M1DnC9CsLbVlO8F0JzC sl4AXLbnMcgYU0nY6Oc VTKgankfgbuzlJM4FCV qGJZfhD92zEMgAAvrGo 0cl3O2i001DDNxXYJne Y03Sr9wwShsRUHxeVVG aG0vjybuy3frryajDyJ jWJEpWHj1BLl6DZUukF kvUwUkOPJ4GaE2SAV1o KYvcF7dsQwnygnrbW7o Oyc+J36bfX9eTPN0CFB 2ofwxJPLbdvOtOX45AN 95L4PkDhibfWWavDH+P SVpezIduQvsBV8uQtLz a8fhe3WlPTflM0FuSWE oGQxlInn3EIBkFQR7zV Y8hV1fSNTlPYrvz0H3n TG1U2AiwoHibr1vi3vw RDHqSXtjH36hiYBzz1V 7DYXzySO8QGMszNsxNe AcuG49Rel+PGNvbGdyb 3OgUgzsa7bzc0xpdWl0 IjMwJSIgdmFsaWduPSJ 3a3PbDe87C17pBRmiCM RoPSIxNSUiIHZhbGlnb m1dgD6gSh6+PGNvbCB3 mNG9pN0pNMHiVoL6VTi pN107IiMwaDEzNfxhh1 jvw5ofcVq1TaOhQKHun nHbhVvvUZX4m1IlNg36 W52mADrpOZRhUGNkPTV qEVKshMkvuc3tkB9zTt 8+HW2au6drig96rT53c HI+VROfXQC6rZsxZOch UODzlA1hCRidXjL4PPI xMhDdgS43lAAlNBfaUr 8qgXwfvQzfJM2iKSUxs aohs888UvSgb7fkVJTu tXFpHUwnPVO4Q76th6A 8HLStJARwDHS5mEU9hD 1hbGlnbjogbGVmdDsgd eIyjYhcAYvyFRpgB033 IHRvcDsnPlBhdGllbnQ pKuKjVPk5T1CbXgv8BV LehCchFS0rrHQpJVcsE f1jyOrgjTbbOI3uLSFm yaqwj277IyLcs0unRML vxMLdMUixZPG0F03cb8 K0LDRrAOOeXEL6eDO2y T2zoGcrzspxgVUjqIca nbOgtZipYXmcNOyxM21 6IHRvcDsnPkJpcnRoIE BmyNL4HK05BI00kAJpe 5Z2qRD5M1VkMDDepuxl xpxktFP3GYUeYUMfdZ3 4Ns4dxBurEd0vPYOfEK S2TLQctAFfY3MwaQ0bR gIdVPQzSXUaR9DkrLDx VTcyY199XZbmWgM7HEO qlvLlQ9JmNLYgoBksIk O2k9V4Gl8YY1B9EH84U H00tPBls9V0zAW3H4Jn WQGrxylwkqfdgGG2CHP eFYDwzY26Oa4yyEdiCe 5cWSTwUEN8GVOokMDvI 6LfqP7lGcOpSTNxVZOx A0MqaLGtMFebK207HWs dBnA3MQIdczVjI1JtBI ZljKzeFoY7s9H0Hh7YL Kf8RI32FR44cARdo5T9 iWB2B0PvXEQfjrjudoy hbYK0WOLsZDYqrR75Dv 5ifWieXf1vQFKcIHV2F EXmfKReT3QnhN5kXyPz QVSaYTErP5KvtMAzUMh cH684DBysJnS0AGPtsa JmP1GgFZZlsSsaZiD4e 6S3Xt6TQYHdVL46YTK8 fLF2ZC23PL31S2UaEfh vdGFibGU+PHRhYmxlIH dpZHRoPScxMDAlJyBzd FaiSQ3vOl9hLFBzQEUi sYhysSRaZzHcn9syDRH rXVyuPP0hgHnmJ2DyfI J3DUFww2x4Ak92P78xX 3JvdXA+AQYdbCF0aBD6 lT5tCmBaJjX6YZibV08 1JgYknOAcYatcl0hav1 xtmAz5CyU5KHBpxmSvv FvkGRT2q7UgVv01Q37j IHdpZHRoPSIxNSUiIHZ kgLdggp4ikJ9hCn5+PG BscLR9xGJ1vD8wSbXqH vW8LZogM161OqPwySDw Gkcni3kgu7jvmKt1SiE cKGQhyaRnpFdzWCC0o2 GnKy12N8NitPbuh7CrD hd3sl86rVXff6J5jLF7 J2NfMMZtvhwcnMBnoHb xAR3pWAVzlpdzSSRobL 9uYDUgP3e5LwTeMqB6G XciV7EbbxD7RGRwbSYc USbuSAG5P01eu8S5MEO lUSDxOPB7wSD4dE4zbC lnbjogbGVmdDsgdmVyd FczKAfyBFqzN414CCTi vWazBMErxV4hBZTyaLI nwGsxUA8yGYCfmnbqSe uUR7ZAOMqoRIpMAAG6C 9KeQic1JVHsyGbaVA7p fNMhOLktHa4fcMadqAw iYH2eZXEzxcryROTxjS 7gRSAspBZttUnxPA6mW SCkritpu752PyGbKKT2 HHQqrBFgS4CcrE7bDbI uPCXdLSPfE6CknTEbVL vbG772ZPnoYmL9QJUof uXcA7NjXGMvcAzgQeF8 x7I2Vq5mFv3zDk1nNCn 3OX41NL76bOVae7N5oH O9R5UsMHPggneyjejuo XM4HGUnUXEsgE27eDWb MLdpSz8qo4U2a225KWU dCICdzT51Yl0grTwoXI ZnbWJDyJ3zogkba6ufq iwdEaRrXIPbWGu5BFw4 NZCbjGiiCtVuAUK1UdC 8CGS8bULykX7ozAbwln fojP2xRsv+MzMgWWVhc uS4T1WvGyg1JEOjsJzh LK4xqICpPAsjJv2adTr ppOvtAR4tTXSobmglOK JxkP8cFAMfoOAnmLcnT O3bMAQpibexw539AnCf HNX8YTCtyOGaR0ArkN2 yGdOaLCHuVCKcP6JkrX DnMBuwK487KUgoUzL5X QRdsfSvR7NpHKVhdKpa SiM9h1B8Gr1QPLfqHC0 9PU03hIEab7Z3vDE4W4 YxDTQmhlnbtdgjdLK5N RJxJPPyrS55gWOxBGau Pf1wl3Y5c793RZLoRVE itQ62Zu9xbZlzKABwcE UHsE5vtybjq5yzwjwmF sNuJVVkIWx9KWr7TLKj kHtuDwYsHIF6PqW5EXH 7lMFmtP2ebGwfcxpsqK 9wOyc+IHWuPOHwx4Jar 5BsVE64AN41H2RoHuhb dGFibGU+PHRhYmxlIHd pZHRoPScxMDAlJyBzdH qjBT7aMa1qAQNqPEIof WdrmSNbTwStk8jnLGDp BIsqYB4neSxtP1AgiML 0SYMpm8a0Fq06J34fQ2 JvdXA+JCUvfEN6qPW4b F9vIzBvZtZ0OEvhA723 ZcUpqQDrXoqvz7lkw8z veQy0KnAiRMGymbKmzN jpSFJ1t7LgSr74D21tE HdpZHRoPSIyMCUiIHZh pKvndp8gnJ7yYz7+PGN ygEV6zIC8dL8mZcKaNm Y1ZSksJ623KoSpcRRiH ccjX57wE7GfqMK+PHRy Tqw7PPMtkEzeRZ6gfHO xQChkPn9nXYP8TtQlGz KoQTlrZ7LrUVNnrspqe dhgdJA3PKAlQAHptE86 Sn8ajOzwNj2xPGThLNZ 1XNSgyPKaN9XgrA7dLu JmEPQcQFPtH2ZfxOToZ MawM407VNqdZrS9SCVh abMyU7VoKUAxhHgkZaC 0p3I9Pd6MvSkexUKeGA 5hGhNsXTq4O4ObCwb9Q HYixVvzKB8tkDNrSCyi Uc3euCejhMckEW8cTBU ozlpyw034SeQqi5ouOA XnhRNfTRxvVZL3N27gc 7Y3YDCaFQNqCMF4nKJ6 xY8fbLznmlrvtPQlcDb gdmVydGljYWwtYWxpZ2 16EZAquNixSwAGPiv1M 7KwGqx4QOGykHonNW4w xALjDXatOi2zyLsffAa tLV4nJFIaifpwz701Xg Vel2cdKEQvkEEbVPdoJ LI5X70of5G0YJMhYXNr TBA4fNW1pG2kdMlqmmf gbGVmdDsgdmVydGljYW uwKAkzM775OVQbwMgwZ j4OXwr9E2HhTor6DUSz yQwuDQ0meIIoOTibPd4 hdRrpeBrlAA1xTPYure nbe101YrEyt2fzUAPsy HSjEZwxISR3Z99jr2X5 BPBdCWOqOAP6uUW1fV4 hbGlnbjogbGVmdDsgdm PzyHusYSkbXSxbP429R HRvcDsnPlBheWVyOjwv dGQ+MT28rs70T9YbOvv qVzp2YCUfPRO0sPR4qJ 9qFONlMOcgp8T7oSJ6D 3PmfaPtlo2vy3oiJXRr ZTog (more content not included)... Normal [facility] Semen An/Cnton 11-05-2020 Crista/Transport Prob No Problems Normal Fish er [facility] Comment on above: Performed By: #### 1 [id number], [id number] ####[facility] [address] [place] [address] Collect. Meth Masturbation Normal [facility] Comment on above: Performed By: #### 1 [id number], [id number] ####[address] [address] Days Abstained 4 day(s) Normal 2-5 [facility] Comment on above: Performed By: #### 1 [id number], [id number] ####[address] [address] Graded Motility 3 Normal [facility] Comment on above: Result Comment: 0 - Non-Motile 1 - Very sluggis, no forward progression 2 - Forward progression present, but very slow 3 - Good forward progression with tail movements visualized 4 - Rapid forward progression with tail movements difficult to visualize Performed By: #### 1 [id number], [id number] ####[address] [address] Motile Sperm 44 % Low 60-100 [facility] Comment on above: Performed By: #### 1 [id number], [id number] ####[address] [address] Semen Viscosity MAXIM Normal <=29 [facility] Comment on above: Performed By: #### 1 [id number], [id number] ####[address] [address] Spec. Container Steril Container Normal [facility] Comment on above: Performed By: #### 1 [id number], [id number] ####[address] [address] Spec. Temp 21 DegC Normal 20-37 [facility] Comment on above: Performed By: #### 1 [id number], [id number] ####[address] [address] Sperm Count 33 Million/mL Normal >=20 [facility] Comment on above: Result Comment: A Co ncentration Technique is used to evaluate all sperm counts <20 million. Performed By: #### 1 [id number], [id number] ####[facility] [address] [place] [address] Sperm pH 8.0 No Units Normal 7.2-8.9 [facility] Comment on above: Performed By: #### 1 [id number], [id number] ####[facility] [address] [place] [address] Volume Semen 0.9 mL Normal 0.7-6.5 [facility] Comment on above: Performed By: #### 1 [id number], [id number] ####[facility] [address] [place] [address] WBC Semen 0 - 2 Invalid Interpretation Code [facility] Comment on above: Performed By: #### 1 [id number], [id number] ####[address] [place] [address] Sperm Morphon 11-05-2020 Sperm Morph <20% abnormal sperms identified. Invalid Interpretation Code [facility] Comment on above: Order Comment: Order Added by Discern Expert. Performed By: #### 1 [id number], [id number] #### [facility] [address] [place] [address] Physician Orderon 10-31-2020 Physician Order [id number] Normal [facility] Vital Signs Date Time Vital Sign Value Performing Clinician Facility 05-23-2024 10:49-0500 Body height 177.8 cm Ariel Chuoll [facility] [facility] Work Phone: [facility] 05-23-2024 10:49-0500 Body mass index (BMI) [Ratio] 33.58 kg/m2 Ariel Chuoll [employer] Work Phone: [facility] 05-23-2024 10:49-0500 Body weight 106.14 kg Ariel Chuoll [employer] Work Phone: [facility] 05-23-2024 10:49-0500 Diastolic blood pressure 80 mm[Hg] Ariel Chuoll [employer] Work Phone: [facility] 05-23-2024 10:49-0500 Heart rate 60 /min Ariel Murphy [employer] Work Phone: [facility] [place] 05-23-2024 10:49-0500 SaO2% (BldA) [Mass fraction] 96 % Ariel Murphy [employer] Work Phone: [facility] 05-23-2024 10:49-0500 Systolic blood pressure 131 mm[Hg] Ariel Murphy [employer] Work Phone: [facility] 05-28-2023 15:45-0500 Body height 177.8 cm Madelyn Breanne Other [employer] [facility] Other 05-28-2023 15:45-0500 Body mass index (BMI) [Ratio] 32.85 kg/m2 Madelyn Breanne Other [facility] Other 05-28-2023 15:45-0500 Body temperature 98.6 [degF] Madelyn Breanne Other [facility] Other 05-28-2023 15:45-0500 Body weight 103.87 kg Madelyn Breanne Other [facility] Other 05-28-2023 15:45-0500 Diastolic blood pressure 111 mm[Hg] Madelyn Breanne Other [facility] Other 05-28-2023 15:45-0500 Respiratory rate 18 /min Madelyn Breanne Other [facility] Other 05-28-2023 15:45-0500 SaO2% (BldA) [Mass fraction] 99 % Madelyn Breanne Other [facility] Other 05-28-2023 15:45-0500 Systolic blood pressure 156 mm[Hg] Madelyn Breanne Other [facility] Other 02-08-2023 15:00-0400 Body height 177.8 cm Earle Gore Other [facility] Other 02-08-2023 15:00-0400 Body mass index (BMI) [Ratio] 32.91 kg/m2 Earle Gore Other [facility] Other 02-08-2023 15:00-0400 Body weight 104.06 kg Earle Gore Other [facility] Other 02-08-2023 15:00-0400 SaO2% (BldA) [Mass fraction] 100 % Earle Gore Other [facility] Other Encounters Encounter Date Encounter Type Care Provider Facility Start: 05-23-2024 End: 05-23-2024 Bamboo flowsheet Ariel Murphy FERRYBOAT DECKHAND Work Phone: [facility] Start: 05-23-2024 End: 05-23-2024 Bamboo flowsheet Ariel Murphy FERRYBOAT DECKHAND [facility] Start: 05-23-2024 End: 05-23-2024 Office outpatient visit 15 minutes Ariel Murphy FERRYBOAT DECKHAND Work Phone: [facility] Comment on above: Cervical radiculopat hy (Primary Dx); Degenerative disc disease, cervical; Transient alteration of awareness; Bilateral tinnitus; Essential hypertension ([facility]/HCC) Start: 05-23-2024 End: 05-23-2024 ambulatory ARIEL MURPHY Not Available Start: 12-06-2023 End: 12-06-2023 ambulatory ARIEL MURPHY Not Available Start: 11-29-2023 End: 11-29-2023 ambulatory KAYLENE MORALES Not Available Start: 11-22-2023 End: 11-22-2023 ambulatory MIRNA CORONADO Not Available Start: 09-09-2023 End: 09-09-2023 Emergency department patient visit Marymarie Pittmanute Che [employer]ER [employer]ER Facility:[facility] Start: 07-12-2023 End: 07-13-2023 ambulatory Madelyn Mims [employer] Facility:[facility] Start: 06-28-2023 End: 06-29-2023 ambulatory Christina Martinez MD Facility:[facility] Start: 05-28-2023 End: 05-28-2023 ambulatory Madelyn Raymundo Other [facility] Other Start: 05-28-2023 Office outpatient vi sit 15 minutes Madelyn Raymundo [facility] Start: 05-24-2023 End: 05-25-2023 ambulatory Christina Martinez MD Facility:[facility] Start: 02-08-2023 End: 02-08-2023 ambulatory Earle Gore Other [facility] Other Start: 02-08-2023 Office consultation new/estab patient 60 min Earle Gore [facility] Start: 01-01-2023 End: 01-01-2023 ambulatory Amado Valladares Facility:[facility] Start: 01-01-2023 End: 01-01-2023 ambulatory FERRYBOAT DECKHAND-C Madelyn Mims Work Phone: [facility] Work Phone: Start: 01-01-2023 End: 01-01-2023 Patient encounter procedure FERRYBOAT DECKHAND-C Madelyn Mims Work Phone: [facility] [address] Work Phone: Start: 10-30-2022 End: 10-31-2022 ambulatory MADELYN MIMS Facility:[facility] Start: 10-28-2022 End: 10-29-2022 ambulatory MADELYN MIMS Facility:[facility] Start: 10-17-2022 End: 10-18-2022 ambulatory MADELYN MIMS Facility:[facility] Start: 08-27-2022 End: 09-17-2022 ambulatory MADELYN MIMS Facility:[facility] Start: 10-16-2018 End: 10-16-2018 Emergency department patient visit F[facility]YD VILLAFA[facility] Procedures Date Procedure Procedure Detail Performing Clinician Start: 01-01-2023 XR pre/post mri xray FERRYBOAT DECKHAND Yessy Mims Work Phone: Start: 01-01-2023 MRI of cervical spin e without contrast DONNY Mims Work Phone: Start: 10-16-2018 ED NURSING COMMUNICATION FLOYD VILLAFANA Plan of Treatment Date Care Activity Detail Author Start: 11-28-2024 End: 11-28-2024 Patient encounter procedure [facility] Start: 05-23-2024 End: 05-23-2024 Patient encounter procedure 05/23/2024 11:00 AM EST Office Visit [facility] [address] [place] [phone] Ariel Murphy NP [address] [place] [phone] Arrived [facility] [place] [facility] Comment on above: Arrived Start: 02-20-2024 Influenza vaccination Influenz a Vaccine (#1) [facility] Immunizations Immunization Date Immunization Notes Care Provider Mary marroquin 10-16-2018 tetanus toxoid, redu sindy diphtheria toxoid, and acellular pertussis vaccine, adsorbed Arielderek Murphy [employer] DECKHAND Work Phone: [facility] 10-07-2000 measles, mumps and rubella virus vaccine Ariel Murphy [employer]KHAND Work Phone: [facility] 02-12-1993 diphtheria, tetanus toxoids and acellular pertussis vaccine, unspecified formulation Ariel Murphy FERR[employer]KHAND Work Phone: [facility] 02-12-1993 trivalent poliovirus vaccine, live, oral Ariel Murphy FERR[employer]BOAT DECKHAND Work Phone: [facility] 06-30-1989 diphtheria, tetanus toxoids and pertussis vaccine Ariel Murphy [employer]ERR[employer]KHAND Work Phone: [facility] 06-30-1989 trivalent poliovirus vaccine, live, oral Ariel Murphy [employer] Work Phone: [facility] 03-17-1989 measles, mumps and rubella virus vaccine Ariel Murphy FERR[employer]KHAND Work Phone: [facility] 08-26-1988 diphtheria, tetanus toxoids and pertussis vaccine Ariel Murphy [employer]ERR[employer]KHAND Work Phone: [facility] 04-08-1988 diphtheria, tetanus toxoids and pertussis vaccine Ariel Murphy [employer]KH[employer] Work Phone: [facility] 04-08-1988 trivalent poliovirus vaccine, live, oral Ariel Murphy [employer] Work Phone: [facility] 1985 diphtheria, tetanus toxoids and pertussis vaccine Ariel Murphy [employer]KHAND Work Phone: [facility] 1985 trivalent poliovirus vaccine, live, oral Ariel Murphy FERR[employer]BOAT DECKHAND Work Phone: [facility] Payers Date Payer Category Payer Private Health Insurance [id number] 2023 Unknown [id number] 2022 Self-pay 2022 Unknown 1985 Unknown [id number] 2.16.8 [id number] 1987 Unknown [id number] 2.16.84 [id number] 1987 Unknown [id number] 2.16.84 [id number] 1987 Unknown [id number] 2.16.84 [id number] 1987 Unknown [id number] 2.16.84 [id number] 1987 Unknown [id number] 2.16. [id number] 1987 Unknown [id number] 2.16. [id number] 1987 Unknown [id number] 2.16. [id number] 1987 Unknown [id number] 2.16. [id number] 1987 Unknown [id number] 2.16.84 0.1.293715.3.579.2.9 1987 Unknown [id number] 2.16.84 [id number] 1987 Unknown [id number] 2.16.84 0.1.906478.3.579.2.9 1987 Unknown [id number] 2.16.84 [id number] 1959 Unknown [id number] Unknown [id number] 2.16.8 [id number] Social History Date Type Detail Facility Tobacco smoking stat [facility] Unknown if ever smoked [facility] Work Phone: Start: 1985 Sex Assigned At Male [facility] Start: 12-03-2023 End: 05-23-2024 Sex Assigned At [facility] Other Start: 11-29-2023 [facility] Start: 11-29-2023 Tobacco use and exposure Smokeless tobacco non-user [facility] Start: 12-06-2023 End: 05-23-2024 Alcoholic beverage intake Current drinker of alcohol (finding) [facility] Start: 12-06-2023 End: 05-23-2024 Alcoholic beverage intake [facility] How often to you hav e a drink containing alcohol? 2-3 time sa week [facility] How many standard drinks containing alcohol do you have on a typical day? 1 or 2 [facility] How often do you hav e 6 or more drinks on 1 occasion? Never [facility] Start: 12-03-2023 Alcohol Comment Caffeine: 1-2 cups per day [facility] Start: 1985 Sex assigned at Not on file [facility] History of Present illness Narrative 05-23-2024 Ariel Murphy, FERRYBOAT DECKHAND - 05/23/2024 11:00 AM EST Note Date & Type Note Facility 05-23-2024 History of Presen t illness Narrative Images from the original note were not included. Chief Complaint Patient presents with Follow-up Subjective Andreas Hernandes is a 38 y.o. male. History of Present Illness The patient presents today for follow up. He denies any episodes of alteration of awareness since the prior neurology appointment on 08/26/2023. He denies seizure-like activity, loss of consciousness, or dizziness since then as well. His tinnitus has improved, and he reports wearing hearing protection (ear plugs) more often at work. He states, everything has kind of settled down. The patient continues to have pain in the neck and upper back on the left. This is chronic and intermittent. He describes it as sharp. Severity is 4/10 to 5/10 on average. It is aggravated by rest and relaxation. The patient suspects this may be due to noticing the patient more when he rests. It is relieved by heat and ibuprofen. He reports taking ibuprofen sparingly. His pain can radiate to the elbow (radial aspect) of the left upper extremity intermittently. He denies numbness, paresthesias, or weakness. He denies bowel/bladder dysfunction, abnormal gait, or balance difficulty. He has not returned to pain management since the prior neurology appointment. He plans to follow up with ENT again in mid 2024. He denies any further new concerns. Review of Systems Constitutional: Negative for appetite change, chills, fatigue, fever and unexpected weight change. HENT: Positive for tinnitus (bilateral non-pulsatile). Negative for trouble swallowing and voice change. Eyes: Negative for visual disturbance. Denies visual change, double vision, or loss of vision Respiratory: Negative for cough, shortness of breath and wheezing. Cardiovascular: Negative for chest pain and palpitations. Gastrointestinal: Negative for abdominal pain, blood in stool, nausea and vomiting. Musculoskeletal: Positive for arthralgias and back pain (intermittent, mid/upper back). Negative for gait problem and myalgias. Neurological: Negative for dizziness, tremors, seizures, syncope, facial asymmetry, speech difficulty, weakness, light-headedness, numbness and headaches. Negative for bowel/bladder dysfunction Psychiatric/Behavioral: Negative for confusion, hallucinations and suicidal ideas. The patient is not nervous/anxious. 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 Family History Problem Relation Name Age of Onset Diabetes Other Social History Tobacco Use Smoking status: Never Smokeless tobacco: Never Substance Use Topics Alcohol use: Yes Alcohol/week: 4.0 standard drinks of alcohol Types: 4 Shots of liquor per week Comment: Caffeine: 1-2 cups per day Allergies: Patient has no known allergies. Vitals: 05/23/24 1049 BP: 131/80 Pulse: 60 SpO2: 96% Body mass index is 33.58 kg/m . weight: 234 lb Neurologic exam: Mental status and general appearance: Awake and alert with unlabored respirations. Oriented to person, place, and time. Recent and remote memory are intact. Speech is clear and fluent without aphasia. Speech is non-dysarthric. Attention and concentration are normal. Fund of knowledge is appropriate for level of education. Cranial nerves: CN II: Visual acuity is normal. Visual burrell full to confrontation. CN III, IV, : Pupils are equal, round, and reactive to light. Extraocular movements intact. No ptosis present. CN V: Facial sensation is normal. CN VII: Full and symmetric facial movement. CN VIII: Hearing is normal to finger rub bilaterally. CN IX and X: Palate elevates symmetrically. CN XI: Shoulder shrug is normal bilaterally. CN XII: Tongue is midline without atrophy or fasciculation. Motor: RUE strength deltoid , biceps , triceps , wrist extensors , wrist flexor , and costume rental clerk strength 5/5. LUE strength deltoid , biceps , triceps , wrist extensors , wrist flexor , and costume rental clerk strength 5/5. RLE strength iliopsoas, quadriceps, tibialis anterior, and plantar flexion strength 5/5. LLE strength iliopsoas, quadriceps, tibialis anterior, and plantar flexion strength 5/5. Tone and bulk are normal. Sensory: Sensation is intact to light touch throughout all four extremities. Sensation is intact to temperature in all extremities. Reflexes: RUE biceps reflex 2+ , brachioradialis reflex 2+. LUE biceps reflex 2+ , brachioradialis reflex 2+. RLE Knee reflex 2+. LLE Knee reflex 2+. Coordination: Fxqevp-ax-ljon testing normal. Rapid alternating movements are normal. Gait: Normal. Review and summary of old records: EMG of the bilateral upper extremities at [facility] on 03/23/23: Remote C8 motor radiculopathy on the right which is very mild. Routine EEG at [facility] on 03/11/23: Normal. MRI of the cervical spine on 01/01/23: No fracture or subluxation. No cord compression or signal abnormality. At C6-C7, there is a broad-based disc bulge with facet hypertrophy. There is minimal spinal canal narrowing with minimal bilateral neural foraminal narrowing. Orthostatic vital signs at [facility] on 12/09/22: No evidence of orthostatic hypotension. Heart rate from 74-93 beats per minute, and the patient was symptomatic. Does not fulfill criteria for POTS, but the patient was quite hypertensive throughout all testing MRI of the brain on 10/28/22: Unremarkable. CT angiogram of the neck on 10/30/22: Unremarkable. X-ray of the cervical spine on 10/28/22: Unremarkable. Assessment/Plan Diagnoses and all orders for this visit: Cervical radiculopathy Degenerative disc disease, cervical It is my impression that the patient has cervical radiculopathy. The patient had evidence of cervical radiculopathy on [facility] EMG from 03/23/23. Additionally, MRI of the cervical spine on 01/01/23 did identify facet disease and minimal bilateral neural foraminal narrowing. He failed physical therapy. He reports posterior neck pain with intermittent radicular pain in the left C6 dermatomal distribution recently but states his symptoms remain tolerable/well controlled. He had a positive response to procedural injections with Dr. Gore (pain management provider) previously and has not required any prescription pharmacologic therapy or procedural interventions in the past six months to control his symptoms. No pathologic hyperreflexia or other significant signs/symptoms of cervical myelopathy are present. PLAN: - I advised the patient to follow up with pain management for further evaluation and treatment if his pain worsens in the future Transient alteration of awareness The patient previously reported episodes of transient alteration of awareness which were episodic and could be triggered by neck pain with flexion and rotation. He also reportedly experienced dizziness, blurred vision, and swelling to the back of his skull during these episodes. Etiology is unclear to me. MRI of the brain and cervical spine were unremarkable for cause. Routine EEG on 03/11/23 was normal. Given the clinical description and testing results, I have low suspicion that these episodes represented epileptic seizure activity. The patient denies any seizure-like activity or similar episodes in greater than 1 year. PLAN: - Could consider further work up (CTA, longer-term EEG monitoring) if episodes recur in the future. Deferred today, as his symptoms have reportedly resolved - Follow up with primary care provider to evaluate for potential cardiac issues Bilateral tinnitus The patient reports bilateral non-pulsatile tinnitus (left > right). MRI of the brain on 10/28/22 was unremarkable for cause. The patient was evaluated by Dr. Morales (ENT) on 11/29/23, and he recommended the patient follow up in 1 year for hearing testing. PLAN: - Follow up with ENT per their recommendations - I again encouraged the patient to utilize appropriate hearing protection at work to reduce the risk of hearing loss. He verbalizes understanding Essential hypertension ([facility]) Blood pressure is improved today (131/80) when compared to the prior appointment. PLAN: - Follow up closely with primary care provider for management I recommended follow up in the neurology office within 1 year. The patient declined. He states he would like to follow up on an as-needed basis in the future, which I find reasonable. Red flag symptoms of spinal cord compression/myelopathy have been discussed with the patient. The patient understands to seek emergent care in the emergency department if he develops any signs or symptoms of these in the future. He also was advised to notify our office if his episodes of altered awareness/dizziness return. He verbalizes understanding. Diagnosis and treatment options discussed in detail. All questions answered. The patient verbalizes understanding and is agreeable to the plan. Discussion in layman's terms. Follow up in the office as needed if symptoms worsen or return. JIMMY Vick [facility] documented in this encounter [facility] Evaluation note 05-28-2023 Note Date & Type [...] with diagnosis of hypertension (ICD-10 - I10) [employer] [facility] Other Evaluation note 02-08-2023 Note Date & [...] negative findings were considered in medical decision-making. [employer] [facility] Other Evaluation note Note Date & Type Note Facility Evaluation note No assessment information availa [facility] Work Phone: Evaluation note Note Date & Type Note Facility Evaluation note Diagnosis Cervical radiculopathy- Primary Brachial neuritis or radiculitis nos Degenerative disc disease, cervical Transient alteration of awareness Bilateral tinnitus Essential hypertension (CMS/HCC) Unspecified essential hypertension documented in this encounter [facility] History general Narrative - Reported Note Date & Type Note Facility History general Narrative - Reported Type Medical History GERD [facility] Other Summary Purpose Family History No Family History Records FoundNo Family History Records FoundNo Family History Records FoundNo Family History Records FoundNo Family History Records FoundNo Family History Records Found Advance Directives Advance Directive Response Recorded Date/ Time Advance Directives No December 18 4:11pm Chief Complaint and Reason for Visit Chief Complaint R29.898 Additional Source Comments (unrecognized sect ion and content) No Status Records FoundNo Status Records FoundNo Status Records FoundNo Status Records FoundNo Status Records FoundNo Status Records Found INFORMATION SOURCE (unrecogn ized section and content) DATE CREATED AUTHOR 10/19/2018 [facility] DATE CREATED AUTHOR AUTHOR'S ORGANIZ ATION 02/03/2021 [facility] DATE CREATED AUTHOR AUTHOR'S ORGANIZ ATION 11/02/2022 [facility] DATE CREATED AUTHOR AUTHOR'S ORGANIZ ATION 01/07/2023 [facility] DATE CREATED AUTHOR AUTHOR'S ORGANIZ ATION 10/29/2023 [facility] DATE CREATED AUTHOR AUTHOR'S ORGANIZ ATION 05/25/2024 [facility] Care Teams (unrecognized sec tion and content) Team Status: Active Member Role Status Dates DONNY Ewing Primary Care Provider Active Team Status: Inactive Member Role Status Dates Amado Valladares DO Attending Provider Active DONNY Ewing Primary Care Provider Active Computer System Validation Specialist Relationship Specialty Start Date End Date Michael Martin MD [address] [place] [phone] PCP - General Family Medicine 11/22/23 Ariel Murphy NP [address] [phone] Nurse Practitioner Neurology 11/22/23 Mirna Coronado, SHANNAN [address] [place] [address] Audiology 11/22/23 Computer System Validation Specialist Relationship Specialty Start Date End Date Michael Martin MD [address] [place] [address] PCP - General Family Medicine 11/22/23 Ariel Murphy NP [address] [phone] Nurse Practitioner Neurology 11/22/23 Mirna Coronado, AUD [address] [place] [address] Audiology 11/22/23 Goals (unrecognized section and content) Goals may be documented in a n alternate sectionNo InformationNo Information REASON FOR VISIT (unrecogniz ed section and content) Reason Comments Follow-up FOR RECORDS PERTAINING TO PATIENTS WHO ARE [...] BE BASED ON THE PRIMARY CLINICAL RECORDS. [email or web address] provides no warranty or guarantee of the accuracy or completeness of information in this document.
[2024-08-31] MEDS: ADACEL DIPH,PERTUSS(ACELL),TET VAC/PF 0.5 ML ADULT SYRINGE IM (13:32)
[2024-08-31] MEDS: BACITRACIN 0.9 GM PACKET 1 PACKET TOPICAL (13:32)
== END 2024-08-31 13:51 | disposition home or self-care (01) ==
PROVIDERS: Emergency Provider Emergency Medicine; PCP Nurse Practitioner Family
DX: S67.197A Crushing injury of left little finger, initial encounter (principal); X58.XXXA Exposure to other specified factors, initial encounter; Z23 Encounter for immunization
CPT/HCPCS: 73140; 90471; 90715; 99284

== ENCOUNTER 2024-11-06 17:55 | Emergency (ER) | payer OTHER, SELFPAY ==
[2024-11-06 18:07] VITALS: BP 132/96; PULSE 120; TEMP 38.1; O2SAT 97; BMI 28.7
--- NOTE | 2024-11-06 18:09 | ECG_ITS ---
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 Measurements Intervals [place] Rate: 118 P: 53 [place]: 126 QRS: 26 QRSD: 90 T: 43 QT: 312 QTc: 382 Interpretive Statements 1120 Sinus tachycardia 4068 Nonspecific Twave abnormality abnormal ECG No previous ECG available for comparison Electronically Signed On 11-06-2024 19:46:30 EDT by JEN WILLIS M.D.
--- NOTE | 2024-11-06 18:11 | ED.NAVMDI1 ---
HPI - Nausea/Vomiting/Diarrhea General Chief complaint: Nausea/Vomiting/Diarrhea Stated complaint: VOMITING, FEVER Time Seen by Provider: 11/06/24 18:04 History of Present Illness HPI Narrative: The patient is a 39-year-old male is coming to the ER with 2 weeks history of cough that is not getting better, the patient was just evaluated in urgent care where they added some Zofran for his nausea he also had 1 episode of vomiting before arrival that according to him showed some brown vomiting, the patient have some abdominal pain mostly epigastric and suprapubic He had some fever and continuous cough he was already prescribed azithromycin at the outpatient and prednisone by his primary care The patient have no chest pain Related Data Home Medications ?Medication ?Instructions ?Recorded ?Confirmed metoprolol tartrate 50 mg tablet 50 mg PO Q12H 05/24/23 11/06/24 azithromycin 250 mg tablet mg 11/06/24 benzonatate 200 mg capsule mg PO 11/06/24 prednisone 20 mg tablet mg 11/06/24 Allergies Allergy/AdvReac Type Severity Reaction Status Date / Time No Known Drug Allergies Allergy Verified 11/06/24 18:06 Review of Systems ROS Status of ROS 10 or more systems reviewed and unremarkable except as noted in history and below PFSH PFS Social History Little interest or pleasure in doing things: not at all Feeling down, depressed, or hopeless: not at all Exam Narrative Exam Narrative: Nurses notes and vital signs reviewed and patient is not hypoxic. General: Well-appearing and in no apparent distress. Skin: Warm, dry, no pallor noted. No rash. Head: Normocephalic, atraumatic. Neck: Supple, non-tender. Cardiovascular: Regular Rate and Rhythm without murmur, gallop or rub. Respiratory: No accessory muscle use or respiratory distress. Lungs rhonchi heard in both lung burrell mostly in the bases. Back: No midline thoracic or lumbar vertebral tenderness. No CVA tenderness Musculoskeletal: normal ROM, no calf or popliteal tenderness, no lower extremity edema/swelling GI: Abdomen is soft, non-distended. Normal bowel sounds. No masses appreciated. No tenderness to palpation. No rebound, guarding, or rigidity noted. Neurological: A&O x4. No cranial nerve dysfunction observed. No truncal ataxia. Constitutional Vital Signs, click to edit/add: Last Vital Signs Temp 100.5 F H 11/06/24 18:07 Pulse 120 H 11/06/24 18:07 Resp 20 11/06/24 18:07 BP 132/96 H 11/06/24 18:07 Pulse Ox 97 11/06/24 18:07 O2 Del Method Room Air 11/06/24 18:07 Course Vital Signs Vital signs: Vital Signs Temperature 100.5 F H 11/06/24 18:07 Pulse Rate 120 H 11/06/24 18:07 Respiratory Rate 20 11/06/24 18:07 Blood Pressure 132/96 H 11/06/24 18:07 Pulse Oximetry 97 11/06/24 18:07 Oxygen Delivery Method Room Air 11/06/24 18:07 Temperature 100.5 F H 11/06/24 18:07 Pulse Rate 120 H 11/06/24 18:07 Respiratory Rate 11/06/24 18:07 Blood Pressure 132/96 H 11/06/24 18:07 Pulse Oximetry 97 11/06/24 18:07 Oxygen Delivery Method Room Air 11/06/24 18:07 MDM - Nausea/Vomiting/Diarrhea MDM Narrative Medical decision making narrative: The patient EKG showing sinus tachycardia Due to the fever and the fact that the patient has been having a cough for 2 weeks there is a high suspicion of possible sepsis and that why was started with a blood culture and lactic as well Patient was started on IV fluid and fever control with Tylenol the pt blood work up including CBC chemistry troponin are pending and the care will be transferred at the end of the shift Lab Data Labs: Lab Results 11/06/24 Range/Units 18:16 WBC 10.0 (4.0-11.0) 10^3/uL RBC 5.25 (4.70-6.10) 10^6/uL Hgb 15.4 (14.0-18.0) g/dL Hct 43.1 (42.0-54.0) % MCV 82.1 (80.0-94.0) fL MCH 29.3 (25.9-34.0) pg MCHC 35.7 H (29.9-35.2) g/dL RDW 13.0 (11.0-15.0) % Plt Count 285 (150-450) 10^3/uL MPV 8.8 L (9.5-13.5) fL Discharge Plan Discharge Patient Disposition: Still a Patient
--- NOTE | 2024-11-06 18:28 | XR_ITS ---
[facility] [place] [id number] Patient Name: ROSALINE LI MRN: [id number] date: 1985 Sex: M Assigned Patient Location: ED.MAIN Current Patient Location: ED.MAIN Accession/Order Number: [id number] Exam Date: 11/06/2024 18:37 Report Date: 11/06/2024 18:39 At the request of: SONALI CRESPO MD Procedure: XR chest 1V XR chest 1V 11/06/2024 6:31 PM SIGNS AND SYMPTOMS: ^sob PROTOCOL: Frontal radiograph of the chest COMPARISON: None FINDINGS: The trachea is midline. The heart and mediastinal structures are within normal limits. There is a calcified granuloma in the right midchest. The lung parenchyma is otherwise clear. The bony thorax is intact. XR/XR chest 1V IMPRESSION: No acute cardiopulmonary pathology. Impression dictated by: Bean Hill M.D. 11/06/2024 6:39 PM Dictation Location: [place] [address] Electronically authenticated by: [id number] Y Date: 11/06/2024 18:39
[2024-11-06] MEDS: ACETAMINOPHEN 325 MG TABLET 650 MG PO (18:37)
[2024-11-06] MEDS: 0.9 % SODIUM CHLORIDE 1,000 ML 1000 ML IV (18:37)
[2024-11-06 18:42] LABS: Hematocrit 43.1 % (42.0-54.0); Hemoglobin 15.4 g/dL (14.0-18.0); Mean Corpuscular HGB Conc 35.7 g/dL (29.9-35.2); Mean Corpuscular Hemoglobin 29.3 pg (25.9-34.0); Mean Corpuscular Volume 82.1 fL (80.0-94.0); Mean Platelet Volume 8.8 fL (9.5-13.5); Platelet Count 285 10^3/uL (150-450); Red Blood Count 5.25 10^6/uL (4.70-6.10)
[2024-11-06 19:00] LABS: Alanine Aminotransferase 57 U/L (16-63); Albumin Globulin Ratio 1.1; Albumin Level 3.8 g/dL (3.4-5.0); Alkaline Phosphatase 69 U/L (46-116); Anion Gap 15.2; Aspartate Amino Transferase 21 U/L (15-37); BUN Creatinine Ratio 10.8; Band Neutrophils Absolute 0.1 10^3/uL (0.0-0.3); Bilirubin Total 0.7 mg/dL (0.2-1.0); Calcium 8.6 mg/dL (8.5-10.1); Carbon Dioxide 23.6 mmol/L (21.0-32.0); Chloride 105 mmol/L (98-107); Estimated GFR (African America >60 (>=60 mL/min/1.73m^2); Estimated GFR (Non-African Ame >60 (>=60 mL/min/1.73m^2); Globulin 3.5 g/dL; Glucose 165 mg/dL (74-106); Potassium 3.8 mmol/L (3.5-5.1); Sodium 140 mmol/L (136-145); Total Protein 7.3 g/dL (6.4-8.2)
[2024-11-06 19:03] LABS: Lactate/Lactic Acid 2.2 mmol/L (0.4-2.0); Troponin I High Sensitivity 4.3 pg/mL (4.0-76.1)
[2024-11-06 19:08] LABS: Influenza Virus A Antigen Negative; Influenza Virus B Antigen Negative; Internal Control Within Normal Limits; SARS-CoV-2 Ag NEGATIVE (NEGATIVE)
[2024-11-06 19:37] VITALS: BP 113/69; PULSE 102; TEMP 37.1; O2SAT 95
--- NOTE | 2024-11-06 19:38 | ED_ITS ---
HPI HPI - General Adult General Chief complaint: Nausea/Vomiting/Diarrhea Stated complaint: VOMITING, FEVER Time Seen by Provider: 11/06/24 18:04 Source: patient Mode of arrival: walk-in History of Present Illness HPI narrative: 39-year-old male presented to the emergency department and was initially seen by Dr. Yun and signed out to me after discussing the case with her thoroughly. Please see her full history and physical exam Related Data Home Medications ?Medication ?Instructions ?Recorded ?Confirmed metoprolol tartrate 50 mg tablet 50 mg PO Q12H 3 11/06/24 azithromycin 250 mg tablet mg 11/06/24 benzonatate 200 mg capsule mg PO 11/06/24 prednisone 20 mg tablet mg 11/06/24 Previous Rx's ?Medication ?Instructions ?Recorded esomeprazole magnesium 20 mg 20 mg PO DAILY #14 caps 0 11/06/24 capsule,delayed release (Nexium) pseudoephedrine 30 mg-codeine 10 10 ml PO Q6H PRN coug h #200 mL 11/06/24 mg-guaifen 200 mg/5 mL oral liquid sulfamethoxazole 800 1 tab PO BID 10 days #20 tab s 11/06/24 mg-trimethoprim 160 mg tablet (Bactrim DS) Allergies Allergy/AdvReac Type Severity Reaction Status Date / Time No Known Drug Allergies Allergy Verified 11/06/24 18:06 Opioid HPI Opioid Management Most Recent Opioid Data: Last Pain Scale 4 06/28/23, 07:41 PFSH PFSH Social History Little interest or pleasure in doing things: not at all Feeling down, depressed, or hopeless: not at all Exam Constitutional Vital Signs, click to edit/add: Last Vital Signs Temp 98.8 F 11/06/24 19:37 Pulse 102 H 11/06/24 19:37 Resp 16 11/06/24 19:37 BP 113/69 11/06/24 19:37 Pulse Ox 95 11/06/24 19:37 O2 Del Method Room Air 11/06/24 18:07 Course Vital Signs Vital signs: Vital Signs Temperature 100.5 F H 11/06/24 18:07 Pulse Rate 120 H 11/06/24 18:07 Respiratory Rate 20 11/06/24 18:07 Blood Pressure 132/96 H 11/06/24 18:07 Pulse Oximetry 97 11/06/24 18:07 Oxygen Delivery Method Room Air 11/06/24 18:07 Temperature 98.8 F 11/06/24 19:37 Pulse Rate 102 H 11/06/24 19:37 Respiratory Rate 16 11/06/24 19:37 Blood Pressure 113/69 11/06/24 19:37 Pulse Oximetry 95 11/06/24 19:37 Oxygen Delivery Method Room Air 11/06/24 18:07 Medical Decision Making MDM Narrative Medical decision making narrative: Workup is negative including his chest x-ray. COVID and influenza swabs are and his hemoglobin is 15.4. His main concern tonight was the vomiting of black material. His hemoglobin is appropriate and it occurred a single time. At this point he does not warrant admission to the hospital. He is however placed on Nexium and I will cover him also with Bactrim and cough medication. He is finishing his course of Zithromax today which does not seem to have improved his symptoms. He also has finished his prednisone and was advised that we would not give more prednisone at this point. Treatment diagnosis and follow-up were discussed with the patient and his . Differential Diagnosis Differential Diagnosis: Upper respiratory infection, COVID, influenza, pneumonia, gastritis Lab Data Lab results reviewed: Yes I reviewed the patient's lab results Labs: Lab Results 11/06/24 11/06/24 Range/Units 18:16 18:52 WBC 10.0 (4.0-11.0) 10^3/uL RBC 5.25 (4.70-6.10) 10^6/uL Hgb 15.4 (14.0-18.0) g/dL Hct 43.1 (42.0-54.0) % MCV 82.1 (80.0-94.0) fL MCH 29.3 (25.9-34.0) pg MCHC 35.7 H (29.9-35.2) g/dL RDW 13.0 (11.0-15.0) % Plt Count 285 (150-450) 10^3/uL MPV 8.8 L (9.5-13.5) fL Seg Neuts % (Manual) 88.0 H (43.0-75.0) Band Neutrophils % 1.0 (0-5) % Lymphocytes % (Manual) 4.0 L (20.5-60.0) % Monocytes % (Manual) 7.0 (1.7-12.0) % Eosinophils % (Manual) 0.0 L (0.9-7.0) % Basophils % (Manual) 0.0 L (0.2-2.0) % Neutrophils # (Manual) 8.80 H (1.4-6.5) 10^3/uL Band Neutrophils # 0.1 (0.0-0.3) 10^3/uL Lymphocytes # (Manual) 0.40 L (1.20-3.80) 10^3/uL Monocytes # (Manual) 0.70 (0.30-0.80) 10^3/uL Eosinophils # (Manual) 0.00 (0.00-0.70) 10^3/uL Basophils # (Manual) 0.00 (0.00-0.10) 10^3/uL Sodium 140 (136-145) mmol/L Potassium 3.8 (3.5-5.1) mmol/L Chloride 105 (98-107) mmol/L Carbon Dioxide 23.6 (21.0-32.0) mmol/L Anion Gap 15.2 BUN 13.0 (7.0-18.0) mg/dL Creatinine 1.20 (0.70-1.30) mg/dL Est GFR ( Amer) >60 (>=60 mL/min/1.73m^2) Est GFR (Non-Af Amer) >60 (>=60 mL/min/1.73m^2) BUN/Creatinine Ratio 10.8 Glucose 165 H (74-106) mg/dL Lactate 2.2 H* (0.4-2.0) mmol/L Calcium 8.6 (8.5-10.1) mg/dL Total Bilirubin 0.7 (0.2-1.0) mg/dL AST 21 (15-37) U/L ALT 57 (16-63) U/L Alkaline Phosphatase 69 (46-116) U/L Troponin I High Sens 4.3 (4.0-76.1) pg/mL Total Protein 7.3 (6.4-8.2) g/dL Albumin 3.8 (3.4-5.0) g/dL Globulin 3.5 g/dL Albumin/Globulin Ratio 1.1 Influenza Type A Ag Negative Influenza Type B Ag Negative SARS-CoV-2 Ag (CV2AG) Negative (NEGATIVE) Imaging Data Chest x-ray: Radiologist's impression: ITS Impressions Chest X-Ray 11/06/24 18:28 IMPRESSION: No acute cardiopulmonary pathology. Impression dictated by: Bean Hill M.D. 11/06/2024 6:39 PM Dictation Location: [place] [address] Electronically authenticated by: [id number] Y Date: 11/06/2024 18:39 Discharge Plan Discharge Chief Complaint: Nausea/Vomiting/Diarrhea Clinical Impression: Upper respiratory infection, Vomiting Patient Disposition: Home, Self-Care Time of Disposition Decision: 19:35 Condition: Good Mode of Transportation: Private Vehicle Prescriptions / Home Meds: New sulfamethoxazole-trimethoprim [Bactrim DS] 800-160 mg tablet 1 tab PO BID 10 Days Qty: 20 0RF [id number]-[id number]-[id number] 30-10-200 mg/5 mL liquid 10 ml PO Q6H PRN (Reason: cough) Qty: 200 0RF esomeprazole magnesium [Nexium] 20 mg capsule,delayed release(DR/EC) 20 mg PO DAILY Qty: 14 0RF No Action metoprolol tartrate 50 mg tablet 50 mg PO Q12H azithromycin 250 mg tablet benzonatate 200 mg capsule PO prednisone 20 mg tablet Print Language: Bermudian Instructions: Upper Respiratory Infection (ED) Referrals: RAGHAVENDRA MIMS [Primary Care Provider, Family Practice] - 1 week
[2024-11-07 19:21] LABS: A. calcoaceticus-baumannii Cpx NOT DETECTED (NOT DETECTE); Bacteroides fragilis NOT DETECTED (NOT DETECTE); Candida albicans NOT DETECTED (NOT DETECTE); Candida auris NOT DETECTED (NOT DETECTE); Candida glabrata NOT DETECTED (NOT DETECTE); Candida krusei NOT DETECTED (NOT DETECTE); Candida parapsilosis NOT DETECTED (NOT DETECTE); Candida tropicalis NOT DETECTED (NOT DETECTE); Cryptococcus neoformans/gattii NOT DETECTED (NOT DETECTE); Enterobacter cloacae complex NOT DETECTED (NOT DETECTE); Enterobacterales NOT DETECTED (NOT DETECTE); Enterococcus faecalis NOT DETECTED (NOT DETECTE); Enterococcus faecium NOT DETECTED (NOT DETECTE); Haemophilus influenzae NOT DETECTED (NOT DETECTE); Klebsiella aerogenes NOT DETECTED (NOT DETECTE); Klebsiella pneumoniae group NOT DETECTED (NOT DETECTE); Listeria monocytogenes NOT DETECTED (NOT DETECTE); Neisseria meningitidis NOT DETECTED (NOT DETECTE); Proteus spp. NOT DETECTED (NOT DETECTE); Pseudomonas aeruginosa NOT DETECTED (NOT DETECTE); Salmonella spp. NOT DETECTED (NOT DETECTE); Serratia marcescens NOT DETECTED (NOT DETECTE); Staphylococcus epidermidis NOT DETECTED (NOT DETECTE); Staphylococcus lugdunensis NOT DETECTED (NOT DETECTE); Staphylococcus spp. NOT DETECTED (NOT DETECTE); Stenotrophomonas maltophilia NOT DETECTED (NOT DETECTE); Streptococcus agalactiae NOT DETECTED (NOT DETECTE); Streptococcus pneumoniae NOT DETECTED (NOT DETECTE); Streptococcus pyogenes NOT DETECTED (NOT DETECTE); Streptococcus spp. NOT DETECTED (NOT DETECTE)
[2024-11-07 21:50] LABS: Source BLOOD
--- NOTE | 2024-11-07 22:06 | PC.NURSE ---
Patient has positive preliminary blood culture. Dr. cho notified. Patient was sent home on Bactrim. No change in medication at this time.
== END 2024-11-06 19:53 | disposition home or self-care (01) ==
PROVIDERS: Emergency Medicine; Emergency Provider Emergency Medicine; PCP Nurse Practitioner Family
DX: J06.9 Acute upper respiratory infection, unspecified (principal); R11.10 Vomiting, unspecified; R50.9 Fever, unspecified
CPT/HCPCS: 36415; 71045; 80053; 83605; 84484; 85007; 85027; 87040; 87150; 87804; 87811; 93005; 96360; 99285